=== PATIENT | female | born 1935 | race Caucasian/White ===

== ENCOUNTER 2016-04-13 13:16 | Emergency (ER) | payer OTHER, MEDICARE ==
[2016-04-13 13:31] VITALS: BP 145/83
--- NOTE | 2016-04-13 14:39 | RAD ---
INDICATION: Trauma to left cheek COMPARISON: None TECHNIQUE: Axial source images were acquired from the vertex of the mandible through the orbits. Coronal and sagittal reconstructed images were acquired. FINDINGS: Bones: There is no acute facial bone fracture. There is advanced degenerative changes cervical spine from C4 through the C6-C7 level with reversal of the normal cervical lordosis and retrolisthesis of C4 relative to C3. The findings are identical to the CT of the cervical spine from October 13, 2013. Orbits: The globes and intraconal structures appear intact. The optic nerves are symmetric. Extraocular muscles appear normal. There is no intraconal inflammatory change or retrobulbar mass.. Paranasal sinuses: The paranasal sinuses are clear. Brain: There are no acute abnormalities of the visualized brain parenchyma. Soft tissues: There is prominent soft tissue swelling over the left maxillary antrum with infiltration of the fat consistent with an infiltrative hematoma. There are no other soft tissue abnormality. Other: None The visualized soft tissue elements about the neck appear normal. IMPRESSION: SOFT TISSUE SWELLING/HEMATOMA LEFT MAXILLARY REGION. NO ACUTE FACIAL BONE FRACTURE.
--- NOTE | 2016-04-13 14:46 | RAD ---
Indication: Blunt head trauma. Large hematoma at upper RIGHT cheek. On Coumadin. Comparison: February 22, 2016 Technique: Noncontrast CT vertex of skull through foramen magnum. Report: Mild to moderate prominence of the cerebral sulci and cerebellar fissures. Proportional enlargement of the lateral and third ventricles. Patent basal cisterns. Negative for soto matter white matter obscuration, intra or extra-axial hemorrhage, or mass effect. Decreased density in the periventricular and subcortical white matter while non-specific is most likely due to chronic microangiopathy. Unremarkable visualized orbital contents. Negative for calvarial or skull base fracture. Negative for scalp hematoma. Clear visualized paranasal sinuses and mastoid air spaces. IMPRESSION: 1. No evidence for traumatic brain injury. 2. Involutional change and stigmata of chronic small vessel ischemic disease.
--- NOTE | 2016-04-13 15:04 | UC ---
Head Injury HPI - HPI Summary HPI Summary: 80 year old female with complaints of fall with facial injury approx 30 min ago. Pt states she was walking on the sidewalk to physical therapy and tripped. She struck her left face on the side walk. denies LOC. Denies headache , Denies nausea or vomiting. Denies weakness, neck pain or back pain. On coumadin for afib No focal deficit No distracting injury - History Of Current Complaint Chief Complaint: UCGeneralIllness Stated Complaint: FACIAL INJURY Time Seen by Provider: 04/13/16 13:26 Hx Obtained From: Patient, Family/Rigger Supervisor - ?: No Onset/Duration: Sudden Onset, Lasting Hours - 30 min, Still Present Severity Currently: Mild Severity Initially: Severe Character: Pressure - left cheek Alleviating Factor(s): Nothing Associated Signs And Symptoms: Negative: LOC (Time In Secs./Mins/Hrs), LOC Duration Unknown, Confusion, Memory Loss, Seizure, Epistaxis, Dental Malocclusion, Neck Pain, Nausea, Vomiting Anticoagulant Therapy: Coumadin - for A-fib - Risk Factors SDH Risk Factor: Recent Trauma - fall - Allergies/Home Medications Allergies/Adverse Reactions: Allergies Allergy/AdvReac Type Severity Reaction Status Date / Time Codeine Allergy Unknown Verified 04/13/16 13:22 Reaction Details Morphine Allergy Unknown Verified 04/13/16 13:22 Reaction Details PMH/Surg Hx/FS Hx/Imm Hx Previously Healthy: Yes Endocrine History Of: Denies: Diabetes Cardiovascular History Of: Reports: Cardiac Disorders - Afib, Hypertension Denies: Pacemaker/ICD Respiratory History Of: Reports: Pneumonia Denies: Asthma Psychological History Of: Reports: Anxiety, Depression Cancer History Of: Denies: Breast Cancer Other History Of: Anticoagulant Therapy - plavix, coumadin - Surgical History Surgical History: Yes Surgery Procedure, Year, and Place: AORTIC VALVE REPLACED, STENT 2009. Tonsilectomy - Family History Known Family History: Positive: Hypertension Negative: Diabetes Family History: No FHx breast cancer - Social History Occupation: Retired Lives: With Family - Alcohol Use: None Substance Use Type: None Smoking Status (MU): Former Smoker - Immunization History Most Recent Influenza Vaccination: fall 2014 Most Recent Tetanus Shot: unk Most Recent Pneumonia Vaccination: patient not sure Review of Systems Constitutional: Negative Skin: Bruising - at left upper cheek Eyes: Negative ENT: Negative Respiratory: Negative Cardiovascular: Negative Gastrointestinal: Negative Genitourinary: Negative Motor: Negative Neurovascular: Negative Musculoskeletal: Negative Neurological: Negative Psychological: Negative All Other Systems Reviewed And Are Negative: Yes Physical Exam Triage Information Reviewed: Yes Appearance: Well-Appearing, Well-Nourished, Pain Distress - at left upper cheek - holding ice on it Vital Signs: Initial Vital Signs Temp 98 F 04/13/16 13:23 Pulse 83 04/13/16 13:23 Resp 18 04/13/16 13:23 BP 145/83 04/13/16 13:23 Pulse Ox 95 04/13/16 13:23 Vital Signs Reviewed: Yes Eyes: Positive: Conjunctiva Clear, Other: - PERRLA, good ocular movement. Obvious swelling from upper left cheek to lateral left canthus.. Negative: Discharge ENT: Positive: Pharynx normal, TMs normal - no medel sign., Other: - tenderness over left lateral orbit. able to open and close jaw without pain or clicking.. Negative: Nasal congestion, Nasal drainage Dental: Positive: Other: - teeth intact Neck: Positive: Supple, Nontender - no midline cervical tenderness, No Lymphadenopathy Respiratory: Positive: Chest non-tender, Lungs clear, Normal breath sounds Cardiovascular: Positive: No Murmur - regular rate, irregular rhythum, hx of afib Abdomen Description: Positive: Nontender, No Organomegaly, Soft. Negative: CVA Tenderness (R), CVA Tenderness (L), Distended, Guarding Musculoskeletal: Positive: Strength Intact - able to walk bearing full weight, ROM Intact - moving all 4 extremities well, No Edema Neurological: Positive: Alert, Muscle Tone Normal Psychological: Positive: Age Appropriate Behavior - pleasant and cooperative Skin: Positive: Other - 2x3 abrasion with hematoma at left upper cheek. No bleeding noted. Negative: rashes Head Injury Course/Dx - Course Course Of Treatment: CT maxillofacial and brain = negative. Education about head injury and coumadin and when to seek Emergency Department follow up. Follow up with primary care - Differential Dx/Diagnosis Differential Diagnosis/HQI/PQRI: Contusion, Hematoma, Other - orbital fracture Provider Diagnoses: Contusion with hematoma of left upper face Discharge - Discharge Plan Condition: Stable Disposition: HOME Patient Education Materials: Contusion in Adults (ED), Warfarin (By mouth) Referrals: Aurora Feliciano MD [Primary Care Provider] - 5 Days
== END 2016-04-13 15:29 | disposition home or self-care (01) ==
LOC: UCEAST 13:16
DX: S00.83XA Contusion of other part of head, initial encounter (principal); W19.XXXA Unspecified fall, initial encounter; Y93.01 Activity, walking, marching and hiking; Y92.480 Sidewalk as the place of occurrence of the external cause; I48.91 Unspecified atrial fibrillation; I10 Essential (primary) hypertension; Z87.891 Personal history of nicotine dependence; Z95.2 Presence of prosthetic heart valve; Z79.01 Long term (current) use of anticoagulants; Z88.5 Allergy status to narcotic agent
CPT/HCPCS: 70450; 70486; 99211; G0463

== ENCOUNTER 2016-06-15 14:27 | Emergency (ER) | payer OTHER, MEDICARE ==
[2016-06-15] MEDS ORDERED: Diltiazem IV* 5 MG/ML 5 ML VIAL (for loading dose/IV Push) (25 MG) IV SLOW PU ONE (16:05)
[2016-06-15 16:11] LABS: Hematocrit 40 % (35-47); Hemoglobin 13.6 g/dl (12.0-16.0); Mean Corpuscular HGB Conc 34 g/dl (31-36); Mean Corpuscular Hemoglobin 31 pg (27-31); Mean Corpuscular Volume 92 fL (80-97); Mean Platelet Volume 9 um3 (7.4-10.4); Red Blood Count 4.35 10^6/ul (4.0-5.4); Red Cell Distribution Width 13 % (10.5-15); White Blood Count 8.1 10^3/ul (3.5-10.8)
[2016-06-15] MEDS ORDERED: NS 0.9% 1000 ML* 1,000 ML IV SCH (16:15)
[2016-06-15 16:23] LABS: Albumin 4.2 g/dL (3.2-5.2); BUN/Creatinine Ratio 31.3 (8-20); C Reactive Protein 1.49 mg/L (< 5.00); Calcium 9.8 mg/dL (8.6-10.3); EGFR African American 114.3 (>60); EGFR Non-African American 88.8 (>60); Globulin 3.1 g/dL (2-4); Magnesium 1.8 mg/dL (1.9-2.7); Potassium 4.4 mmol/L (3.5-5.0); Total Bilirubin 0.7 mg/dL (0.2-1.0); Total Protein 7.3 g/dL (6.4-8.9)
[2016-06-15 16:25] LABS: Troponin I 0.01 ng/mL (<0.04)
--- NOTE | 2016-06-15 16:36 | RAD ---
Indication: Shortness of breath, tachycardia. Single frontal view of the chest performed at 1605 hours was reviewed. Comparison is made with previous exam dated February 25, 2016. 20 1510 aorta is noted which is unchanged from prior exam. Heart is at the upper limits of normal in size. Lung jung appear hyperinflated with chronic interstitial disease. 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
[2016-06-15 16:50] LABS: TSH (Thyroid Stimulating Horm) 1.63 mcIU/mL (0.34-5.60)
[2016-06-15] MEDS ORDERED: Diltiazem TAB* 60 MG PO ONE (16:58)
[2016-06-15] MEDS ORDERED: Magnesium Oxide TAB* 400 MG PO ONE (18:14)
--- NOTE | 2016-06-15 18:19 | ED ---
Mack Nava Erika, scribed for Wili Vázquez MD on 06/15/16 at 1657 . Palpitations / Dysrhythmia - HPI Summary HPI Summary: Patient is an 80-year-old female presenting to the ED with her with a CC of palpitations. Patient reports that she became lightheaded with SOB and chest heaviness today. Patient denies chest pain and pedal edema. Symptoms started after breakfast today. She reports that she has been in A Fib 2x before, one of which required cardioversion. Patient takes warfarin and diltiazem for her A Fib. Pt denies Hx AK, but has cardiac stents. Hx aortic valve replacement in 2009 at [facility]. Patient is followed by Dr. Arreaga. - History of Current Complaint Chief Complaint: EDDysrhythmPalp Time Seen by Provider: 06/15/16 15:43 Hx Obtained From: Patient, Family/Salesperson Furniture - Onset/Duration: Gradual Onset, Lasting Hours, Still Present Timing: Constant Severity Currently: Moderate Alleviating: Nothing Associated Signs & Symptoms: Lightheadedness, Shortness of Breath - Allergy/Home Medications Allergies/Adverse Reactions: Allergies Allergy/AdvReac Type Severity Reaction Status Date / Time Codeine Allergy Unknown Verified 04/13/16 13:22 Reaction Details Morphine Allergy Unknown Verified 04/13/16 13:22 Reaction Details PMH/Surg Hx/FS Hx/Imm Hx Endocrine/Hematology History: Reports: Hx Anticoagulant Therapy - plavix, coumadin Denies: Hx Diabetes Cardiovascular History: Reports: Hx Atrial Fibrillation, Hx Coronary Artery Disease, Hx Hypercholesterolemia, Hx Hypertension, Hx Valvular Heart Disease, Other Cardiovascular Problems/Disorders - AORTIC VALVE REPAIR 2009 Denies: Hx Pacemaker/ICD Respiratory History: Reports: Hx Pneumonia Denies: Hx Asthma Musculoskeletal History: Denies: Hx Osteoporosis Sensory History: Reports: Hx Contacts or Glasses Opthamlomology History: Reports: Hx Contacts or Glasses Psychiatric History: Reports: Hx Anxiety, Hx Depression Denies: Hx Panic Disorder - Cancer History Hx Chemotherapy: No Hx Radiation Therapy: No - Surgical History Surgery Procedure, Year, and Place: AORTIC VALVE REPLACED, STENT 2009. Tonsilectomy - Immunization History Date of Tetanus Vaccine: Unk Date of Influenza Vaccine: Fall 2014 Infectious Disease History: No Infectious Disease History: Denies: Traveled Outside the [place] in Last 30 Days - Family History Known Family History: Positive: None - reviewed & noncontributory, Hypertension Negative: Diabetes Family History: No FHx breast cancer - Social History Alcohol Use: None Hx Substance Use: No Substance Use Type: Reports: None Hx Tobacco Use: Yes Smoking Status (MU): Former Smoker Review of Systems Cardiovascular: Other - chest heaviness Positive: Palpitations. Negative: Chest Pain Positive: Shortness Of Breath Negative: Edema Neurological: Other - lightheaded All Other Systems Reviewed And Are Negative: Yes Physical Exam Triage Information Reviewed: Yes Vital Signs On Initial Exam: Initial Vitals Temp Pulse Resp BP Pulse Ox 97.6 F 132 16 157/102 99 06/15/16 14:30 06/15/16 14:30 06/15/16 14:30 06/15/16 14:30 06/15/16 14:30 Vital Signs Reviewed: Yes Appearance: Positive: Well-Appearing, No Pain Distress Skin: Positive: Warm, Skin Color Reflects Adequate Perfusion, Dry Head/Face: Positive: Normal Head/Face Inspection Eyes: Positive: EOMI, JARED ENT: Positive: Normal ENT inspection Neck: Positive: Supple, Nontender Respiratory/Lung Sounds: Positive: Clear to Auscultation, Breath Sounds Present Cardiovascular: Positive: Tachycardia - irregularly irregular rhythm Abdomen Description: Positive: Nontender, Soft Bowel Sounds: Positive: Present Musculoskeletal: Positive: Normal, Strength/ROM Intact Neurological: Positive: Normal, Sensory/Motor Intact, Alert, Oriented to Person Place, Time Psychiatric: Positive: Affect/Mood Appropriate - Scott Coma Scale Coma Scale Total: 15 Diagnostics - Vital Signs Vital Signs Temp Pulse Resp BP Pulse Ox 06/15/16 14:30 97.6 F 132 16 157/102 99 - Laboratory Lab Results: Lab Results 06/15/16 06/15/16 06/15/16 Range/Units 15:50 15:50 15:50 WBC 8.1 (3.5-10.8) 10^3/ul RBC 4.35 (4.0-5.4) 10^6/ul Hgb 13.6 (12.0-16.0) g/dl Hct 40 (35-47) % MCV 92 (80-97) fL MCH 31 (27-31) pg MCHC 34 (31-36) g/dl RDW 13 (10.5-15) % Plt Count 231 (150-450) 10^3/ul MPV 9 (7.4-10.4) um3 Neut % (Auto) 64.7 (38-83) % Lymph % (Auto) 22.8 L (25-47) % [place] % (Auto) 9.7 H (1-9) % Eos % (Auto) 1.5 (0-6) % Baso % (Auto) 1.3 (0-2) % Absolute Neuts (auto) 5.2 (1.5-7.7) 10^3/ul Absolute Lymphs (auto) 1.8 (1.0-4.8) 10^3/ul Absolute Monos (auto) 0.8 (0-0.8) 10^3/ul Absolute Eos (auto) 0.1 (0-0.6) 10^3/ul Absolute Basos (auto) 0.1 (0-0.2) 10^3/ul Absolute Nucleated RBC 0.01 10^3/ul Nucleated RBC % 0.1 INR (Anticoag Therapy) (0.89-1.11) APTT (26.0-36.3) seconds D-Dimer, Quantitative (Less Than 230) ng/mL Sodium 123 L (133-145) mmol/L Potassium 4.4 (3.5-5.0) mmol/L Chloride 92 L (101-111) mmol/L Carbon Dioxide 24 (22-32) mmol/L Anion Gap 7 (2-11) mmol/L BUN 20 (6-24) mg/dL Creatinine 0.64 (0.51-0.95) mg/dL Est GFR ( Amer) 114.3 (>60) Est GFR (Non-Af Amer) 88.8 (>60) BUN/Creatinine Ratio 31.3 H (8-20) Glucose 119 H (70-100) mg/dL Lactic Acid 1.4 (0.5-2.0) mmol/L Calcium 9.8 (8.6-10.3) mg/dL Magnesium 1.8 L (1.9-2.7) mg/dL Total Bilirubin 0.70 (0.2-1.0) mg/dL AST 16 (13-39) U/L ALT 10 (7-52) U/L Alkaline Phosphatase 66 (34-104) U/L Total Creatine Kinase 34 (10-223) U/L CK-MB (CK-2) 1.5 (0.6-6.3) ng/mL Troponin I 0.01 (<0.04) ng/mL C-Reactive Protein 1.49 (< 5.00) mg/L B-Natriuretic Peptide ( - 100) pg/mL Total Protein 7.3 (6.4-8.9) g/dL Albumin 4.2 (3.2-5.2) g/dL Globulin 3.1 (2-4) g/dL Albumin/Globulin Ratio 1.4 (1-3) Lipase 21 (11.0-82.0) U/L TSH 1.63 (0.34-5.60) mcIU/mL 06/15/16 06/15/16 Range/Units 15:50 16:28 WBC (3.5-10.8) 10^3/ul RBC (4.0-5.4) 10^6/ul Hgb (12.0-16.0) g/dl Hct (35-47) % MCV (80-97) fL MCH (27-31) pg MCHC (31-36) g/dl RDW (10.5-15) % Plt Count (150-450) 10^3/ul MPV (7.4-10.4) um3 Neut % (Auto) (38-83) % Lymph % (Auto) (25-47) % [place] % (Auto) (1-9) % Eos % (Auto) (0-6) % Baso % (Auto) (0-2) % Absolute Neuts (auto) (1.5-7.7) 10^3/ul Absolute Lymphs (auto) (1.0-4.8) 10^3/ul Absolute Monos (auto) (0-0.8) 10^3/ul Absolute Eos (auto) (0-0.6) 10^3/ul Absolute Basos (auto) (0-0.2) 10^3/ul Absolute Nucleated RBC 10^3/ul Nucleated RBC % INR (Anticoag Therapy) 2.65 H (0.89-1.11) APTT 36.2 (26.0-36.3) seconds D-Dimer, Quantitative < 200 (Less Than 230) ng/mL Sodium (133-145) mmol/L Potassium (3.5-5.0) mmol/L Chloride (101-111) mmol/L Carbon Dioxide (22-32) mmol/L Anion Gap (2-11) mmol/L BUN (6-24) mg/dL Creatinine (0.51-0.95) mg/dL Est GFR ( Amer) (>60) Est GFR (Non-Af Amer) (>60) BUN/Creatinine Ratio (8-20) Glucose (70-100) mg/dL Lactic Acid (0.5-2.0) mmol/L Calcium (8.6-10.3) mg/dL Magnesium (1.9-2.7) mg/dL Total Bilirubin (0.2-1.0) mg/dL AST (13-39) U/L ALT (7-52) U/L Alkaline Phosphatase (34-104) U/L Total Creatine Kinase (10-223) U/L CK-MB (CK-2) (0.6-6.3) ng/mL Troponin I (<0.04) ng/mL C-Reactive Protein (< 5.00) mg/L B-Natriuretic Peptide 168 H ( - 100) pg/mL Total Protein (6.4-8.9) g/dL Albumin (3.2-5.2) g/dL Globulin (2-4) g/dL Albumin/Globulin Ratio (1-3) Lipase (11.0-82.0) U/L TSH (0.34-5.60) mcIU/mL Result Diagrams: 06/15/16 15:50 06/15/16 15:50 Lab Statement: Any lab studies that have been ordered have been reviewed, and results considered in the medical decision making process. 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 - EKG 14:41 Cardiac Rate: Tachycardia - at 117 bpm EKG Rhythm: Atrial Fibrillation Re-Evaluation - Re-Evaluation First Eval Re-Evaluation Time: 18:09 Change: Improved Comment: Discussed lab, EKG, and imaging results with patient. Patient requests discharge at this time Course/Dx - Course Course Of Treatment: No critical care time. Assessment/Plan: GIVEN CARDIZEM 10MG IV AND 60MG PO. IMPROVED IN ED. PATIENT WISHES TO GO HOME. WALKED IN ED. DISCHARGE HOME STABLE. - Diagnoses Provider Diagnoses: A-fib, Hyponatremia, Hypomagnesemia Discharge - Discharge Plan Condition: Stable Disposition: HOME Patient Education Materials: Atrial Fibrillation (ED), Hyponatremia (ED), Hypomagnesemia (ED) Referrals: Aurora Feliciano MD [Primary Care Provider] - Additional Instructions: FOLLOW UP WITH YOUR DOCTOR. CALL YOUR PSYCHOLOGICAL OPERATIONS OFFICER FOR FOLLOW UP. YOUR SODIUM IS LOW. DISCUSS THIS WITH YOUR DOCTOR. RETURN TO THE EMERGENCY DEPARTMENT FOR ANY WORSENING OF YOUR CONDITION; CHEST PAIN, SHORTNESS OF BREATH, FAST HEART RATE OR QUESTIONS OR CONCERNS. The documentation as recorded by the Mack morillo Erika accurately reflects the service I personally performed and the decisions made by me, Wili Vázquez MD.
[2016-06-15 18:27] VITALS: BP 134/99
== END 2016-06-15 18:46 | disposition home or self-care (01) ==
LOC: ED 14:27
DX: I48.91 Unspecified atrial fibrillation (principal); E87.1 Hypo-osmolality and hyponatremia; R42 Dizziness and giddiness; E83.42 Hypomagnesemia; R06.02 Shortness of breath; R00.2 Palpitations; Z87.891 Personal history of nicotine dependence
CPT/HCPCS: 36415; 71010; 80053; 82550; 82553; 83605; 83690; 83735; 83880; 84443; 84484; 85025; 85379; 85610; 85730; 86140; 93005; 99283; A9270-GY

== ENCOUNTER 2016-11-01 10:01 | Emergency (ER) | payer OTHER, MEDICARE ==
--- NOTE | 2016-11-01 11:18 | RAD ---
HISTORY: Fall, right-sided pain COMPARISONS: None VIEWS: 5, Frontal and oblique views of the right hemithorax. FINDINGS: There is a minimally displaced fracture of the right fourth rib. There is no appreciable pneumothorax. IMPRESSION: RIGHT FOURTH RIB FRACTURE. NO APPRECIABLE PNEUMOTHORAX.
--- NOTE | 2016-11-01 11:21 | RAD ---
Indication: Right shoulder blade. 2 views of the chest including dual energy PA views demonstrate no mediastinal shift. Heart is of normal size and configuration. Tortuous descending aorta is noted. Lung jung demonstrate no pleural fluid, pneumonia or pneumothorax. IMPRESSION: No active cardiopulmonary disease is noted. Patient is status post transsternal thoracotomy.
--- NOTE | 2016-11-01 11:34 | RAD ---
HISTORY: Fall, head contusion COMPARISONS: May 14, 2016 TECHNIQUE: Multiple contiguous axial CT scans were obtained of the head without intravenous contrast. FINDINGS: HEMORRHAGE/INFARCT: There is no hemorrhage or acute infarct. MASSES/SHIFT: There is no mass or shift. EXTRA-AXIAL SPACES: There are no extra-axial fluid collections. SULCI AND VENTRICLES: There is diffuse and proportional enlargement of the sulci and ventricles. CEREBRUM: There is hypoattenuation of the periventricular and subcortical white matter. BRAINSTEM: There are no focal parenchymal abnormalities. CEREBELLUM: There are no focal parenchymal abnormalities. 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 ORBITS: The orbits are unremarkable. BONES AND SOFT TISSUE: No bone or soft tissue abnormalities are noted. OTHER: None IMPRESSION: NO ACUTE INTRACRANIAL PATHOLOGY. DIFFUSE INVOLUTIONAL CHANGE WITH CHRONIC SMALL VESSEL ISCHEMIC CHANGES.
--- NOTE | 2016-11-01 11:38 | RAD ---
HISTORY: Fall, back pain COMPARISONS: October 21, 2013 TECHNIQUE: Multiple contiguous axial CT scans were obtained of the cervical spine without intravenous contrast, with coronal and sagittal multiplanar reformations. FINDINGS: BRAIN: The visualized brain is unremarkable CENTRAL CANAL: Evaluation of the central canal is limited on CT technique; however, there is no obvious canalicular mass or epidural hemorrhage. ALIGNMENT: There is straightening of the cervical lordosis. There is grade 1 anterolisthesis of C3 on C4. This is stable. VERTEBRAL BODIES: There is diffuse osteopenia. There is no displaced fracture. There is multilevel anterolateral marginal osteophyte formation. JOINTS: There is no dislocation. There is osteoarthritis of the uncovertebral and facet joints. There is osteoarthritis of the atlantoaxial articulation. There are sutures across the C2-C3 facet joint on the left. MUSCULATURE: Unremarkable INTERVERTEBRAL DISCS: There is diffuse loss of intervertebral disc height. AXIAL IMAGES: C2-C3: There is no osseous neural foraminal narrowing or central canal stenosis. C3-C4: There is bilateral vertebral and facet hypertrophy. There is moderate left neural foraminal narrowing. There is no osseous central canal stenosis. C4-C5: There is bilateral uncovertebral and facet hypertrophy. There is severe right and mild left neural foraminal narrowing. There is no osseous central canal stenosis. C5-C6: There is bilateral uncovertebral and facet hypertrophy. There is severe right neural foraminal narrowing. There is no osseous central canal stenosis. C6-C7: There is bilateral uncovertebral and facet hypertrophy. There is moderate bilateral neural foraminal narrowing. There is no osseous central canal stenosis. C7-T1: There is no osseous neural foraminal narrowing or central canal stenosis. SOFT TISSUES: The visualized soft tissues of the neck are unremarkable. The prevertebral fat stripe is preserved. OTHER: None. IMPRESSION: DEGENERATIVE DISC DISEASE AND OSTEOARTHRITIS DESCRIBED ABOVE. NO ACUTE OSSEOUS INJURY TO THE CERVICAL SPINE
--- NOTE | 2016-11-01 12:10 | RAD ---
HISTORY: Right wrist pain COMPARISONS: None VIEWS: 2, Frontal and lateral views of the right wrist FINDINGS: BONE DENSITY: There is diffuse osteopenia. BONES: There is no displaced fracture. JOINTS: There is advanced osteoarthritis of the first CMC and scaphoid-trapezium articulation. There is chondrocalcinosis. ALIGNMENT: There is no dislocation. SOFT TISSUES: Unremarkable. OTHER FINDINGS: None. IMPRESSION: 1. OSTEOPENIA. 2. OSTEOARTHRITIS. 3. NO ACUTE OSSEOUS INJURY. THE DEGREE OF OSTEOPENIA MAY MAKE A NONDISPLACED FRACTURE RADIOGRAPHICALLY OCCULT. IF SYMPTOMS PERSIST, RECOMMEND REPEAT IMAGING.
[2016-11-01 12:30] LABS: Hematocrit 44 % (35-47); Hemoglobin 14.4 g/dl (12.0-16.0); Mean Corpuscular HGB Conc 33 g/dl (31-36); Mean Corpuscular Hemoglobin 31 pg (27-31); Mean Corpuscular Volume 95 fL (80-97); Mean Platelet Volume 9 um3 (7.4-10.4); Red Blood Count 4.61 10^6/ul (4.0-5.4); Red Cell Distribution Width 14 % (10.5-15); White Blood Count 11.1 10^3/ul (3.5-10.8)
[2016-11-01 12:54] LABS: Albumin 4.2 g/dL (3.2-5.2); BUN/Creatinine Ratio 21.7 (8-20); Calcium 9.6 mg/dL (8.6-10.3); EGFR African American 123.1 (>60); EGFR Non-African American 95.7 (>60); Globulin 3.2 g/dL (2-4); Potassium 3.9 mmol/L (3.5-5.0); Total Bilirubin 0.7 mg/dL (0.2-1.0); Total Protein 7.4 g/dL (6.4-8.9)
[2016-11-01 13:59] VITALS: BP 154/96
--- NOTE | 2016-11-05 08:03 | ED ---
Mike Nava Alfonso, scribed for Lonnie Romero MD on 11/01/16 at 1059 . Adult Trauma - HPI Summary HPI Summary: This patient is an 80 year old F presenting to [facility] accompanied by female s/p fall at 1700 yesterday. The patient rates the pain 7/10 in severity. Pain aggravated by movement and alleviated by nothing. Patient reports right wrist pain, back pain, dizziness, and head trauma. Patient denies LOC, urinary symptoms, and bowel symptoms. She is taking Coumadin. PMHx of arthritis. - History of Current Complaint Chief Complaint: EDTraumaMultiple Stated Complaint: RT WRIST/BACK PAIN FROM FALL Time Seen by Provider: 11/01/16 10:21 Hx Obtained From: Patient Mechanism of Injury: Fall Loss of Consciousness: no loss of consciousness Onset/Duration: Started Days Ago - 1700 yesterday, Resolved Onset of Pain: Prior to Arrival Onset Severity: Moderate Current Severity: Moderate Pain Intensity: 7 Pain Scale Used: 0-10 Numeric Aggravating Factor(s): Movement Alleviating Factor(s): Nothing Associated Signs & Symptoms: Positive: Other: - Patient reports right wrist pain , back pain, dizziness, and head trauma. Patient denies LOC, urinary symptoms, and bowel symptoms. Related History: Anticoagulants - Allergy/Home Medications Allergies/Adverse Reactions: Allergies Allergy/AdvReac Type Severity Reaction Status Date / Time Codeine Allergy Unknown Verified 11/01/16 10:07 Reaction Details Morphine Allergy Unknown Verified 11/01/16 10:07 Reaction Details PMH/Surg Hx/FS Hx/Imm Hx Endocrine/Hematology History: Reports: Hx Anticoagulant Therapy - plavix, coumadin Denies: Hx Diabetes Cardiovascular History: Reports: Hx Atrial Fibrillation, Hx Coronary Artery Disease, Hx Hypercholesterolemia, Hx Hypertension, Hx Valvular Heart Disease, Other Cardiovascular Problems/Disorders - AORTIC VALVE REPAIR 2009 Denies: Hx Pacemaker/ICD Respiratory History: Reports: Hx Pneumonia Denies: Hx Asthma Musculoskeletal History: Reports: Hx Arthritis Denies: Hx Osteoporosis Sensory History: Reports: Hx Contacts or Glasses Opthamlomology History: Reports: Hx Contacts or Glasses Psychiatric History: Reports: Hx Anxiety, Hx Depression Denies: Hx Panic Disorder - Cancer History Hx Chemotherapy: No Hx Radiation Therapy: No - Surgical History Surgery Procedure, Year, and Place: AORTIC VALVE REPLACED, STENT 2009. Tonsilectomy - Immunization History Date of Tetanus Vaccine: Unk Date of Influenza Vaccine: Fall 2014 Infectious Disease History: No Infectious Disease History: Denies: Traveled Outside the [place] in Last 30 Days - Family History Known Family History: Positive: Hypertension Negative: Diabetes Family History: No FHx breast cancer - Social History Alcohol Use: None Hx Substance Use: No Substance Use Type: Reports: None Hx Tobacco Use: Yes Smoking Status (MU): Former Smoker Review of Systems Positive: Other - Negative bowel symptoms. Positive: no symptoms reported Positive: Other - Positive fall, head trauma, right wrist pain, back pain. Neurological: Other - Positive dizziness; negative LOC. All Other Systems Reviewed And Are Negative: Yes Physical Exam - Summary Physical Exam Summary: VITAL SIGNS: Reviewed. GENERAL: Patient is an elderly and nourished female who is lying comfortable in the stretcher. Patient is not in any acute respiratory distress. HEAD AND FACE: No signs of trauma. No ecchymosis, hematomas or skull depressions. No sinus tenderness. EYES: PERRLA, EOMI x 2, No injected conjunctiva, no nystagmus. EARS: Hearing grossly intact. Ear canals and tympanic membranes are within normal limits. MOUTH: Oropharynx within normal limits. NECK: Supple, trachea is midline, no adenopathy, no JVD, no carotid bruit, no c- spine tenderness, neck with full ROM. CHEST: Symmetric, no tenderness at palpation. No ecchymosis at chest. LUNGS: Clear to auscultation bilaterally. No wheezing or crackles. CVS: Regular rate and rhythm, S1 and S2 present, no murmurs or gallops appreciated. ABDOMEN: Soft, non-tender. No signs of distention. No rebound no guarding, and no masses palpated. Bowel sounds are normal. EXTREMITIES: FROM in all major joints, no edema, no cyanosis or clubbing. Ecchymosis at back and right wrist. NEURO: Alert and oriented x 3. No acute neurological deficits. Speech is normal and follows commands. SKIN: Dry and warm Triage Information Reviewed: Yes Vital Signs On Initial Exam: Initial Vitals Temp Pulse Resp BP Pulse Ox 98.4 F 96 16 121/80 95 11/01/16 10:11/01/16 10:07 11/01/16 10:07 11/01/16 10:11/01/16 10:07 Vital Signs Reviewed: Yes - [place] Coma Scale Coma Scale Total: 15 Diagnostics - Vital Signs Vital Signs Temp Pulse Resp BP Pulse Ox 11/01/16 10:18 98.4 F 96 16 121/80 95 11/01/16 10:07 98.4 F 96 16 121/80 95 - Laboratory Lab Results: Lab Results 11/01/16 11/01/16 11/01/16 Range/Units 12:17 12:17 12:17 WBC 11.1 H (3.5-10.8) 10^3/ul RBC 4.61 (4.0-5.4) 10^6/ul Hgb 14.4 (12.0-16.0) g/dl Hct 44 (35-47) % MCV 95 (80-97) fL MCH 31 (27-31) pg MCHC 33 (31-36) g/dl RDW 14 (10.5-15) % Plt Count 201 (150-450) 10^3/ul MPV 9 (7.4-10.4) um3 Neut % (Auto) 73.9 (38-83) % Lymph % (Auto) 16.4 L (25-47) % [place] % (Auto) 8.3 (1-9) % Eos % (Auto) 0.4 (0-6) % Baso % (Auto) 1.0 (0-2) % Absolute Neuts (auto) 8.2 H (1.5-7.7) 10^3/ul Absolute Lymphs (auto) 1.8 (1.0-4.8) 10^3/ul Absolute Monos (auto) 0.9 H (0-0.8) 10^3/ul Absolute Eos (auto) 0 (0-0.6) 10^3/ul Absolute Basos (auto) 0.1 (0-0.2) 10^3/ul Absolute Nucleated RBC 0 10^3/ul Nucleated RBC % 0 INR (Anticoag Therapy) 2.29 H (0.89-1.11) Sodium 127 L (133-145) mmol/L Potassium 3.9 (3.5-5.0) mmol/L Chloride 94 L (101-111) mmol/L Carbon Dioxide 25 (22-32) mmol/L Anion Gap 8 (2-11) mmol/L BUN 13 (6-24) mg/dL Creatinine 0.60 (0.51-0.95) mg/dL Est GFR ( Amer) 123.1 (>60) Est GFR (Non-Af Amer) 95.7 (>60) BUN/Creatinine Ratio 21.7 H (8-20) Glucose 130 H (70-100) mg/dL Calcium 9.6 (8.6-10.3) mg/dL Total Bilirubin 0.70 (0.2-1.0) mg/dL AST 16 (13-39) U/L ALT 13 (7-52) U/L Alkaline Phosphatase 62 (34-104) U/L Total Protein 7.4 (6.4-8.9) g/dL Albumin 4.2 (3.2-5.2) g/dL Globulin 3.2 (2-4) g/dL Albumin/Globulin Ratio 1.3 (1-3) Result Diagrams: 11/01/16 12:17 08 12:17 Lab Statement: Any lab studies that have been ordered have been reviewed, and results considered in the medical decision making process. - Radiology CXR Radiology Interpretation Completed By: Radiologist - No active cardiopulmonary disease is noted. Patient is status post transsternal thoracotomy. Ribs X-Ray Radiology Interpretation Completed By: Radiologist - RIGHT FOURTH RIB FRACTURE. NO APPRECIABLE PNEUMOTHORAX. Wrist X-Ray Radiology Interpretation Completed By: Radiologist - 1. OSTEOPENIA. 2. OSTEOARTHRITIS. 3. NO ACUTE OSSEOUS INJURY. THE DEGREE OF OSTEOPENIA MAY MAKE A NONDISPLACED FRACTURE RADIOGRAPHICALLY OCCULT. IF SYMPTOMS PERSIST, RECOMMEND REPEAT IMAGING. - CT Brain CT Interpretation Completed By: Radiologist - NO ACUTE INTRACRANIAL PATHOLOGY. DIFFUSE INVOLUTIONAL CHANGE WITH CHRONIC SMALL VESSEL ISCHEMIC CHANGES. Cervical Spine CT Interpretation Completed By: Radiologist - DEGENERATIVE DISC DISEASE AND OSTEOARTHRITIS DESCRIBED ABOVE. NO ACUTE OSSEOUS INJURY TO THE CERVICAL SPINE Adult Trauma Course/Dx - Course Course Of Treatment: This patient is an 80 year old F presenting to [facility] accompanied by female s/p fall at 1700 yesterday. The patient rates the pain 7/10 in severity. Pain aggravated by movement and alleviated by nothing. Patient reports right wrist pain, back pain, dizziness, and head trauma. Patient denies LOC, urinary symptoms, and bowel symptoms. She is taking Coumadin. PMHx of arthritis. Assessment/Plan: Test results without any significant abnormalities except for WBC of 11.1, INR of 2.29, Sodium of 127, and glucose of 130. CXR reveals No active cardiopulmonary disease is noted. Patient is status post transsternal thoracotomy. Ribs X-Ray reveals RIGHT FOURTH RIB FRACTURE. NO APPRECIABLE PNEUMOTHORAX. Wrist X-Ray reveals 1. OSTEOPENIA. 2. OSTEOARTHRITIS. 3. NO ACUTE OSSEOUS INJURY. THE DEGREE OF OSTEOPENIA MAY MAKE A NONDISPLACED FRACTURE RADIOGRAPHICALLY OCCULT. IF SYMPTOMS PERSIST, RECOMMEND REPEAT IMAGING. Brain CT reveals NO ACUTE INTRACRANIAL PATHOLOGY. DIFFUSE INVOLUTIONAL CHANGE WITH CHRONIC SMALL VESSEL ISCHEMIC CHANGES. Cervical Spine CT reveals DEGENERATIVE DISC DISEASE AND OSTEOARTHRITIS DESCRIBED ABOVE. NO ACUTE OSSEOUS INJURY TO THE CERVICAL SPINE. The only abnormal finding is the rib fracture. The patient declines any narcotics. She will take Tylenol for the pain. She will be given an incentive spirometer and she will be discharge home with PCP follow up. Patient is hemodynamically stable and alert and oriented to person, place, and time. At this point I discussed all the findings and test results with the patient. Patient was instructed to return to the emergency room immediately if any of the symptoms return or worsens. Patient understands and agrees. Neurological exam before discharge: Patient is alert and oriented x 3. No acute neurological deficits. Patient vital signs are stable. Patient is to follow up with primary care physician in the next 2 - 3 days. Patient understands and agrees. - Diagnoses Differential Diagnosis/HQI/PQRI: Positive: Contusion(s), Fracture, Dislocation, Hematoma(s), Laceration(s), Sprain, Strain Provider Diagnoses: Rib fracture, Head contusion, Wrist contusion Discharge - Discharge Plan Condition: Stable Disposition: HOME Patient Education Materials: Facial Contusion (ED), Rib Fracture (ED) Referrals: Aurora Feliciano MD [Primary Care Provider] - 3 Days The documentation as recorded by the Mike morillo Alfonso accurately reflects the service I personally performed and the decisions made by , Lonnie Romero MD.
== END 2016-11-01 14:00 | disposition home or self-care (01) ==
LOC: ED 10:01
DX: S22.39XA Fracture of one rib, unspecified side, initial encounter for closed fracture (principal); W19.XXXA Unspecified fall, initial encounter; Y93.9 Activity, unspecified; Y92.9 Unspecified place or not applicable; Z87.891 Personal history of nicotine dependence; S00.93XA Contusion of unspecified part of head, initial encounter; S60.219A Contusion of unspecified wrist, initial encounter
CPT/HCPCS: 36415; 70450; 71020; 72125; 80053; 85025; 85610; 99282

== ENCOUNTER 2017-01-09 11:59 | Emergency (ER) | payer OTHER, MEDICARE ==
[2017-01-09 13:11] LABS: Hematocrit 43 % (35-47); Hemoglobin 15.1 g/dl (12.0-16.0); Mean Corpuscular HGB Conc 35 g/dl (31-36); Mean Corpuscular Hemoglobin 33 pg (27-31); Mean Corpuscular Volume 94 fL (80-97); Mean Platelet Volume 9 um3 (7.4-10.4); Red Blood Count 4.63 10^6/ul (4.0-5.4); Red Cell Distribution Width 13 % (10.5-15); White Blood Count 8.1 10^3/ul (3.5-10.8)
--- NOTE | 2017-01-09 13:24 | RAD ---
Indication: Shortness of breath. Single frontal view of the chest performed at 1255 hours was reviewed. Comparison is made with previous exam dated November 01, 2016. No mediastinal shift is noted. Tortuous descending aorta is noted. Heart is at the upper limits of normal size. Lung jung demonstrate no pleural fluid, pneumonia or pneumothorax. Patient is status post transsternal thoracotomy. IMPRESSION: NO ACTIVE DISEASE IS NOTED. POSTOPERATIVE CHANGES ARE NOTED.
[2017-01-09 13:26] LABS: Albumin 4.2 g/dL (3.2-5.2); BUN/Creatinine Ratio 23.5 (8-20); Calcium 9.4 mg/dL (8.6-10.3); EGFR African American 106.3 (>60); EGFR Non-African American 82.6 (>60); Globulin 3.3 g/dL (2-4); Magnesium 1.8 mg/dL (1.9-2.7); Potassium 4.1 mmol/L (3.5-5.0); Total Bilirubin 0.7 mg/dL (0.2-1.0); Total Protein 7.5 g/dL (6.4-8.9)
[2017-01-09 15:40] VITALS: BP 135/90
--- NOTE | 2017-01-11 16:31 | ED ---
Vince Nava Benjamin, scribed for Florencio Amezcua MD on 01/09/17 at 1248 . Shortness of Breath - HPI Summary HPI Summary: 81yo female c/o sudden onset of intermittent SOB while exercising at lot, also when sitting down sometime since this morning. SOB is better now than initially onset, but pt is still slightly SOB. Pt has Hx of A-fib, CAD, CABG, and is on warfarin. A-fib occurs intermittently. Pt has hx of being cardioverted. 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 Onset/Duration: Sudden Onset, Lasting Hours - since this morning, Still Present Timing: Intermittent Episodes Lasting: Current Severity: Moderate Dyspnea At: Exertion Aggrevating Factors: Movement Alleviating Factors: Spontaneous Resolution Associated Signs & Symptoms: Negative - Allergy/Home Medications Allergies/Adverse Reactions: Allergies Allergy/AdvReac Type Severity Reaction Status Date / Time Codeine Allergy Unknown Verified 01/09/17 12:05 Reaction Details Morphine Allergy Unknown Verified 01/09/17 12:05 Reaction Details PMH/Surg Hx/FS Hx/Imm Hx Endocrine/Hematology History: Reports: Hx Anticoagulant Therapy - plavix, coumadin Denies: Hx Diabetes Cardiovascular History: Reports: Hx Atrial Fibrillation, Hx Coronary Artery Disease, Hx Hypercholesterolemia, Hx Hypertension, Hx Valvular Heart Disease, Other Cardiovascular Problems/Disorders - AORTIC VALVE REPAIR 2009 Denies: Hx Pacemaker/ICD Respiratory History: Reports: Hx Pneumonia Denies: Hx Asthma Musculoskeletal History: Reports: Hx Arthritis Denies: Hx Osteoporosis Sensory History: Reports: Hx Contacts or Glasses Opthamlomology History: Reports: Hx Contacts or Glasses Psychiatric History: Reports: Hx Anxiety, Hx Depression Denies: Hx Panic Disorder - Cancer History Hx Chemotherapy: No Hx Radiation Therapy: No - Surgical History Surgery Procedure, Year, and Place: AORTIC VALVE REPLACED, STENT 2009. Tonsilectomy - Immunization History Date of Tetanus Vaccine: Unk Date of Influenza Vaccine: Fall 2014 Infectious Disease History: No Infectious Disease History: Denies: Traveled Outside the [place] in Last 30 Days - Family History Known Family History: Positive: Hypertension Negative: Diabetes Family History: No FHx breast cancer - Social History Alcohol Use: None Hx Substance Use: No Substance Use Type: Reports: None Hx Tobacco Use: Yes Smoking Status (MU): Former Smoker Review of Systems Constitutional: Negative Eyes: Negative ENT: Negative Positive: Palpitations Positive: Shortness Of Breath Gastrointestinal: Negative Genitourinary: Negative Positive: no symptoms reported Musculoskeletal: Negative Skin: Negative Neurological: Negative Psychological: Normal All Other Systems Reviewed And Are Negative: Yes Physical Exam Triage Information Reviewed: Yes Vital Signs On Initial Exam: Initial Vitals Temp Pulse Resp BP Pulse Ox 97.0 F 114 16 145/85 98 01/09/17 12:03 01/09/17 12:03 01/09/17 12:03 01/09/17 12:03 01/09/17 12:03 Vital Signs Reviewed: Yes Appearance: Positive: Well-Appearing, No Pain Distress, Well-Nourished Skin: Positive: Warm, Skin Color Reflects Adequate Perfusion, Dry Head/Face: Positive: Normal Head/Face Inspection Eyes: Positive: Normal, Conjunctiva Clear ENT: Positive: Normal ENT inspection, Hearing grossly normal Neck: Positive: Supple, Nontender Respiratory/Lung Sounds: Positive: Clear to Auscultation, Breath Sounds Present Cardiovascular: Positive: IRR, Tachycardia - borderline tachycardia Abdomen Description: Positive: Nontender, Soft Bowel Sounds: Positive: Present Musculoskeletal: Positive: Strength/ROM Intact Neurological: Positive: Sensory/Motor Intact, Alert, Oriented to Person Place, Time Psychiatric: Positive: Affect/Mood Appropriate Diagnostics - Vital Signs Vital Signs Temp Pulse Resp BP Pulse Ox 01/09/17 12:03 97.0 F 114 16 145/85 98 - Laboratory Lab Results: Lab Results 01/09/17 01/09/17 01/09/17 Range/Units 12:23 12:23 12:23 WBC 8.1 (3.5-10.8) 10^3/ul RBC 4.63 (4.0-5.4) 10^6/ul Hgb 15.1 (12.0-16.0) g/dl Hct 43 (35-47) % MCV 94 (80-97) fL MCH 33 H (27-31) pg MCHC 35 (31-36) g/dl RDW 13 (10.5-15) % Plt Count 225 (150-450) 10^3/ul MPV 9 (7.4-10.4) um3 Neut % (Auto) 67.6 (38-83) % Lymph % (Auto) 21.0 L (25-47) % [place] % (Auto) 9.2 H (1-9) % Eos % (Auto) 1.5 (0-6) % Baso % (Auto) 0.7 (0-2) % Absolute Neuts (auto) 5.4 (1.5-7.7) 10^3/ul Absolute Lymphs (auto) 1.7 (1.0-4.8) 10^3/ul Absolute Monos (auto) 0.7 (0-0.8) 10^3/ul Absolute Eos (auto) 0.1 (0-0.6) 10^3/ul Absolute Basos (auto) 0.1 (0-0.2) 10^3/ul Absolute Nucleated RBC 0.01 10^3/ul Nucleated RBC % 0.1 INR (Anticoag Therapy) 2.62 H (0.89-1.11) Sodium 125 L (133-145) mmol/L Potassium 4.1 (3.5-5.0) mmol/L Chloride 94 L (101-111) mmol/L Carbon Dioxide 23 (22-32) mmol/L Anion Gap 8 (2-11) mmol/L BUN 16 (6-24) mg/dL Creatinine 0.68 (0.51-0.95) mg/dL Est GFR ( Amer) 106.3 (>60) Est GFR (Non-Af Amer) 82.6 (>60) BUN/Creatinine Ratio 23.5 H (8-20) Glucose 118 H (70-100) mg/dL Lactic Acid (0.5-2.0) mmol/L Calcium 9.4 (8.6-10.3) mg/dL Magnesium 1.8 L (1.9-2.7) mg/dL Total Bilirubin 0.70 (0.2-1.0) mg/dL AST 20 (13-39) U/L ALT 14 (7-52) U/L Alkaline Phosphatase 71 (34-104) U/L Troponin I 0.00 (<0.04) ng/mL B-Natriuretic Peptide ( - 100) pg/mL Total Protein 7.5 (6.4-8.9) g/dL Albumin 4.2 (3.2-5.2) g/dL Globulin 3.3 (2-4) g/dL Albumin/Globulin Ratio 1.3 (1-3) TSH (0.34-5.60) mcIU/mL 01/09/17 01/09/17 01/09/17 Range/Units 12:23 12:23 12:23 WBC (3.5-10.8) 10^3/ul RBC (4.0-5.4) 10^6/ul Hgb (12.0-16.0) g/dl Hct (35-47) % MCV (80-97) fL MCH (27-31) pg MCHC (31-36) g/dl RDW (10.5-15) % Plt Count (150-450) 10^3/ul MPV (7.4-10.4) um3 Neut % (Auto) (38-83) % Lymph % (Auto) (25-47) % [place] % (Auto) (1-9) % Eos % (Auto) (0-6) % Baso % (Auto) (0-2) % Absolute Neuts (auto) (1.5-7.7) 10^3/ul Absolute Lymphs (auto) (1.0-4.8) 10^3/ul Absolute Monos (auto) (0-0.8) 10^3/ul Absolute Eos (auto) (0-0.6) 10^3/ul Absolute Basos (auto) (0-0.2) 10^3/ul Absolute Nucleated RBC 10^3/ul Nucleated RBC % INR (Anticoag Therapy) (0.89-1.11) Sodium (133-145) mmol/L Potassium (3.5-5.0) mmol/L Chloride (101-111) mmol/L Carbon Dioxide (22-32) mmol/L Anion Gap (2-11) mmol/L BUN (6-24) mg/dL Creatinine (0.51-0.95) mg/dL Est GFR ( Amer) (>60) Est GFR (Non-Af Amer) (>60) BUN/Creatinine Ratio (8-20) Glucose (70-100) mg/dL Lactic Acid 1.4 (0.5-2.0) mmol/L Calcium (8.6-10.3) mg/dL Magnesium (1.9-2.7) mg/dL Total Bilirubin (0.2-1.0) mg/dL AST (13-39) U/L ALT (7-52) U/L Alkaline Phosphatase (34-104) U/L Troponin I (<0.04) ng/mL B-Natriuretic Peptide 148 H ( - 100) pg/mL Total Protein (6.4-8.9) g/dL Albumin (3.2-5.2) g/dL Globulin (2-4) g/dL Albumin/Globulin Ratio (1-3) TSH 1.98 (0.34-5.60) mcIU/mL Result Diagrams: 01/09/17 12:23 01/09/17 12:23 Lab Statement: Any lab studies that have been ordered have been reviewed, and results considered in the medical decision making process. - EKG 1248.. Cardiac Rate: NL - 87bpm EKG Rhythm: Atrial Fibrillation EKG Interpretation: left axis deviation Re-Evaluation - Re-Evaluation First Eval Re-Evaluation Time: 15:05 Comment: Reviewed pt's labs and imaging reports with the pt. Course/Dx - Course Course Of Treatment: Consulted Dr. Venegas (Cardiology) at 1501 hour regarding pt' s case. Ms. Santiago felt SOB at home which was improved somewhat on arrival. She was found to be in. A-fib with a controlled rate and may have been going faster at home. She has been cardioverted once and was under the impression that she is not usually in it. Dr. Venegas reported that she had a holter that showed her in it the whole time. He recommended F/U with Dr. Arreaga. She felt fine at D/C. - Diagnoses Provider Diagnoses: A-fib Discharge - Discharge Plan Condition: Good Disposition: HOME Patient Education Materials: Dyspnea (ED) Referrals: Shirley Arreaga MD [Medical Doctor] - 1 Day (Follow up with Dr. Arreaga in 1-2 days. ) Aurora Feliciano MD [Primary Care Provider] - The documentation as recorded by the Vince morillo Benjamin accurately reflects the service I personally performed and the decisions made by me, Florencio Amezcua MD.
== END 2017-01-09 15:41 | disposition home or self-care (01) ==
LOC: ED 11:59
DX: I48.91 Unspecified atrial fibrillation (principal); Z79.01 Long term (current) use of anticoagulants; R06.02 Shortness of breath; I25.10 Atherosclerotic heart disease of native coronary artery without angina pectoris; I10 Essential (primary) hypertension; E78.00 Pure hypercholesterolemia, unspecified; F41.9 Anxiety disorder, unspecified; F32.9 Major depressive disorder, single episode, unspecified; Z88.5 Allergy status to narcotic agent; Z87.891 Personal history of nicotine dependence
CPT/HCPCS: 36415; 71010; 80053; 83605; 83735; 83880; 84443; 84484; 85025; 85610; 93005; 99283

== ENCOUNTER 2017-05-03 08:42 | Inpatient (IN) | payer OTHER, MEDICARE ==
[2017-05-03 09:26] LABS: ABS Basophils 0.1 10^3/ul (0-0.2); ABS Eosinophils 0 10^3/ul (0-0.6); ABS Lymphocytes 1.2 10^3/ul (1.0-4.8); ABS Monocytes 0.7 10^3/ul (0-0.8); ABS Neutrophils 9.4 10^3/ul (1.5-7.7); ABS Nucleated RBC 0 10^3/ul; Eosinophil % 0.1 % (0-6); Hematocrit 44 % (35-47); Hemoglobin 15.1 g/dl (12.0-16.0); Lymphocyte % 10.1 % (25-47); Mean Corpuscular HGB Conc 34 g/dl (31-36); Mean Corpuscular Hemoglobin 32 pg (27-31); Mean Corpuscular Volume 94 fL (80-97); Mean Platelet Volume 9 um3 (7.4-10.4); Nucleated Red Blood Cells % 0; Platelet Count 181 10^3/ul (150-450); Red Cell Distribution Width 13 % (10.5-15); White Blood Count 11.4 10^3/ul (3.5-10.8)
[2017-05-03 09:41] LABS: EGFR Non-African American 105.6 (>60)
[2017-05-03 09:53] LABS: INR 2.29 (0.77-1.02)
--- NOTE | 2017-05-03 09:55 | RAD ---
INDICATION: Right hip injury. COMPARISON: Comparison is made with a prior study from May 10, 2012. TECHNIQUE: An AP view of the pelvis and frontal and lateral views of the right hip were obtained. FINDINGS: The bones are in normal alignment. No fracture is seen. Joint spaces appear maintained. IMPRESSION: NO EVIDENCE FOR FRACTURE, IF THE PATIENT'S SYMPTOMS PERSIST RECOMMEND FOLLOW-UP IMAGING.
--- NOTE | 2017-05-03 10:35 | RAD ---
INDICATION: Status post fall, right hip pain. COMPARISON: Comparison is made with a prior x-ray study of the right hip from May 03, 2017. TECHNIQUE: Contiguous axial sections were obtained through the pelvis without intravenous or oral contrast. Images were reconstructed in the coronal and sagittal planes. FINDINGS: The bones appear osteopenic. There are nondisplaced fractures of the proximal and distal right superior pubic ramus and also inferior pubic ramus. No additional fractures are seen. There is focal soft tissue swelling in the right obturator internus muscle most consistent with a small hematoma. On the sagittal images note is made of grade 2 anterior spondylolisthesis at the L5-S1 level. No fracture is seen. There is increased density in the dependent portion of the gallbladder which is partially visualized on this study consistent with gallstones. The visualized portion of the small bowel colon appear nondistended. There is moderate to severe sigmoid diverticulosis without evidence for diverticulitis. No free intraperitoneal air or fluid is seen. IMPRESSION: 1. NONDISPLACED FRACTURES OF THE RIGHT SUPERIOR AND INFERIOR PUBIC RAMI. 2. SMALL HEMATOMA IN THE RIGHT OBTURATOR INTERNUS MUSCLE. 3. GRADE 2 ANTERIOR SPONDYLOLISTHESIS AT THE L5-S1 LEVEL. 4. CHOLELITHIASIS.
[2017-05-03 13:14] LABS: Urine Appearance Clear; Urine Blood Negative (Negative); Urine Color Yellow; Urine Ketones Negative (Negative); Urine Protein 2+(100 mg/dL) (Negative); Urine Specific Gravity 1.024 (1.010-1.030); Urine Urobilinogen Negative (Negative)
[2017-05-03] MEDS ORDERED: Acetaminophen TAB* 325 MG PO PRN (13:21)
[2017-05-03] MEDS ORDERED: Dextrose 50% Syringe 50 ML* 25 GM/50 ML SYRINGE IV PUSH PRN (13:54)
[2017-05-03] MEDS ORDERED: traMADol TAB* 50 MG PO PRN (16:52)
--- NOTE | 2017-05-03 17:38 | ED ---
Catherine Nava Nilda, scribed for Lonnie Romero MD on 05/03/17 at 0910 . Lower Extremity - HPI Summary HPI Summary: This patient is an 81 year old F BIBA with a chief complaint of constant pain in right hip s/p mechanical fall last night. She states she slipped or tripped while walking at home and fell forward. The patient rates the pain 9/10 in severity. Symptoms aggravated by movement and alleviated by rest. Patient reports decreased ambulation secondary to pain. - History of Current Complaint Chief Complaint: EDExtremityLower Stated Complaint: GROIN/BUTT PAIN Time Seen by Provider: 05/03/17 08:53 Hx Obtained From: Patient Mechanism Of Injury: Fall From A Standing Position Onset of Pain: Immediate Onset/Duration: Still Present Severity Currently: Severe Pain Intensity: 9 Pain Scale Used: 0-10 Numeric Timing: Constant Location: Is Discrete @ - right hip Associated Signs And Symptoms: Positive: Other - decreased ambulation Aggravating Factor(s): Movement Alleviating Factor(s): Rest - Allergies/Home Medications Allergies/Adverse Reactions: Allergies Allergy/AdvReac Type Severity Reaction Status Date / Time MS Codeine [Codeine] Allergy Unknown Verified 01/09/17 12:05 Reaction Details MS Morphine [Morphine] Allergy Unknown Verified 01/09/17 12:05 Reaction Details Home Medications: Home Medications Acetaminophen [Acetaminophen Extra Strength] 500 - 1,000 mg PO BID PRN 05/03/17 [History Confirmed 05/03/17] PMH/Surg Hx/FS Hx/Imm Hx Endocrine/Hematology History: Reports: Hx Anticoagulant Therapy - plavix, coumadin Denies: Hx Diabetes Cardiovascular History: Reports: Hx Atrial Fibrillation, Hx Coronary Artery Disease, Hx Hypercholesterolemia, Hx Hypertension, Hx Valvular Heart Disease, Other Cardiovascular Problems/Disorders - AORTIC VALVE REPAIR 2009 Denies: Hx Pacemaker/ICD Respiratory History: Reports: Hx Pneumonia Denies: Hx Asthma Musculoskeletal History: Reports: Hx Arthritis Denies: Hx Osteoporosis Sensory History: Reports: Hx Contacts or Glasses Opthamlomology History: Reports: Hx Contacts or Glasses Psychiatric History: Reports: Hx Anxiety, Hx Depression Denies: Hx Panic Disorder - Cancer History Hx Chemotherapy: No Hx Radiation Therapy: No - Surgical History Surgery Procedure, Year, and Place: AORTIC VALVE REPLACED, STENT 2009. Tonsilectomy - Immunization History Date of Tetanus Vaccine: Unk Date of Influenza Vaccine: Fall 2014 Infectious Disease History: No Infectious Disease History: Denies: Traveled Outside the [place] in Last 30 Days - Family History Known Family History: Positive: None - reviewed & noncontributory, Hypertension Negative: Diabetes Family History: No FHx breast cancer - Social History Alcohol Use: None Hx Substance Use: No Substance Use Type: Reports: None Hx Tobacco Use: Yes Smoking Status (MU): Former Smoker Review of Systems Positive: Other - mechanical fall Negative: Shortness Of Breath Positive: Other - right hip pain; decreased ambulation All Other Systems Reviewed And Are Negative: Yes Physical Exam - Summary Physical Exam Summary: VITAL SIGNS: Reviewed. GENERAL: Patient is a well-developed and nourished female who is lying comfortable in the stretcher. Patient is not in any acute respiratory distress. HEAD AND FACE: No signs of trauma. No ecchymosis, hematomas or skull depressions. No sinus tenderness. EYES: PERRLA, EOMI x 2, No injected conjunctiva, no nystagmus. EARS: Hearing grossly intact. Ear canals and tympanic membranes are within normal limits. MOUTH: Oropharynx within normal limits. NECK: Supple, trachea is midline, no adenopathy, no JVD, no carotid bruit, no c- spine tenderness, neck with full ROM. CHEST: Symmetric, no tenderness at palpation LUNGS: Clear to auscultation bilaterally. No wheezing or crackles. CVS: Regular rate and rhythm, S1 and S2 present, no murmurs or gallops appreciated. ABDOMEN: Soft, non-tender. No signs of distention. No rebound no guarding, and no masses palpated. Bowel sounds are normal. EXTREMITIES: Decreased ROM in right hip secondary to pain, no ecchymosis, no hematomas, and no deformities NEURO: Alert and oriented x 3. No acute neurological deficits. Speech is normal and follows commands. SKIN: Dry and warm Triage Information Reviewed: Yes Vital Signs On Initial Exam: Initial Vitals Temp Pulse Resp BP Pulse Ox 98.8 F 70 18 146/94 96 05/03/17 08:53 05/03/17 08:53 05/03/17 08:53 05/03/17 08:53 05/03/17 08:53 Vital Signs Reviewed: Yes Diagnostics - Vital Signs Vital Signs Temp Pulse Resp BP Pulse Ox 05/03/17 09:00 61 95 05/03/17 08:55 93 94 05/03/17 08:53 98.8 F 70 18 146/94 96 - Laboratory Result Diagrams: 05/03/17 09:17 05/03/17 09:17 Lab Statement: Any lab studies that have been ordered have been reviewed, and results considered in the medical decision making process. - Radiology Hip XR Radiology Interpretation Completed By: Radiologist - Hip XR, per radiologist, reveals NO EVIDENCE FOR FRACTURE, IF THE PATIENT'S SYMPTOMS PERSIST RECOMMEND FOLLOW-UP IMAGING. Dr. Romero has reviewed this radiology report. - CT Pelvis CT Interpretation Completed By: Radiologist - Pelvis CT, per radiologist, reveals 1. NONDISPLACED FRACTURES OF THE RIGHT SUPERIOR AND INFERIOR PUBIC RAMI. 2. SMALL HEMATOMA IN THE RIGHT OBTURATOR INTERNUS MUSCLE. 3. GRADE 2 ANTERIOR SPONDYLOLISTHESIS AT THE L5-S1 LEVEL. 4. CHOLEL[address]ASIS. Dr. Romero has reviewed this report. - EKG 945 Cardiac Rate: Other Rate EKG Rhythm: Atrial Fibrillation - 108 bpm EKG Interpretation: no ST elevation Lower Extremity Course/Dx - Course Assessment/Plan: This patient is an 81 year old F BIBA with a chief complaint of constant pain in right hip s/p mechanical fall last night. She states she slipped or tripped while walking at home and fell forward. The patient rates the pain 9/10 in severity. Symptoms aggravated by movement and alleviated by rest. Patient reports decreased ambulation secondary to pain. Test results are without significant abnormalities except for INR 2.29 WBC 11.4, Sodium 124, significant for acute hyponatremia, Gluc 218, and CRP 11.6. An EKG reveals Afib 108 bpm, no st elevation. I reviewed EKG with Dr. Cristina (cardiology) who agrees that this is not ST elevation and acute [place]. Hip XR, per radiologist, reveals NO EVIDENCE FOR FRACTURE, IF THE PATIENT'S SYMPTOMS PERSIST RECOMMEND FOLLOW-UP IMAGING. Dr. Romero has reviewed this radiology report. Since the XR did not show and fracture or dislocations I decided to do CT of the pelvis which showed a superior and inferior Ramus fracture, likely the cause of the pain. The pt has a lot of difficulty ambulating since she lives alone. Since the pt is hyponatremic I discussed the findings and tests results with Dr. Berumen (hospitalist) who accepts the pt. - Diagnoses Provider Diagnoses: Fracture of inferior pubic ramus, Fracture of superior ramus of pubis, Hyponatremia - Physician Notifications Discussed Care Of Patient With: Amita Cristina - Cardiology Time Discussed With Above Provider: 10:02 Instructed by Provider To: Other - Reviewed EKG with Dr. Cristina and agrees that this is not ST elevation and acute [place]. Discharge - Discharge Plan Condition: Stable Disposition: ADMITTED TO [facility] Referrals: Aurora Feliciano MD [Primary Care Provider] - The documentation as recorded by the Catherine morillo Nilda accurately reflects the service I personally performed and the decisions made by Nick mace Walter, MD.
[2017-05-03] MEDS ORDERED: Diltiazem CD CAP* 120 MG PO SCH (18:00)
[2017-05-03] MEDS: Warfarin TAB(*) 5 MG PO SCH (18:08)
[2017-05-03] MEDS: Atorvastatin* 20 MG TAB PO SCH (18:08)
[2017-05-03] MEDS: Insulin LISPRO* 1 UNITS UNIT SUBCUT SCH ×2 (18:08→21:52)
[2017-05-03] MEDS: Citalopram TAB* 20 MG PO SCH (18:08)
--- NOTE | 2017-05-03 18:39 | HP ---
CC: Dr. Feliciano * HISTORY AND PHYSICAL: DATE OF ADMISSION: 05/03/17 TIME OF ADMISSION: 1:30 p.m. CHIEF COMPLAINT: Fall. HISTORY OF PRESENT ILLNESS: This is an 81-year-old female with history of paroxysmal AFib and hypertension, who presents from home after a fall last night. She was walking into the living room from her kitchen with a cup of ice tea when she fell and landed on her right shoulder and hit. She did not lose consciousness and recalls the events clearly but is not sure if she tripped on the rug or why she fell. She did not hit her head. She had no chest pain, palpitations, light headedness, or shortness of breath prior to the fall. After the fall, she complained of pain in her right groin and back, though she slept on a recliner last night and this morning continued to have pain, so she came to the emergency department. In the ED, she is found to have a nondisplaced fracture of the superior and inferior pubic rami, so she is being admitted to the hospitalist service. PAST MEDICAL HISTORY: 1. Paroxysmal AFib, on anticoagulation. 2. Hypertension. 3. Aortic valve replacement with the bovine valve secondary to aortic stenosis. 4. CAD. 5. Anxiety. 6. KAVON, on CPAP. 7. Lumbar spinal stenosis. 8. Vitamin D deficiency. 9. Hyponatremia chronically. ALLERGIES: No known drug allergies. SOCIAL HISTORY: She does not smoke, drink, or use drugs. 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 REVIEW OF SYSTEMS: Denies loss of consciousness, lightheadedness, dizziness, shortness of breath, dyspnea on exertion, orthopnea. PHYSICAL EXAMINATION GENERAL: Alert, well-appearing female, in no distress. She does appear to have some short-term memory loss, however, is oriented x3. VITAL SIGNS: Blood pressure of 144/113, heart rate 111, respirations 20, pulse ox 96% on room air, temperature 98.8. HEENT: Pupils are 3 mm bilaterally and reactive to light. Moist mucosa. She does have facial symmetry. NECK: No JVP. No cervical adenopathy. LUNGS: Clear bilaterally. CHEST: Regular rate and rhythm with a systolic murmur at the right upper sternal border. Her sternotomy incision is well healed. ABDOMEN: Soft, nontender, nondistended. Liver is nonpalpable. She has some tenderness to palpation over the right greater trochanter, but she is able to flex her hip and internally and externally rotate it with pain. EXTREMITIES: No edema. Distal pulses are 2+ bilaterally. Strength is 5+ in the left lower extremity, 4+ in the right lower extremity. DIAGNOSTIC STUDIES/LAB DATA: White blood cells 11.4, hemoglobin 15.1, platelets 181. Sodium 124, potassium 3.5, chloride 91, bicarb 24, BUN 12, creatinine 0.55, glucose 218. INR 2.3. Lactic acid 2.3. EKG: AFib, 108, with left axis deviation. Imaging: Pelvis CT shows a nondisplaced fracture of the right superior and inferior pubic rami with a small hematoma in the right obturator internus muscle and a grade 2 anterior spondylolisthesis, L5 to S1. ASSESSMENT AND PLAN: This is an 81-year-old female with history of paroxysmal atrial fibrillation, hypertension, and obstructive sleep apnea, who presents after a fall last night. 1. Mechanical fall. It does not sound like there is a cardiac component to this fall, still I will monitor on telemetry overnight and check one more troponin. I suspect this was mechanical fall, so I am consulting PT and OT. I will also check orthostatic. She has no neurologic findings; however, I have the low threshold to CT her head given her therapeutic anticoagulation. 2. Nondisplaced superior and inferior pubic rami fractures and small hematoma in the obturator internus muscle. I have discussed this case with Orthopedic Surgery. I will put in a separate consult, she will likely needed nonoperative conservative management. 3. Hypertension. Her diastolic blood pressure is poorly controlled at this time. I suspect this is secondary to pain. I am continuing her home medication of diltiazem. 4. Atrial fibrillation. Rate control with diltiazem and anticoagulate with warfarin. Her hemoglobin is 15.1, so at this point, I am not concerned about bleeding; however, this should be kept in mind given her fall. Continue warfarin 5 mg daily as she is therapeutic, her INR goal is 2 to 3. 5. Coronary artery disease. I do not have the cath report for her; however, this is part of her history as recorded in the record. She is on aspirin and statin but not a beta vesta. 6. Anxiety. Continue Lexapro. 7. Obstructive sleep apnea. Continue CPAP. 8. Disposition. Admit to observation with the PT consult and Ortho consult. 9. Diet. Unrestricted. 10. Activity. Pending Ortho and PT evaluation. [id number]/[facility] #: [id number] MICHAEL
[2017-05-03] MEDS ORDERED: LORazepam INJ* 2 MG/ML 1 ML VIAL IV ONE (20:58)
[2017-05-03] MEDS ORDERED: Diltiazem IV* 5 MG/ML 5 ML VIAL (for loading dose/IV Push) (25 MG) IV SLOW PU ONE (20:59)
[2017-05-03] MEDS ORDERED: Ondansetron INJ* 2 MG/ML VIAL IV PRN (21:00)
[2017-05-03] MEDS ORDERED: LORazepam INJ* 2 MG/ML 1 ML VIAL ONE (21:22)
[2017-05-04 05:11] LABS: ABS Basophils 0.1 10^3/ul (0-0.2); ABS Eosinophils 0 10^3/ul (0-0.6); ABS Lymphocytes 0.9 10^3/ul (1.0-4.8); ABS Monocytes 0.5 10^3/ul (0-0.8); ABS Neutrophils 8.6 10^3/ul (1.5-7.7); ABS Nucleated RBC 0 10^3/ul; Eosinophil % 0.1 % (0-6); Hematocrit 45 % (35-47); Hemoglobin 15.5 g/dl (12.0-16.0); Lymphocyte % 8.7 % (25-47); Mean Corpuscular HGB Conc 35 g/dl (31-36); Mean Corpuscular Hemoglobin 33 pg (27-31); Mean Corpuscular Volume 95 fL (80-97); Mean Platelet Volume 9 um3 (7.4-10.4); Nucleated Red Blood Cells % 0; Platelet Count 165 10^3/ul (150-450); Red Blood Count 4.73 10^6/ul (4.0-5.4); Red Cell Distribution Width 13 % (10.5-15); White Blood Count 10.1 10^3/ul (3.5-10.8)
[2017-05-04 05:43] LABS: EGFR Non-African American 101.3 (>60)
[2017-05-04] MEDS: Cyanocobalamin TAB* 500 MCG PO SCH (08:44)
[2017-05-04] MEDS: Aspirin EC Low Dose* 81 MG TAB.EC PO SCH (08:44)
[2017-05-04] MEDS: Insulin LISPRO* 1 UNITS UNIT SUBCUT SCH ×4 (08:44→22:00)
[2017-05-04] MEDS: Cholecalciferol TAB* 1000 UNITS PO SCH (08:44)
[2017-05-04] MEDS ORDERED: Diltiazem CD CAP* 180 MG PO SCH (10:23)
--- NOTE | 2017-05-04 10:39 | PN ---
Subjective Date of Service: 05/04/17 Interval History: Little pain at rest, much pain with movement. She has not been out of bed since admission. Objective Active Medications: Acetaminophen (Tylenol Tab*) 650 mg PO Q4H PRN PRN Reason: FEVER/PAIN Aspirin (Aspirin Ec Low Dose*) 81 mg PO QAM [facility] Last Admin: 05/04/17 08:44 Dose: 81 mg Atorvastatin Calcium (Lipitor*) 20 mg PO QPM [facility] Last Admin: 05/03/17 18:08 Dose: 20 mg Cholecalciferol (Vitamin D Tab*) 1,000 units PO QAM [facility] Last Admin: 05/04/17 08:44 Dose: 1,000 units Citalopram Hydrobromide (Celexa Tab*) 20 mg PO QPM [facility] Last Admin: 05/03/17 18:08 Dose: 20 mg Cyanocobalamin (Vitamin B12 Tab*) 500 mcg PO DAILY [facility] Last Admin: 05/04/17 08:44 Dose: 500 mcg Dextrose (D50w Syringe 50 Ml*) 12.5 gm IV PUSH .FOR FS < 60 - SS PRN PRN Reason: FS < 60 Diltiazem HCl (Cardizem Cd Cap*) 180 mg PO QPM [facility] Insulin Human Lispro (Humalog*) 0 units SUBCUT ACHS [facility] PRN Reason: Protocol Last Admin: 05/04/17 08:44 Dose: 2 units Ondansetron HCl (Zofran Inj*) 4 mg IV Q6H PRN PRN Reason: NAUSEA Tramadol HCl (Ultram*) 50 mg PO Q6H PRN PRN Reason: PAIN Last Admin: 05/03/17 18:18 Dose: 50 mg Warfarin Sodium (Coumadin Tab(*)) 5 mg PO DAILY@1700 [facility] PRN Reason: Protocol Last Admin: 05/03/17 18:08 Dose: 5 mg Vital Signs - 8 hr 05/04/17 05/04/17 05/04/17 03:28 07:24 07:45 Temperature 97.6 F 98.5 F Pulse Rate 106 126 Respiratory 18 20 20 Rate Blood Pressure 151/114 145/91 (mmHg) O2 Sat by Pulse 93 93 Oximetry Oxygen Devices in Use Now: None Appearance: Alert, partly up in bed. In fair spirits. Looks comfortable. Eyes: No Scleral Icterus Neck: NL Appearance and Movements; NL JVP, No Thyroid Enlargement, Masses Respiratory: Symmetrical Chest Expansion and Respiratory Effort, Clear to Auscultation, Clear to Percussion Cardiovascular: NL Sounds; No Murmurs; No JVD, RRR, No Edema, - Extremities: No Edema, No Clubbing, Cyanosis, - Skin: No Rash or Ulcers, No Nodules or Sclerosis, - Neurological: Alert and Oriented x 3, NL Sensation Result Diagrams: 05/04/17 04:56 05/04/17 04:56 Assess/Plan/Problems-Billing Assessment: - Patient Problems (1) Pelvic fracture Current Visit: Yes Status: Acute Code(s): S32.9XXA - FRACTURE OF UNSP PARTS OF LUMBOSACRAL SPINE AND PELVIS, INIT SNOMED Code(s): 07728096 Comment: APAP scheduled ordered. PT. Will need MEME. (2) Atrial fibrillation Current Visit: No Status: Acute Code(s): I48.91 - UNSPECIFIED ATRIAL FIBRILLATION SNOMED Code(s): 72505030 Comment: Continue warfarin, increase diltiazem dose, start 05/04 11 AM. (3) Sleep apnea Current Visit: Yes Status: Acute Code(s): G47.30 - SLEEP APNEA, UNSPECIFIED SNOMED Code(s): 57593718 Comment: Patient has her CPAP here. (4) HTN (hypertension) Current Visit: Yes Status: Acute Code(s): I10 - ESSENTIAL (PRIMARY) HYPERTENSION SNOMED Code(s): 26124300 Comment: Diltiazem as above. (5) CAD (coronary artery disease) Current Visit: Yes Status: Acute Code(s): I25.10 - ATHSCL HEART DISEASE OF [place] CORONARY ARTERY W/O ANG PCTRS SNOMED Code(s): 38604601 Comment: Continue ASA, statin.
[2017-05-04] MEDS: Diltiazem CD CAP* 180 MG PO SCH (10:53)
[2017-05-04] MEDS: Acetaminophen TAB* 325 MG PO SCH ×3 (12:11→20:02)
[2017-05-04] MEDS: Atorvastatin* 20 MG TAB PO SCH (17:23)
[2017-05-04] MEDS: Warfarin TAB(*) 5 MG PO SCH (17:23)
[2017-05-04] MEDS: Citalopram TAB* 20 MG PO SCH (17:23)
--- NOTE | 2017-05-04 21:00 | CONS ---
CONSULTATION REPORT: DATE OF CONSULT: 05/04/17 PROVIDER: Beau Corcoran MD CHIEF COMPLAINT: Fall with right hip pain. HISTORY OF PRESENT ILLNESS: Aurora Santiago is an 81-year-old female who [place] [facility] with a chief complaint of right hip pain after a fall on 05/03/17. Her past medical history includes AFib, hypertension, aortic valve replacement, coronary artery disease, anxiety, KAVON, lumbar spinal stenosis, hyponatremia chronically and vitamin D deficiency. Fall occurred when she was walking around her house to get a drink, she fell. She is not sure if it was a mechanical fall, if she tripped over something, but she landed on the ground. She did not lose consciousness. She does not believe that she hit her head. She denied any chest pain, palpitations, lightheadedness, dizziness prior to the fall. After the fall, she did not come immediately to the emergency room. She was able to sleep in a chair for a period of time and decided upon waking that she would come to the emergency room. In the emergency room, she was found to have nondisplaced fractures of the right superior and inferior pubic rami and she was therefore, admitted under the hospitalist service. The patient states that initially she had 10/10 pain, especially with walking, which is now decreased to 4 to 5/10 pain. Pain is localized to the right groin , hip, and right lower back. She does not have any numbness or tingling into the right lower extremity. She is hesitant to move at her right hip due to pain. She is accompanied today by her , Arleth. The patient is stated to be quite forgetful and Arleth desires to be called should any new information or decisions for further care be made. PAST MEDICAL HISTORY: Includes; 1. Atrial fibrillation, on anticoagulation. Her oil operator is located in [place], the patient is unsure of name. 2. Hypertension. 3. 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 4. Coronary artery disease. 5. Anxiety. 6. Obstructive sleep apnea, on CPAP. 7. Lumbar spinal stenosis. 8. Vitamin D deficiency. 9. Hyponatremia which is chronic in nature. SOCIAL HISTORY: The patient does not drink, smoke or use drugs. She lives at home with her , Arleth. REVIEW OF SYSTEMS: General: The patient denies any fever, chills, lightheadedness or dizziness. Head: Denies any current headache. Unsure if she hit her head when she fell. Eyes: No changes in vision. Ears: Hard of hearing at baseline. Cardio: No chest pain, no shortness of breath. No irregular beats. Respiratory: No shortness of breath, no cough. Abdomen: No diarrhea or constipation. No abdominal pain. Musculoskeletal: Right hip and groin pain. Neuro: No numbness or tingling into the right lower extremity. PHYSICAL EXAM: General: Well appearing, in no acute distress. The patient carries on an appropriate conversation, though she reportedly does have some difficulty with memory. Vital Signs: Temperature 98.7, pulse 121, respiratory rate 20, oxygen saturation 95, blood pressure 156/108. HEENT: EOMI. Lungs: Clear to auscultation auscultation bilaterally. Heart: S1, S2. Abdomen: Bowel sounds normoactive, soft, nontender. Musculoskeletal: Right lower extremity: The patient is sitting in a chair. She has tenderness to palpation over the right groin, right hip and right lower back. She is very hesitant to flex or extend at the hip due to pain. She is less so, but still somewhat hesitant to flex or extend at the knee, but she does have full range of motion at the knee as well as at the ankle on the right side. Neuro: Dorsiflexion, plantar flexion intact. Sensation intact throughout the right lower extremity. 5/5 strength, bilateral dorsiflexion and plantar flexion of lower extremity. Vascular: Calves are soft, supple and nontender without palpable cords. Dorsalis pedis and posterior tibial pulses are 2+ bilaterally. DIAGNOSTIC STUDIES/LAB DATA: Hemoglobin 15.5, hematocrit 45, sodium 125, potassium 3.4, chloride 92, glucose 205. CT of pelvis, nondisplaced fracture of the right superior and inferior pubic rami. PLAN: The patient will remain weightbearing as tolerated. She will follow up in our outpatient clinic with Dr. Corcoran in roughly 10 days. Please call our office for any further concerns. GEE MARTIN [id number]/[facility] #: [id number] [facility] MEDICAL CENTERBernardo
[2017-05-05] MEDS: Diltiazem CD CAP* 180 MG PO SCH (08:05)
[2017-05-05] MEDS: Cyanocobalamin TAB* 500 MCG PO SCH (08:05)
[2017-05-05] MEDS: Cholecalciferol TAB* 1000 UNITS PO SCH (08:05)
[2017-05-05] MEDS: Aspirin EC Low Dose* 81 MG TAB.EC PO SCH (08:05)
[2017-05-05] MEDS: Acetaminophen TAB* 325 MG PO SCH ×4 (08:05→20:29)
[2017-05-05] MEDS: Insulin LISPRO* 1 UNITS UNIT SUBCUT SCH ×4 (08:06→20:52)
--- NOTE | 2017-05-05 15:39 | PN ---
Subjective Date of Service: 05/05/17 Interval History: No pain at rest. No new c/o. Objective Active Medications: Acetaminophen (Tylenol Tab*) 650 mg PO Q4H PRN PRN Reason: FEVER/PAIN Acetaminophen (Tylenol Tab*) 650 mg PO QID [facility] Last Admin: 05/05/17 13:21 Dose: 650 mg Aspirin (Aspirin Ec Low Dose*) 81 mg PO QAM [facility] Last Admin: 05/05/17 08:05 Dose: 81 mg Atorvastatin Calcium (Lipitor*) 20 mg PO QPM [facility] Last Admin: 05/04/17 17:23 Dose: 20 mg Cholecalciferol (Vitamin D Tab*) 1,000 units PO QAM [facility] Last Admin: 05/05/17 08:05 Dose: 1,000 units Citalopram Hydrobromide (Celexa Tab*) 20 mg PO QPM [facility] Last Admin: 05/04/17 17:23 Dose: 20 mg Cyanocobalamin (Vitamin B12 Tab*) 500 mcg PO DAILY [facility] Last Admin: 05/05/17 08:05 Dose: 500 mcg Dextrose (D50w Syringe 50 Ml*) 12.5 gm IV PUSH .FOR FS < 60 - SS PRN PRN Reason: FS < 60 Diltiazem HCl (Cardizem Cd Cap*) 180 mg PO DAILY [facility] Last Admin: 05/05/17 08:05 Dose: 180 mg Insulin Human Lispro (Humalog*) 0 units SUBCUT ACHS [facility] PRN Reason: Protocol Last Admin: 05/05/17 13:05 Dose: Not Given Lisinopril (Prinivil Tab*) 2.5 mg PO DAILY [facility] Ondansetron HCl (Zofran Inj*) 4 mg IV Q6H PRN PRN Reason: NAUSEA Tramadol HCl (Ultram*) 50 mg PO Q6H PRN PRN Reason: PAIN Last Admin: 05/03/17 18:18 Dose: 50 mg Warfarin Sodium (Coumadin Tab(*)) 5 mg PO DAILY@1700 [facility] PRN Reason: Protocol Last Admin: 05/04/17 17:23 Dose: 5 mg Vital Signs - 8 hr 05/05/17 12:14 Temperature 97.0 F Pulse Rate 129 Respiratory 20 Rate Blood Pressure 138/99 (mmHg) O2 Sat by Pulse 96 Oximetry Oxygen Devices in Use Now: None Appearance: Alert, in recliner chair with both legs elevated. In fair spirits, looks comfortable. Eyes: No Scleral Icterus Respiratory: Symmetrical Chest Expansion and Respiratory Effort, Clear to Auscultation, Clear to Percussion Cardiovascular: NL Sounds; No Murmurs; No JVD, RRR, No Edema, - Extremities: No Clubbing, Cyanosis, - - Tr edema BL Skin: No Rash or Ulcers, No Nodules or Sclerosis, - Neurological: Alert and Oriented x 3, NL Sensation, - - diminished hearing. Result Diagrams: 05/04/17 04:56 05/04/17 04:56 Assess/Plan/Problems-Billing Assessment: - Patient Problems (1) Pelvic fracture Current Visit: Yes Status: Acute Code(s): S32.9XXA - FRACTURE OF UNSP PARTS OF LUMBOSACRAL SPINE AND PELVIS, INIT SNOMED Code(s): 36389385 Comment: APAP scheduled ordered. PT. Will need MEME. (2) Atrial fibrillation Current Visit: No Status: Acute Code(s): I48.91 - UNSPECIFIED ATRIAL FIBRILLATION SNOMED Code(s): 90241389 Comment: Continue warfarin, diltiazem. INR 2/10. (3) Sleep apnea Current Visit: Yes Status: Acute Code(s): G47.30 - SLEEP APNEA, UNSPECIFIED SNOMED Code(s): 77040987 Comment: Patient has her CPAP here. (4) HTN (hypertension) Current Visit: Yes Status: Acute Code(s): I10 - ESSENTIAL (PRIMARY) HYPERTENSION SNOMED Code(s): 50144236 Comment: Add lisinopril 2.5 mg daily, start PM 2/9. (5) CAD (coronary artery disease) Current Visit: Yes Status: Acute Code(s): I25.10 - ATHSCL HEART DISEASE OF [place] CORONARY ARTERY W/O ANG PCTRS SNOMED Code(s): 70786002 Comment: Continue ASA, statin.
--- NOTE | 2017-05-05 15:42 | PN ---
Subjective Date of Service: 05/05/17 Interval History: ADDENDUM TO EARLIER NOTE TODAY Objective Active Medications: Acetaminophen (Tylenol Tab*) 650 mg PO Q4H PRN PRN Reason: FEVER/PAIN Acetaminophen (Tylenol Tab*) 650 mg PO QID [facility] Last Admin: 05/05/17 13:21 Dose: 650 mg Aspirin (Aspirin Ec Low Dose*) 81 mg PO QAM [facility] Last Admin: 05/05/17 08:05 Dose: 81 mg Atorvastatin Calcium (Lipitor*) 20 mg PO QPM [facility] Last Admin: 05/04/17 17:23 Dose: 20 mg Cholecalciferol (Vitamin D Tab*) 1,000 units PO QAM [facility] Last Admin: 05/05/17 08:05 Dose: 1,000 units Citalopram Hydrobromide (Celexa Tab*) 20 mg PO QPM [facility] Last Admin: 05/04/17 17:23 Dose: 20 mg Cyanocobalamin (Vitamin B12 Tab*) 500 mcg PO DAILY [facility] Last Admin: 05/05/17 08:05 Dose: 500 mcg Dextrose (D50w Syringe 50 Ml*) 12.5 gm IV PUSH .FOR FS < 60 - SS PRN PRN Reason: FS < 60 Diltiazem HCl (Cardizem Cd Cap*) 180 mg PO DAILY [facility] Last Admin: 05/05/17 08:05 Dose: 180 mg Insulin Human Lispro (Humalog*) 0 units SUBCUT ACHS [facility] PRN Reason: Protocol Last Admin: 05/05/17 13:05 Dose: Not Given Lisinopril (Prinivil Tab*) 2.5 mg PO DAILY [facility] Ondansetron HCl (Zofran Inj*) 4 mg IV Q6H PRN PRN Reason: NAUSEA Tramadol HCl (Ultram*) 50 mg PO Q6H PRN PRN Reason: PAIN Last Admin: 05/03/17 18:18 Dose: 50 mg Warfarin Sodium (Coumadin Tab(*)) 5 mg PO DAILY@1700 [facility] PRN Reason: Protocol Last Admin: 05/04/17 17:23 Dose: 5 mg Vital Signs - 8 hr 05/05/17 12:14 Temperature 97.0 F Pulse Rate 129 Respiratory 20 Rate Blood Pressure 138/99 (mmHg) O2 Sat by Pulse 96 Oximetry Oxygen Devices in Use Now: None Result Diagrams: 05/04/17 04:56 05/04/17 04:56 Assess/Plan/Problems-Billing Assessment: - Patient Problems (1) Pelvic fracture Current Visit: Yes Status: Acute Code(s): S32.9XXA - FRACTURE OF UNSP PARTS OF LUMBOSACRAL SPINE AND PELVIS, INIT SNOMED Code(s): 15696455 Comment: APAP scheduled ordered. PT. Will need MEME. (2) Atrial fibrillation Current Visit: No Status: Acute Code(s): I48.91 - UNSPECIFIED ATRIAL FIBRILLATION SNOMED Code(s): 20271315 Comment: Continue warfarin, diltiazem. INR 10. (3) Sleep apnea Current Visit: Yes Status: Acute Code(s): G47.30 - SLEEP APNEA, UNSPECIFIED SNOMED Code(s): 60869591 Comment: Patient has her CPAP here. (4) HTN (hypertension) Current Visit: Yes Status: Acute Code(s): I10 - ESSENTIAL (PRIMARY) HYPERTENSION SNOMED Code(s): 18900431 Comment: Add lisinopril 2.5 mg daily, start PM 05/05. (5) CAD (coronary artery disease) Current Visit: Yes Status: Acute Code(s): I25.10 - ATHSCL HEART DISEASE OF [place] CORONARY ARTERY W/O ANG PCTRS SNOMED Code(s): 56131883 Comment: Continue ASA, statin. (6) Diabetes Current Visit: Yes Status: Acute Code(s): E11.9 - TYPE 2 DIABETES MELLITUS WITHOUT COMPLICATIONS SNOMED Code(s): 83417060 Comment: Note A1C 7.3% on 02/25/17. Start glipizide 2.5 mg daily 05/05 PM. Continue Lispro by SS.
[2017-05-05] MEDS: Citalopram TAB* 20 MG PO SCH (18:13)
[2017-05-05] MEDS: Warfarin TAB(*) 5 MG PO SCH (18:14)
[2017-05-05] MEDS: Lisinopril TAB* 5 MG PO SCH (18:14)
[2017-05-05] MEDS: Atorvastatin* 20 MG TAB PO SCH (18:14)
[2017-05-05] MEDS: glipiZIDE TAB* 5 MG PO SCH (18:14)
[2017-05-06 05:27] LABS: INR 4.8 (0.77-1.02)
[2017-05-06 05:35] LABS: EGFR Non-African American 97.3 (>60)
[2017-05-06] MEDS: Acetaminophen TAB* 325 MG PO SCH ×4 (08:35→19:52)
[2017-05-06] MEDS: glipiZIDE TAB* 5 MG PO SCH ×2 (08:35→19:52)
[2017-05-06] MEDS: Cyanocobalamin TAB* 500 MCG PO SCH (08:35)
[2017-05-06] MEDS: Cholecalciferol TAB* 1000 UNITS PO SCH (08:35)
[2017-05-06] MEDS: Aspirin EC Low Dose* 81 MG TAB.EC PO SCH (08:35)
[2017-05-06] MEDS: Lisinopril TAB* 5 MG PO SCH (08:35)
[2017-05-06] MEDS: Diltiazem CD CAP* 180 MG PO SCH (08:35)
[2017-05-06] MEDS: Insulin LISPRO* 1 UNITS UNIT SUBCUT SCH ×2 (08:36→12:14)
[2017-05-06] MEDS ORDERED: Lisinopril TAB* 5 MG PO ONE (13:30)
--- NOTE | 2017-05-06 13:38 | PN ---
Subjective Date of Service: 05/06/17 Interval History: No c/o. Denies pain. She states her appetite is "better." Objective Active Medications: Acetaminophen (Tylenol Tab*) 650 mg PO Q4H PRN PRN Reason: FEVER/PAIN Acetaminophen (Tylenol Tab*) 650 mg PO QID [facility] Last Admin: 05/06/17 12:50 Dose: 650 mg Aspirin (Aspirin Ec Low Dose*) 81 mg PO QAM [facility] Last Admin: 05/06/17 08:35 Dose: 81 mg Atorvastatin Calcium (Lipitor*) 20 mg PO QPM [facility] Last Admin: 05/05/17 18:14 Dose: 20 mg Cholecalciferol (Vitamin D Tab*) 1,000 units PO QAM [facility] Last Admin: 05/06/17 08:35 Dose: 1,000 units Citalopram Hydrobromide (Celexa Tab*) 20 mg PO QPM [facility] Last Admin: 05/05/17 18:13 Dose: 20 mg Cyanocobalamin (Vitamin B12 Tab*) 500 mcg PO DAILY [facility] Last Admin: 05/06/17 08:35 Dose: 500 mcg Dextrose (D50w Syringe 50 Ml*) 12.5 gm IV PUSH .FOR FS < 60 - SS PRN PRN Reason: FS < 60 Diltiazem HCl (Cardizem Cd Cap*) 180 mg PO DAILY [facility] Last Admin: 05/06/17 08:35 Dose: 180 mg Glipizide (Glucotrol Tab*) 2.5 mg PO BID [facility] Lisinopril (Prinivil Tab*) 2.5 mg PO ONCE ONE Stop: 05/06/17 13:31 Lisinopril (Prinivil Tab*) 5 mg PO DAILY [facility] Ondansetron HCl (Zofran Inj*) 4 mg IV Q6H PRN PRN Reason: NAUSEA Tramadol HCl (Ultram*) 50 mg PO Q6H PRN PRN Reason: PAIN Last Admin: 05/03/17 18:18 Dose: 50 mg Vital Signs - 8 hr 05/06/17 05/06/17 07:05 07:33 Temperature 97.5 F Pulse Rate 106 Respiratory 20 20 Rate Blood Pressure 135/98 (mmHg) O2 Sat by Pulse 93 Oximetry Oxygen Devices in Use Now: None Appearance: Alert, in recliner chair with legs elevated. In good spirits. Looks comfortable. Eyes: No Scleral Icterus Extremities: No Edema, No Clubbing, Cyanosis, - Skin: No Rash or Ulcers, No Nodules or Sclerosis, - Neurological: Alert and Oriented x 3, NL Sensation Result Diagrams: 05/04/17 04:56 05/06/17 05:05 Assess/Plan/Problems-Billing Assessment: - Patient Problems (1) Pelvic fracture Current Visit: Yes Status: Acute Code(s): S32.9XXA - FRACTURE OF UNSP PARTS OF LUMBOSACRAL SPINE AND PELVIS, INIT SNOMED Code(s): 39271078 Comment: APAP scheduled ordered. PT. Will need MEME. (2) Atrial fibrillation Current Visit: No Status: Acute Code(s): I48.91 - UNSPECIFIED ATRIAL FIBRILLATION SNOMED Code(s): 46066342 Comment: INR 4.80 on 05/06. Warfarin d/c'd until INR < 3. INR ordered for . Continue diltiazem. (3) Sleep apnea Current Visit: Yes Status: Acute Code(s): G47.30 - SLEEP APNEA, UNSPECIFIED SNOMED Code(s): 87988006 Comment: Patient has her CPAP here. (4) HTN (hypertension) Current Visit: Yes Status: Acute Code(s): I10 - ESSENTIAL (PRIMARY) HYPERTENSION SNOMED Code(s): 44695061 Comment: Increase lisinopril to 5 mg daily, start 05/06 with catch-up dose of 2.5 mg. (5) CAD (coronary artery disease) Current Visit: Yes Status: Acute Code(s): I25.10 - ATHSCL HEART DISEASE OF [place] CORONARY ARTERY W/O ANG PCTRS SNOMED Code(s): 73190472 Comment: Continue ASA, statin. (6) Diabetes Current Visit: Yes Status: Acute Code(s): E11.9 - TYPE 2 DIABETES MELLITUS WITHOUT COMPLICATIONS SNOMED Code(s): 14213536 Comment: Note A1C 7.3% on 02/25/17. Increase glipizide to 2.5 mg bid 05/06. Stop Lispro.
[2017-05-06] MEDS: Citalopram TAB* 20 MG PO SCH (17:59)
[2017-05-06] MEDS: Atorvastatin* 20 MG TAB PO SCH (17:59)
[2017-05-07 06:12] LABS: INR 3.77 (0.77-1.02)
[2017-05-07] MEDS: Cyanocobalamin TAB* 500 MCG PO SCH (08:37)
[2017-05-07] MEDS: Cholecalciferol TAB* 1000 UNITS PO SCH (08:37)
[2017-05-07] MEDS: Aspirin EC Low Dose* 81 MG TAB.EC PO SCH (08:37)
[2017-05-07] MEDS: Acetaminophen TAB* 325 MG PO SCH ×4 (08:37→19:55)
[2017-05-07] MEDS: Lisinopril TAB* 5 MG PO SCH (08:37)
[2017-05-07] MEDS: glipiZIDE TAB* 5 MG PO SCH ×2 (08:38→19:55)
[2017-05-07] MEDS: Diltiazem CD CAP* 180 MG PO SCH (08:38)
--- NOTE | 2017-05-07 08:41 | PN ---
Subjective Date of Service: 05/07/17 Interval History: Pain well controlled Has no complaints Objective Active Medications: Acetaminophen (Tylenol Tab*) 650 mg PO Q4H PRN PRN Reason: FEVER/PAIN Acetaminophen (Tylenol Tab*) 650 mg PO QID [facility] Last Admin: 05/06/17 19:52 Dose: 650 mg Aspirin (Aspirin Ec Low Dose*) 81 mg PO QAM [facility] Last Admin: 05/06/17 08:35 Dose: 81 mg Atorvastatin Calcium (Lipitor*) 20 mg PO QPM [facility] Last Admin: 05/06/17 17:59 Dose: 20 mg Cholecalciferol (Vitamin D Tab*) 1,000 units PO QAM [facility] Last Admin: 05/06/17 08:35 Dose: 1,000 units Citalopram Hydrobromide (Celexa Tab*) 20 mg PO QPM [facility] Last Admin: 05/06/17 17:59 Dose: 20 mg Cyanocobalamin (Vitamin B12 Tab*) 500 mcg PO DAILY [facility] Last Admin: 05/06/17 08:35 Dose: 500 mcg Dextrose (D50w Syringe 50 Ml*) 12.5 gm IV PUSH .FOR FS < 60 - SS PRN PRN Reason: FS < 60 Diltiazem HCl (Cardizem Cd Cap*) 180 mg PO DAILY [facility] Last Admin: 05/06/17 08:35 Dose: 180 mg Glipizide (Glucotrol Tab*) 2.5 mg PO BID [facility] Last Admin: 05/06/17 19:52 Dose: 2.5 mg Lisinopril (Prinivil Tab*) 5 mg PO DAILY [facility] Ondansetron HCl (Zofran Inj*) 4 mg IV Q6H PRN PRN Reason: NAUSEA Tramadol HCl (Ultram*) 50 mg PO Q6H PRN PRN Reason: PAIN Last Admin: 05/03/17 18:18 Dose: 50 mg Vital Signs - 8 hr 05/07/17 05/07/17 03:13 07:31 Temperature 97.3 F 97.8 F Pulse Rate 106 54 Respiratory 18 20 Rate Blood Pressure 152/73 123/96 (mmHg) O2 Sat by Pulse 96 96 Oximetry Oxygen Devices in Use Now: None Appearance: sitting in chair, eating breakfast, NAD Eyes: No Scleral Icterus, PERRLA Ears/Nose/Mouth/Throat: Clear Oropharnyx, Mucous Membranes Moist Neck: NL Appearance and Movements; NL JVP, Trachea Midline Respiratory: Symmetrical Chest Expansion and Respiratory Effort, Clear to Auscultation Cardiovascular: - - IRIR, 2/6 JASMEET Abdominal: NL Sounds; No Tenderness; No Distention, No Hepatosplenomegaly Lymphatic: No Cervical Adenopathy Extremities: - - trace LE edema b/l Neurological: Alert and Oriented x 3, - - decreased hearing Result Diagrams: 05/04/17 04:56 05/06/17 05:05 Assess/Plan/Problems-Billing Assessment: 81 F pubic rami fractures after fall pending placement at [facility] - Patient Problems (1) Pelvic fracture Comment: Pubic rami APAP scheduled ordered. [employer] accepted pending insurance approval (2) Hyponatremia Comment: chronically low stable (3) Elevated INR Comment: Holding coumadin recheck tomorrow (4) Diabetes Comment: Noted A1C 7.3% on 02/25/17. glipizide Increased to 2.5 mg bid 05/06. Stopped Lispro. (5) HTN (hypertension) Comment: lisinopril Increased to 5 mg daily, started 05/06 (6) Sleep apnea Comment: Patient has her CPAP here. (7) DVT prophylaxis Comment: coumadin
[2017-05-07] MEDS: Citalopram TAB* 20 MG PO SCH (17:25)
[2017-05-07] MEDS: Atorvastatin* 20 MG TAB PO SCH (17:25)
[2017-05-08 05:15] LABS: INR 2.88 (0.77-1.02)
[2017-05-08] MEDS: Acetaminophen TAB* 325 MG PO SCH ×2 (10:23→13:23)
[2017-05-08] MEDS: Cholecalciferol TAB* 1000 UNITS PO SCH (10:24)
[2017-05-08] MEDS: Diltiazem CD CAP* 180 MG PO SCH (10:24)
[2017-05-08] MEDS: Lisinopril TAB* 5 MG PO SCH (10:24)
[2017-05-08] MEDS: Aspirin EC Low Dose* 81 MG TAB.EC PO SCH (10:25)
[2017-05-08] MEDS: Cyanocobalamin TAB* 500 MCG PO SCH (10:25)
[2017-05-08] MEDS: glipiZIDE TAB* 5 MG PO SCH (10:25)
--- NOTE | 2017-05-08 12:05 | PN ---
Subjective Date of Service: 05/08/17 Interval History: C/o right leg pain with movement, Denies chest pain or shortness of breath, Denies abd pain, N/V/D Family History: Unchanged from Admission Social History: Unchanged from Admission Past Medical History: Unchanged from Admission Objective Active Medications: Acetaminophen (Tylenol Tab*) 650 mg PO Q4H PRN PRN Reason: FEVER/PAIN Acetaminophen (Tylenol Tab*) 650 mg PO QID [facility] Last Admin: 05/08/17 10:23 Dose: 650 mg Aspirin (Aspirin Ec Low Dose*) 81 mg PO QAM [facility] Last Admin: 05/08/17 10:25 Dose: 81 mg Atorvastatin Calcium (Lipitor*) 20 mg PO QPM [facility] Last Admin: 05/07/17 17:25 Dose: 20 mg Cholecalciferol (Vitamin D Tab*) 1,000 units PO QAM [facility] Last Admin: 05/08/17 10:24 Dose: 1,000 units Citalopram Hydrobromide (Celexa Tab*) 20 mg PO QPM [facility] Last Admin: 05/07/17 17:25 Dose: 20 mg Cyanocobalamin (Vitamin B12 Tab*) 500 mcg PO DAILY [facility] Last Admin: 05/08/17 10:25 Dose: 500 mcg Dextrose (D50w Syringe 50 Ml*) 12.5 gm IV PUSH .FOR FS < 60 - SS PRN PRN Reason: FS < 60 Diltiazem HCl (Cardizem Cd Cap*) 180 mg PO DAILY [facility] Last Admin: 05/08/17 10:24 Dose: 180 mg Glipizide (Glucotrol Tab*) 2.5 mg PO BID [facility] Last Admin: 05/08/17 10:25 Dose: 2.5 mg Lisinopril (Prinivil Tab*) 5 mg PO DAILY [facility] Last Admin: 05/08/17 10:24 Dose: 5 mg Ondansetron HCl (Zofran Inj*) 4 mg IV Q6H PRN PRN Reason: NAUSEA Tramadol HCl (Ultram*) 50 mg PO Q6H PRN PRN Reason: PAIN Last Admin: 05/03/17 18:18 Dose: 50 mg Vital Signs - 8 hr 05/08/17 05/08/17 05/08/17 04:14 07:29 08:00 Temperature 97.9 F Pulse Rate 112 93 Respiratory 20 20 Rate Blood Pressure 119/77 (mmHg) O2 Sat by Pulse 97 Oximetry 05/08/17 09:10 Temperature Pulse Rate 76 Respiratory Rate Blood Pressure 119/77 (mmHg) O2 Sat by Pulse Oximetry Oxygen Devices in Use Now: None Appearance: appears comfotable resting in bed Eyes: No Scleral Icterus Ears/Nose/Mouth/Throat: Clear Oropharnyx, Mucous Membranes Moist Neck: NL Appearance and Movements; NL JVP, Trachea Midline Respiratory: Symmetrical Chest Expansion and Respiratory Effort, Clear to Auscultation Cardiovascular: NL Sounds; No Murmurs; No JVD, No Edema, - Abdominal: NL Sounds; No Tenderness; No Distention Extremities: No Edema, No Clubbing, Cyanosis Neurological: Alert and Oriented x 3, NL Muscle Strength and Tone Nutrition: Taking PO's Result Diagrams: 05/04/17 04:56 05/06/17 05:05 Assess/Plan/Problems-Billing Assessment: 81 F pubic rami fractures after fall pending placement at [facility] - Patient Problems (1) Diabetes Current Visit: Yes Status: Acute Code(s): E11.9 - TYPE 2 DIABETES MELLITUS WITHOUT COMPLICATIONS SNOMED Code(s): 56548184 Comment: glipizide Increased to 2.5 mg bid 05/06. Stopped Lispro. Blood sugars 141 to 170 (2) Elevated INR Current Visit: Yes Status: Acute Code(s): R79.1 - ABNORMAL COAGULATION PROFILE SNOMED Code(s): 812630709 Comment: Holding coumadin recheck tomorrow 2.88 today (3) HTN (hypertension) Current Visit: Yes Status: Acute Code(s): I10 - ESSENTIAL (PRIMARY) HYPERTENSION SNOMED Code(s): 50849540 Comment: lisinopril Increased to 5 mg daily, started 05/06 (4) Hyponatremia Current Visit: Yes Status: Acute Code(s): E87.1 - HYPO-OSMOLALITY AND HYPONATREMIA SNOMED Code(s): 12063870 Comment: chronically low stable (5) Pelvic fracture Current Visit: Yes Status: Acute Code(s): S32.9XXA - FRACTURE OF UNSP PARTS OF LUMBOSACRAL SPINE AND PELVIS, INIT SNOMED Code(s): 78247184 Comment: Pubic rami APAP scheduled ordered. [facility] accepted~ will transfer today (6) Atrial fibrillation Current Visit: No Status: Acute Code(s): I48.91 - UNSPECIFIED ATRIAL FIBRILLATION SNOMED Code(s): 89420839 Comment: INR 4.80 on 05/06. Warfarin d/c'd until INR < 3. INR ordered for . Continue diltiazem. (7) DVT prophylaxis Current Visit: Yes Status: Acute Code(s): HHP2915 - SNOMED Code(s): 650987547 Comment: coumadin Status and Disposition: will transfer to [place] emergency department today
[2017-05-08 13:35] VITALS: BP 125/80
--- NOTE | 2017-05-08 16:22 | DS ---
DATE OF ADMISSION: 05/03/2017. DATE OF DISCHARGE: 05/08/2017. ATTENDING PHYSICIAN: Dr. Donnell Calvert* (dictated by Nohemy Sexton NP). PRIMARY CARE PROVIDER: Dr. Aurora Feliciano. PRIMARY DIAGNOSES: 1. Mechanical fall. 2. Nondisplaced superior and inferior pubic rami fracture. SECONDARY DIAGNOSES: 1. Hypertension. 2. A-fib. 3. Coronary artery disease. 4. Anxiety. 5. Obstructive sleep apnea. 6. Lumbar stenosis. 7. Chronic hyponatremia. 8. 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 STUDIES WHILE IN THE HOSPITAL: 1. She had a hip and pelvis x-ray on 05/03/2017 which initially showed no evidence for fracture and recommended follow-up imaging. 2. She had a CT of the pelvis on 05/03/2017: Radiologist's impression: (1) Nondisplaced fractures of the right superior and inferior pubic rami. (2) Small hematoma in the right obturator internus muscle. (3) Grade 2 anterior spondylolisthesis at the L5-S1 level. (4) Cholelithiasis. DISCHARGE MEDICATIONS: New medication: Tramadol 50 mg p.o. q.6 hours as needed for pain. Continued home medications: 1. Warfarin 2.5 mg p.o. Monday, Monday, Monday, and Monday; and 5 mg p.o. Monday, , and Monday. 2. Lisinopril 5 mg p.o. daily. 3. Glipizide 2.5 mg p.o. b.i.d. 4. Acetaminophen 650 mg q.4 hours as needed for pain. 5. Lexapro 10 mg p.o. q.p.m. 6. Diltiazem 120 mg p.o. q.p.m. 7. Vitamin B12 500 mcg p.o. daily. 8. Vitamin D 1,000 units p.o. q.a.m. 9. Atorvastatin 20 mg p.o. q.p.m. 10. Aspirin 81 mg p.o. q.a.m. HISTORY OF PRESENT ILLNESS AND HOSPITAL COURSE: Ms. Santiago is an 81-year-old female with a history of proximal A-fib and hypertension who presented from home after a fall last night. She was walking into the living room from her kitchen with a cup of iced tea when she fell and landed on her right shoulder and hip. She did not lose consciousness. She recalls the events clearly, but is not sure if she tripped on the rug or why she fell. She did not hit her head. She denied any chest pain, palpitations, lightheadedness, or shortness of breath prior to the fall. After the fall, she complained of pain in her right groin and back, though she slept in a recliner last night and this morning she continued to have pain, so she came to the emergency room. While in the emergency room, she was found to have a nondisplaced fracture of the superior and inferior pubic rami and was admitted to the hospital for pain control. She was placed on telemetry while in the hospital. There were no arrhythmias. We did consult Orthopedic Surgery who recommended continued weightbearing as tolerated and to follow-up as an outpatient in ten days. Ms. Santiago states that she is feeling better today and that her pain is controlled with the current pain medications, on Tramadol. At this time, she will be discharged to [facility]. Ms. Santiago is stable for discharge to [facility] today. Vital signs are as follows: Temperature 97.9, heart rate 52, respirations 20, O2 saturation 96 percent, blood pressure 125/80. DISCHARGE PLAN: 1. Ms. Santiago will be discharged to [facility]. 2. Activity as tolerated. 3. She should continue a consistent carb diet. 4. Pubic rami fracture. She should continue PT and OT for strength training, weightbearing as tolerated and follow-up with Dr. Corcoran in ten days. 5. Diabetes: Her Glipizide was increased while in the hospital to 2.5 mg b.i.d. She should continue on this dose. 6. Hypertension: She should continue on her previous medications for hypertension, Diltiazem 120 mg p.o. daily. While in the hospital, she was started on Lisinopril 5 mg. We should continue this as her blood pressure was elevated during her hospitalization. Suspect this could be due to her pain. Continue to monitor her blood pressure and may need to decrease or DC the Lisinopril. 7. Diabetes: She should continue on Glipizide. Her blood sugars throughout her hospitalization were 141 to 170. Her Glipizide was increased to 2.5 mg p.o. daily. This should be continued. FOLLOW-UP: She should follow-up with her primary care doctor in four to [address] Corcoran in ten days. She needs to call Dr. Corcoran's office to make an appointment. The patient has been instructed to return to the emergency room for any increased pain, inability to ambulate, chest pain or shortness of breath. This is a summary of her hospitalization. For further details, please see the entire medical record. TIME SPENT: Time spent on this discharge was approximately 60 minutes, greater than half that time was spent with the patient discussing discharge plans and instructions. CONDITION ON DISCHARGE: Stable. NOHEMY SEXTON NP [id number]/[facility] #: [id number] MICHAEL
== END 2017-05-08 16:11 | DRG 536 ==
LOC: ED 08:42 → MEDTELE 13:21 → OBSVTOIN 05-04 09:30
PROVIDERS: ADMIT Internal Medicine; ATTEND Internal Medicine
PROC: 5A09357 Assistance with Respiratory Ventilation, Less than 24 Consecutive Hours, Continuous Positive Airway Pressure (ICD-10-PCS; principal; 2017-05-03)
DX: S32.591A Other specified fracture of right pubis, initial encounter for closed fracture (principal); I48.0 Paroxysmal atrial fibrillation; I11.9 Hypertensive heart disease without heart failure; E87.1 Hypo-osmolality and hyponatremia; W18.30XA Fall on same level, unspecified, initial encounter; Y92.008 Other place in unspecified non-institutional (private) residence as the place of occurrence of the external cause; I25.10 Atherosclerotic heart disease of native coronary artery without angina pectoris; F41.9 Anxiety disorder, unspecified; G47.33 Obstructive sleep apnea (adult) (pediatric); M48.061 Spinal stenosis, lumbar region without neurogenic claudication; E55.9 Vitamin D deficiency, unspecified; Z95.3 Presence of xenogenic heart valve; Z79.01 Long term (current) use of anticoagulants; Z79.1 Long term (current) use of non-steroidal anti-inflammatories (NSAID); Z79.899 Other long term (current) drug therapy
CPT/HCPCS: 36415; 72192; 80048; 80053; 81003; 81015; 83605; 84484; 85025; 85610; 86140; 93005; 94660; 99284; A9270-GY; G0378; J2060; J2405

== ENCOUNTER 2017-09-20 10:50 | Emergency (ER) | payer MEDICARE, OTHER ==
--- OUTSIDE RECORDS SUMMARY | 2017-09-20 11:50 | XMS REPORT ---
:1935 External Reference #:[id number] Author Organization [facility] Address [address] [address] Phone [phone] Care Team Providers Name Role Phone Aurora Feliciano MD Primary Care Physician Unavailable Payers Type Date Identification Numbers Payment Provider Subscriber Commercial Policy Number: [id number] [employer] Chelsealynn Perez PayID: [id number] [address] [place] [address] Medigap Part B Effective: 2001 Policy Number: [id number] Medicare Aurora Santiago PayID: [id number] [address] [place] [address] Problems Date Description Provider Status Onset: 04/17/2015 Aortic valve disorder Shirley Arreaga M.D. Active Onset: 04/17/2015 Heart valve replacement Shirley Arreaga M.D. Active Onset: 04/17/2015 Essential hypertension Shirley Arreaga M.D. Active Onset: 04/17/2015 Athscl heart disease of [place] cor art w Shirley Arreaga M.D. 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 Active artery w/o ang pctrs Onset: 05/01/2015 Paroxysmal atrial fibrillation Shirley Arreaga M.D. Active Onset: 05/01/2015 Hypo-osmolality and or hyponatremia Shirley Arreaga M.D. Active Onset: 09/14/2015 Paroxysmal atrial fibrillation Shirley Arreaga M.D. Active Onset: 09/14/2015 Obstructive sleep apnea syndrome Shirley Arreaga M.D. Active Onset: 07/29/2016 Persistent atrial fibrillation Shirley Arreaga M.D. Active Onset: 10/28/2016 Atrial flutter Shirley Arreaga M.D. Active Onset: 08/24/2017 Chronic atrial fibrillation Shirley Arreaga M.D. Active Onset: 05/16/2017 Closed fracture pubis Beau Corcoran MD Active Family History Date Family Member(s) Problem(s) Comments General Heart Disease General Colon Cancer General Alcoholism General Coronary Artery Disease (CAD) General Depression General Diabetes General Stomach Cancer : (age 59 Father due to [place] Years) Father Heart Disease Mother Colon Cancer Mother due to Colon () Cancer Mother Hypertension : (age 75 First Brother due to [place] history of CABG-age 70 Years) : (age 56 Second Brother due to Alcohol Years) Related Second Brother due to Liver () Disease Social History Type Date Description Comments Marital Status 2 Times from first relationship, partner Chelsea in 2012. Has three children, son Zachariah is orthopedic nurse, daughter Judi also a nurse who has diabetes, and has a son with [place]. All children live out of state. Lives With Occupation Retired Cigarette Use pt smoked for 18 years smoked 2.5 PPD quit more than 40 years ago ETOH Use Denies alcohol use Smoking Patient is a former smoker Recreational Drug Use Denies Drug Use Daily Caffeine Consumes on average 1 cup of regular coffee per day Exercise Type/Frequency Exercises regularly Exercise program at [facility] in [facility] Allergies, Adverse Reactions, Alerts Date Description Reaction Status Severity Comments 08/14/2008 Morphine active feels clouded mentally 04/17/2015 Codeine Mental alteration active Moderate Medications Medication Date Status Form Strength Qnty SIG Indications Ordering Provider Warfarin Sodium 05/31/ Active Tablets 1mg 45tab take 1 Shirley 2017 s tablets by Whitley, every M.D. m-w- and as directed Warfarin Sodium 04/21/ Active Tablets 5mg 90tab /2 tab 5 I48.3 Shirley 2015 s days per Whitley, week and 1 M.D. tab 2 days per week as directed Lipitor 08/14/ Active Tablets 20mg 100ta one tab po Bozenatakwame 2008 bs [facility] Ramon Cristina M.D. Aspirin / Active Tablets 81mg 1 by mouth Unknown 0000 every day Am Vitamin D / Active Tablets 1000Unit 1 tab each Unknown (Cholecalciferol day by ) mouth Am Cyanocobalamin / Active Tablets 500mcg one tab po Unknown 0000 once daily PM Cpap / Active Device using Cpap Unknown 0000 Tylenol Extra / Active Tablets 500mg 2 tablet Unknown Strength 0000 po twice daily Am/PM Warfarin Sodium / Active Tablets 2.5mg take as Unknown 0000 directed Diltiazem CD / Active Caps ER 240mg 90cap 1 by mouth Unknown 0000 24HR s every day ( has been taking since 10/2016) Sertraline HCL / Active Tablets 100mg 1 by mouth How, 0000 every day Aurora Degroot MD Vitamin B-12 / Active Tablets 500mcg 1 by mouth Unknown 0000 every day Magnesium 06/23/ Hx Tablets 400mg 60tab 1 by mouth Bozenatakwame 2017 - s once a day S. 05/15/ Jonnie 2017 Cece Diltiazem HCL ER 06/21/ Hx Caps ER 240mg 90cap 1 by mouth I48.3 Shirley 2016 - 24HR s every day Whitley, 05/15/ M.DOdilia 2017 Sotalol HCL (AF) 09/13/ Hx Tablets 80mg 180ta 1 tab by I48.0 Shirley 2015 Lynnette bs mouth Whitley, 09/13/ twice a M.D. 2015 day Propafenone HCL 09/13/ Hx Tablets 225mg 180ta 1 by mouth I48.0 Shirley 2015 Lynnette bs twice a [place], 10/01/ day M.DOdilia 2015 Coumadin 07/22/ Hx Tablets 2.5mg 90tab tab 1 tab Shirley 2015 - s 5 days a [place], 05/15/ week as M.D. 2018 directed Diltiazem CD 04/21/ Hx Caps ER 120mg 90cap 1 by mouth I48.3 Shirley 2016 - 24HR s every day [place], 06/21/ in the at M.D. 2017 night Lovenox 01/26/ Hx Solution 80mg/0.8ML 10uni Inject SC I48.3 Shirley 2016 - ts q 12 hours Whitley 04/30/ juanito Robert directed Alendronate 09/18/ Hx Tablets 70mg 12tab 1 po Qutaybeh Sodium 2008 - weekly S. 03/27/ [facility] Cece Lexapro 08/14/ Hx Tablets 10mg 30tab 1 po qd Qutaybeh 2008 - S. 03/30/ [facility] 2013 Cece Enalapril 08/14/ Hx Tablets 5mg 30tab 1 po bid Qutaybeh Maleate 2008 - S. 04/07/ [facility] 2013 Cece Darvocet-N 100 06/06/ Hx Tablets 100 40tab 1 PO Q4H Frantz 2006 - prn F. 09/18/ Maurizio 2008 Cece Medrol Dosepak 06/06/ Hx Tablets 4mg Frantz 2006 - . 08/14/ Maurizio 2008 Cece Metoprolol / Hx Tablets 100mg 1 by mouth I48.0 Unknown Tartrate 0000 - qAM 2015 Escitalopram / Hx Tablets 10mg 1 by mouth Unknown Oxalate 0000 - every day 2017 Ascriptin MS / Hx Tablets 500-33-33- one tab Unknown 0000 - 237mg prn 2015 Vitamin B12 / Hx Tablets 500mcg 1 by mouth Unknown 0000 - every day 2015 Vitamin B 12 / Hx 500mcg 1 by mouth Unknown 0000 - every day 2016 Lisinopril / Hx Tablets 5mg 1 by mouth Unknown 0000 - every day 2017 Glucotrol XL / Hx Tablets ER 5mg marisol-not Unknown 0000 - 24HR currently 2018 Cardizem CD / Hx Caps ER 120mg 1 by mouth Unknown 0000 - 24HR every day 2017 Tramadol HCL / Hx Tablets 50mg 1-2 Unknown 0000 - tablets 08/23/ every 6 2018 hours as needed Medications Administered in Office Medication Date Status Form Strength Qnty SIG Indications Ordering Provider Technetium TC Administered Injection Shirley [id number] Alan Arreaga M.D. Per Unit Dose Up To 40 Millicuries Immunizations CPT Code Status Date Vaccine Lot # [id number] Given 01/04/2016 Influenza Virus 3Yrs & Over Vital Signs Date Vital Result Comment 08/24/2017 Height 66 inches 5'6" Weight 152.00 lb with shoes Heart Rate 70 /min BP Systolic Sitting 102 mmHg lue reg cuff BP Diastolic Sitting 70 mmHg lue reg cuff BP Systolic Standing 100 mmHg lue reg cuff BP Diastolic Standing 80 mmHg lue reg cuff Respiratory Rate 16 /min BMI (Body Mass Index) 24.5 kg/m2 Ejection Fraction 50-55% date 07/06/16 ECHO 05/16/2017 Height 66 inches 5'6" Weight 180.00 lb BP Systolic 124 mmHg BP Diastolic 70 mmHg Respiratory Rate 20 /min Body Temperature 97.7 F Pain Level 2 BMI (Body Mass Index) 29.0 kg/m2 10/28/2016 Height 66 inches 5'6" Weight 180.00 lb with shoes Heart Rate 82 /min BP Systolic Sitting 138 mmHg LA reg cuff BP Diastolic Sitting 86 mmHg LA reg cuff BP Systolic Standing 126 mmHg LA reg cuff BP Diastolic Standing 82 mmHg LA reg cuff BMI (Body Mass Index) 29.0 kg/m2 Ejection Fraction 50% -55% echo 07/06/16 09/05/2016 Height 66 inches 5'6" Weight 181.00 lb Heart Rate 78 /min BP Systolic Sitting 114 mmHg left arm, reg cuff BP Diastolic Sitting 68 mmHg left arm, reg cuff Respiratory Rate 16 /min O2 % BldC Oximetry 98 % room air BMI (Body Mass Index) 29.2 kg/m2 07/29/2016 Height 66 inches 5'6" Weight 179.00 lb w/ shoes Heart Rate 64 /min BP Systolic Sitting 134 mmHg Lue, reg cuff BP Diastolic Sitting 84 mmHg Lue, reg cuff Respiratory Rate 16 /min BMI (Body Mass Index) 28.9 kg/m2 Ejection Fraction 50-55% as of 07/06/16 echo 06/21/2016 Height 66 inches 5'6" Weight 180.00 lb with shoes Heart Rate 86 /min BP Systolic Sitting 156 mmHg Lue reg cuff BP Diastolic Sitting 102 mmHg Lue reg cuff BP Systolic Standing 158 mmHg Lue reg cuff BP Diastolic Standing 106 mmHg Lue reg cuff Respiratory Rate 18 /min BMI (Body Mass Index) 29.0 kg/m2 Ejection Fraction 60-65% date 04/20/2015 ECHO 10/06/2015 Height 66 inches 5'6" Weight 177.50 lb Heart Rate 80 /min BP Systolic Sitting 110 mmHg Ra reg cuff BP Diastolic Sitting 82 mmHg Ra reg cuff BP Systolic Standing 124 mmHg Ra BP Diastolic Standing 88 mmHg Ra Respiratory Rate 18 /min BMI (Body Mass Index) 28.6 kg/m2 Ejection Fraction 60-65% 04/20/15 10/02/2015 Height 66 inches 5'6" Weight 177.00 lb per pt Heart Rate 92 /min BP Systolic 116 mmHg Lue, reg cuff BP Diastolic 76 mmHg Lue, reg cuff BP Systolic Sitting 106 mmHg Lue BP Diastolic Sitting 80 mmHg Lue Respiratory Rate 16 /min BMI (Body Mass Index) 28.6 kg/m2 Ejection Fraction 60-65% as of 04/20/15 echo 09/14/2015 Height 66 inches 5'6" Weight 182.00 lb with shoes Heart Rate 68 /min BP Systolic Sitting 136 mmHg LA lrg cuff BP Diastolic Sitting 76 mmHg LA lrg cuff BP Systolic Standing 130 mmHg lrg cuff BP Diastolic Standing 74 mmHg lrg cuff Respiratory Rate 16 /min BMI (Body Mass Index) 29.4 kg/m2 Ejection Fraction 60-65% 04/20/15 05/01/2015 Height 66 inches 5'6" Weight 179.00 lb Heart Rate 66 /min BP Systolic Sitting 136 mmHg left arm, reg cuff BP Diastolic Sitting 86 mmHg left arm, reg cuff BP Systolic Standing 138 mmHg left arm, reg cuff BP Diastolic Standing 88 mmHg left arm, reg cuff Respiratory Rate 16 /min BMI (Body Mass Index) 28.9 kg/m2 Ejection Fraction 60-65% 04/20/15 04/21/2015 Height 66 inches 5'6" Weight 182.00 lb Heart Rate 157 /min BP Systolic Sitting 124 mmHg LA reg cuff BP Diastolic Sitting 78 mmHg LA reg cuff BP Systolic Standing 124 mmHg LA BP Diastolic Standing 82 mmHg LA Respiratory Rate 14 /min BMI (Body Mass Index) 29.4 kg/m2 Ejection Fraction 60-65% 01/09/14 04/17/2015 Height 66 inches 5'6" Weight 180.00 lb Heart Rate 76 /min BP Systolic 136 mmHg left arm, reg cuff BP Diastolic 86 mmHg left arm, reg cuff BP Systolic Sitting 124 mmHg right arm, reg cuff BP Diastolic Sitting 82 mmHg right arm, reg cuff BP Systolic Standing 120 mmHg right arm, reg cuff BP Diastolic Standing 84 mmHg right arm, reg cuff Respiratory Rate 16 /min BMI (Body Mass Index) 29.0 kg/m2 Ejection Fraction 60-65% 01/09/14 09/18/2008 Heart Rate 80 /min BP Systolic Sitting 140 mmHg BP Diastolic Sitting 100 mmHg Respiratory Rate 18 /min 08/14/2008 Height 66 inches 5'6" Weight 179.00 lb Heart Rate 85 /min BP Systolic Sitting 170 mmHg L BP Diastolic Sitting 92 mmHg L BMI (Body Mass Index) 28.9 kg/m2 Results Test Date Test Result H/L Range Note Inr/Protime 08/23/2017 Inr 1.58 High 0.77-1.02 Inr/Protime 08/14/2017 Inr 1.74 High 0.77-1.02 CBC Auto Diff 08/08/2017 White Blood Count 11.0 10^3/uL High 3.5-10.8 Red Blood Count 4.74 10^6/uL 4.0-5.4 Hemoglobin 15.5 g/dL 12.0-16.0 Hematocrit 45 % 35-47 Mean Corpuscular Volume 95 fL 80-97 Mean Corpuscular Hemoglobin 33 pg High 27-31 Mean Corpuscular HGB Conc 35 g/dL 31-36 Red Cell Distribution Width 14 % 10.5-15 Platelet Count 227 10^3/uL 150-450 Mean Platelet Volume 9.0 um3 7.4-10.4 Abs Neutrophils 8.8 10^3/uL High 1.5-7.7 Abs Lymphocytes 1.3 10^3/uL 1.0-4.8 Abs Monocytes 0.8 10^3/uL 0-0.8 Abs Eosinophils 0 10^3/uL 0-0.6 Abs Basophils 0.1 10^3/uL 0-0.2 Abs Nucleated RBC 0 10^3/uL Granulocyte % 80.4 % 38-83 Lymphocyte % 11.6 % Low 25-47 Monocyte % 7.0 % 0-7 Eosinophil % 0.4 % 0-6 Basophil % 0.6 % 0-2 Nucleated Red Blood Cells % 0 Comp Metabolic Panel 08/08/2017 Sodium 126 mmol/L Low 139-145 Potassium 4.1 mmol/L 3.5-5.0 Chloride 92 mmol/L Low 101-111 Co2 Carbon Dioxide 23 mmol/L 22-32 Anion Gap 11 mmol/L 2-11 Glucose 132 mg/dL High 70-100 Blood Urea Nitrogen 12 mg/dL 6-24 Creatinine 0.69 mg/dL 0.51-0.95 BUN/Creatinine Ratio 17.4 8-20 Calcium 9.6 mg/dL 8.6-10.3 Total Protein 7.2 g/dL 6.4-8.9 Albumin 4.3 g/dL 3.2-5.2 Globulin 2.9 g/dL 2-4 Albumin/Globulin Ratio 1.5 1-3 Total Bilirubin 0.90 mg/dL 0.2-1.0 Alkaline Phosphatase 78 U/L 34-104 Alt 23 U/L 7-52 Ast 27 U/L 13-39 Egfr Non- 81.3 >60 Egfr 104.5 >60 1 Inr/Protime 08/08/2017 Inr 1.68 High 0.77-1.02 Inr/Protime 08/04/2017 Inr 1.43 High 0.77-1.02 Inr/Protime 07/27/2017 Inr 1.33 High 0.77-1.02 Inr/Protime 07/12/2017 Inr 2.76 High 0.77-1.02 Inr/Protime 07/03/2017 Inr 1.47 High 0.77-1.02 Inr/Protime 06/19/2017 Inr 2.31 High 0.77-1.02 Inr/Protime 06/12/2017 Inr 2.39 High 0.77-1.02 Inr/Protime 06/05/2017 Inr 2.08 High 0.77-1.02 Inr/Protime 06/02/2017 Inr 2.51 High 0.77-1.02 Inr/Protime 05/31/2017 Inr 2.69 High 0.77-1.02 2 Inr/Protime 04/26/2017 Inr 2.57 High 0.77-1.02 3 Inr/Protime 04/12/2017 Inr 2.85 High 0.77-1.02 3 Inr/Protime 03/23/2017 Inr 1.97 High 0.77-1.02 4 Inr/Protime 03/15/2017 Inr 3.43 High 0.77-1.02 5 Inr/Protime 03/01/2017 Inr 2.81 High 0.77-1.02 6, 7 Inr/Protime 02/15/2017 Inr 2.72 High 0.89-1.11 Inr/Protime 01/16/2017 Inr 2.70 High 0.89-1.11 Inr/Protime 01/05/2017 Inr 1.54 High 0.89-1.11 Inr/Protime 12/21/2016 Inr 2.64 High 0.89-1.11 Inr/Protime 12/05/2016 Inr 1.85 High 0.89-1.11 Inr/Protime 10/28/2016 Inr 1.78 High 0.89-1.11 Inr/Protime 09/30/2016 Inr 2.96 High 0.89-1.11 Inr/Protime 08/30/2016 Inr 2.41 High 0.89-1.11 Inr/Protime 07/29/2016 Inr 2.20 High 0.89-1.11 Inr/Protime 07/21/2016 Inr 1.67 High 0.89-1.11 Inr/Protime 05/18/2016 Inr 2.00 High 0.89-1.11 Inr/Protime 03/31/2016 Inr 2.77 High 0.89-1.11 Inr/Protime 03/01/2016 Inr 2.08 High 0.89-1.11 Inr/Protime 01/27/2016 Inr 2.89 High 0.89-1.11 Inr/Protime 12/28/2015 Inr 2.82 High 0.89-1.11 Inr/Protime 12/01/2015 Inr 2.23 High 0.89-1.11 Inr/Protime 11/02/2015 Inr 2.08 High 0.89-1.11 Inr/Protime 10/12/2015 Inr 2.40 High 0.89-1.11 Inr/Protime 09/25/2015 Inr 1.99 High 0.89-1.11 Inr/Protime 09/14/2015 Inr 2.86 High 0.89-1.11 Inr/Protime 09/07/2015 Inr 3.35 High 0.89-1.11 Inr/Protime 07/23/2015 Inr 2.06 High 0.89-1.11 Inr/Protime 06/25/2015 Inr 2.24 High 0.89-1.11 Inr/Protime 06/11/2015 Inr 2.37 High 0.89-1.11 Laboratory test finding 05/28/2015 Inr/Protime 2.30 High 0.89-1.11 8 Laboratory test finding 05/18/2015 Inr/Protime 1.84 High 0.89-1.11 Laboratory test finding 05/11/2015 Inr/Protime 2.96 High 0.89-1.11 9 Laboratory test finding 05/04/2015 Inr/Protime 2.97 High 0.89-1.11 10 Laboratory test finding 05/01/2015 Inr/Protime 3.01 High 0.89-1.11 Laboratory test finding 04/29/2015 Troponin-I (TnI) 0.00 ng/mL <0.03 11 Comp Metabolic Panel 04/29/2015 Sodium 126 mmol/L Low 133-145 Potassium 4.5 mmol/L 3.5-5.0 Chloride 93 mmol/L Low 101-111 Co2 Carbon Dioxide 27 mmol/L 22-32 Anion Gap 6 mmol/L 2-11 Glucose 80 mg/dL 70-100 Blood Urea Nitrogen 16 mg/dL 6-24 Creatinine 0.59 mg/dL 0.51-0.95 BUN/Creatinine Ratio 27.1 High 8-20 Calcium 9.6 mg/dL 8.6-10.3 Total Protein 7.4 g/dL 6.4-8.9 Albumin 4.2 g/dL 3.2-5.2 Globulin 3.2 g/dL 2-4 Albumin/Globulin Ratio 1.3 1-3 Total Bilirubin 0.60 mg/dL 0.2-1.0 Alkaline Phosphatase 63 U/L 34-104 Alt 15 U/L 7-52 Ast 17 U/L 13-39 Egfr Non- 97.8 >60 Egfr 125.8 >60 12 Inr/Protime 04/29/2015 Inr 2.37 High 0.89-1.11 CBC Auto Diff 04/29/2015 White Blood Count 8.3 10^3/uL 3.5-10.8 Red Blood Count 4.42 10^6/uL 4.0-5.4 Hemoglobin 13.8 g/dL 12.0-16.0 Hematocrit 41 % 35-47 Mean Corpuscular Volume 93 fL 80-97 Mean Corpuscular Hemoglobin 31 pg 27-31 Mean Corpuscular HGB Conc 34 g/dL 31-36 Red Cell Distribution Width 13 % 10.5-15 Platelet Count 254 10^3/uL 150-450 Mean Platelet Volume 9 um3 7.4-10.4 Abs Neutrophils 5.1 10^3/uL 1.5-7.7 Abs Lymphocytes 2.1 10^3/uL 1.0-4.8 Abs Monocytes 0.9 10^3/uL High 0-0.8 Abs Eosinophils 0.1 10^3/uL 0-0.6 Abs Basophils 0.1 10^3/uL 0-0.2 Abs Nucleated RBC 0.01 10^3/uL Granulocyte % 61.5 % 38-83 Lymphocyte % 25.5 % 25-47 Monocyte % 10.4 % High 1-9 Eosinophil % 1.8 % 0-6 Basophil % 0.8 % 0-2 Nucleated Red Blood Cells % 0.1 Laboratory test finding 04/29/2015 Troponin-I (TnI) 0.00 ng/mL <0.03 13 Laboratory test finding 04/27/2015 Inr/Protime 3.58 High 0.89-1.11 14 Laboratory test finding 04/24/2015 Inr/Protime 1.87 High 0.89-1.11 Laboratory test finding 04/23/2015 Inr/Protime 2.32 High 0.89-1.11 Inr/Protime 04/22/2015 Inr 1.99 High 0.89-1.11 Order 04/21/2015 EKG <pending> 1 Because ethnic data is not always readily available, this report includes an eGFR for both -Americans and non- Americans. The National Kidney Disease Education Program (NKDEP) does not endorse the use of the MDRD equation for patients that are not between the ages of 18 and 70, are , have extremes of body size, muscle mass, or nutritional status, or are non- or non-. According to the National Kidney Foundation, irrespective of diagnosis, the stage of the disease is based on the level of kidney function: Stage Description GFR(mL/min/1.73 m(2)) 1 Kidney damage with normal or decreased GFR 90 2 Kidney damage with mild decrease in GFR 60-89 3 Moderate decrease in GFR 30-59 4 Severe decrease in GFR 15-29 5 Kidney failure <15 (or dialysis) 2 PLEASE FAX RESULTS TO [phone] 3 PLEASE FAX RESULTS TO [phone] 4 Please note the change in INR reference range effective 17. 5 Please note the change in INR reference range effective 17. 6 Please fax results [phone] Please note the change in INR reference range effective 17. 8 PRN VALID 04/22/15-10/21/15 9 PRN VALID 04/22/15-10/21/15 10 PRN VALID 04/22/15-10/21/15 11 Reference Range and Interpretation: TnI (ng/mL) Interpretation Less Than 0.03 ng/mL Not supportive of diagnosis of [place] 0.03 - 0.50 ng/mL Indeterminate: suggest serial studies if clinically indicated. Greater than 0.5 ng/mL Consistent with diagnosis of [place] 12 Because ethnic data is not always readily available, this report includes an eGFR for both -Americans and non- Americans. The National Kidney Disease Education Program (NKDEP) does not endorse the use of the MDRD equation for patients that are not between the ages of 18 and 70, are , have extremes of body size, muscle mass, or nutritional status, or are non- or non-. According to the National Kidney Foundation, irrespective of diagnosis, the stage of the disease is based on the level of kidney function: Stage Description GFR(mL/min/1.73 m(2)) 1 Kidney damage with normal or decreased GFR 90 2 Kidney damage with mild decrease in GFR 60-89 3 Moderate decrease in GFR 30-59 4 Severe decrease in GFR 15-29 5 Kidney failure <15 (or dialysis) 13 Reference Range and Interpretation: TnI (ng/mL) Interpretation Less Than 0.03 ng/mL Not supportive of diagnosis of [place] 0.03 - 0.50 ng/mL Indeterminate: suggest serial studies if clinically indicated. Greater than 0.5 ng/mL Consistent with diagnosis of [place] 14 PRN VALID 04/22/15-10/21/15 Procedures Date CPT Code Description Status 08/24/2017 94806 EKG Tracing & Interpretation Completed 11/02/2016 70693 Holter Monitor Review (24 hr)dr review & interp only Completed 10/31/2016 17134 ECG Monitor/Recording W/Visual Superimposition Scanning Completed 10/28/2016 93697 EKG Tracing & Interpretation Completed 07/29/2016 37141 EKG Tracing & Interpretation Completed 07/06/2016 04536 ECHO Transthoracic, Real-Time 2D With Doppler And Color Completed Flow 06/21/2016 99293 EKG Tracing & Interpretation Completed 10/06/2015 22136 EKG Tracing & Interpretation Completed 10/06/2015 21484 EKG Tracing & Interpretation Completed 10/02/2015 76191 EKG Tracing & Interpretation Completed 09/14/2015 68026 EKG Tracing & Interpretation Completed 09/04/2015 35818 Color Flow Doppler/Interp & Reprt Completed 09/04/2015 58948 Pulse Wave/Continuous-Interp.RPT Completed 09/04/2015 15826 Echocardiography, Transesophageal, Real Time W/Image 2D Completed W/W/O M-M 09/04/2015 22927 Cardioversion Completed 05/01/2015 86418 EKG Tracing & Interpretation Completed 04/28/2015 70385 Holter Monitor Review (24 hr)dr review & interp only Completed 04/21/2015 69944 EKG Tracing & Interpretation Completed 04/21/2015 11283 EKG Tracing & Interpretation Completed 04/20/2015 94293 ECHO Transthoracic, Real-Time 2D With Doppler And Color Completed Flow 04/17/2015 54891 EKG Tracing & Interpretation Completed 09/30/2014 13303 Holter Monitor Review (24 hr)dr review & interp only Completed 01/09/2014 11740 ECHO Transthorasic Realtime 2D W Doppler & Color Flow Completed Hosp 02/06/2012 91477 Stress Test Completed 02/06/2012 71454 Myocardial Perfusion Imaging Tomographic (Spect) Completed Multiple Studies 08/29/2008 90609 Holter Monitor Interpretation Completed 08/22/2008 36484 Treadmill Interp/Report Only Completed 08/22/2008 95114 Stress Test Supervsn W/Out I/R Completed 08/14/2008 69019 ECHO Transthoracic, Real-Time 2D With Doppler And Color Completed Flow 08/14/2008 79113 EKG Tracing & Interpretation Completed 04/11/2006 10889 Color Doppler Completed 04/11/2006 14871 Pulse Doppler & Continuous Wave Completed 04/11/2006 76210 Pulse Doppler & Continuous Wave Completed 04/11/2006 55372 Echocardiogram Completed Encounters Type Date Location Provider CPT E/M Dx Office Visit 05/16/2017 [facility] [place] [address] S32.591A 10:00a Jam S32.591D Office Visit 05/08/2017 10:25a [facility] Nohemy Sexton, 60156 S32.591A [facility]oc[facility] 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 I48.0 E11.9 W19.xxxA Office Visit 05/07/2017 10:23a [facility] Donnell Enrike, 26413 S32.591A Assoc, Hospitalists M.Niki I48.0 E11.9 W19.xxxA Office Visit 05/06/2017 10:22a [facility] Gary Bah, 60886 S32.591A Assoc, Hospitalists M.Niki I48.0 W19.xxxA Office Visit 05/05/2017 10:19a [facility] Gary Bah, 12237 S32.591A Assoc, Hospitalists M.Niki I48.0 W19.xxxA Office Visit 05/04/2017 10:17a [facility] Garymelany Bah, 41857 S32.591A Assoc, Hospitalists M.DOdilia I48.0 W19.xxxA Office Visit 05/04/2017 2:12p [facility] GEE Burden 81591 S32.591A Of Jam W19.xxxA Office Visit 05/03/2017 10:16a [facility] Rosa Maria Berumen, 51457 S32.591A Assoc, Hospitalists DO I48.0 W19.xxxA Office Visit 10/28/2016 11:20a [facility] Of Shirley Arreaga M.D. 05328 G47.33 [facility] [address] AT [facility] I25.10 Z95.2 I48.92 I48.1 Z91.81 R42 Office Visit 09/05/2016 9:30a [facility] [place] [address] G47.33 Services Of [facility] [address] R53.83 I48.1 Office Visit 07/29/2016 10:40a [facility] Of Shirley Arreaga M.D. 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 30266 I48.0 [facility] [address] I10 R53.83 Z95.2 I25.10 Z91.81 Office Visit 10/02/2015 2:00p [facility] Of Shirley Arreaga M.D. 84035 I48.0 [facility] [address] R42 Office Visit 09/14/2015 1:45p [facility] Shirley Arreaga M.D. 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 82535 Z95.2 [facility] [address] AT [facility] I25.10 R42 I10 I48.0 E87.1 Office Visit 04/21/2015 2:00p [facility] GEE Sanchez 48844 Z95.2 I48.3 I10 Office Visit 04/17/2015 9:00a [facility] Shirley Arreaga M.D. 40621 I35.0 [facility] [address] AT [facility] Z95.2 I25.119 I10 R07.9 Office Visit 09/18/2008 11:40a [facility] Amita Cristina, 12837 424.1 M.DOdilia 785.2 401.1 Office Visit 08/14/2008 10:20a [facility] Amita Cristina, 17052 424.1 M.D. 785.2 786.05 780.4 Office Visit 06/20/2006 1:15p [facility] Wei Gomez, 55681 724.02 Of Rena Zhao 756.17 Office Visit 06/06/2006 3:15p [facility] Of Wei [place], [id number] [phone] Rena Zhao Plan of Care 08/24/2017 - Shirley Arreaga M.D.Z95.2 Presence of prosthetic heart [id number] Nonrheumatic aortic (valve) stenosisComments:Stable function based on my exam.I48.2 Chronic atrial fibrillationComments:The most agressive option to get you off diltiazem and BP up would be a pacemaker and an ablation:Ablation prevents the upper afib from making heart rate too fastBUTYou then are dependant on a pacemaker (but you are off diltiazem).Follow up:3-6 months with ECG with [id number] Dizziness and giddinessComments:Your BP is lower range of normal , likely due to diltiazem.Recommendations:Option of compression stockings. Stand up slowly. Dr Feliciano can discuss this option.I25.10 Athscl heart disease of [place] coronary artery w/o ang pctrsComments:Continue with lipator and aspirinFollow up:Release any 2018 lipids if available.
--- NOTE | 2017-09-20 11:54 | RAD ---
Indication: LEFT side chest pain. Low blood pressure and low heart rate. Comparison: January 09, 2017 Technique: Upright AP 1135 hours Report: Mild prominence of the mid to basilar interstitial markings without change. Additionally there is patchy rarefaction of the mid to upper lung zone interstitial markings. No focal pulmonary lesion, compelling alveolar consolidation, pleural effusion, pneumothorax. Median sternotomy wires and prosthetic aortic valve noted. Mediastinal vascular clips. Unchanged cardiomegaly. Prominent central pulmonary vasculature with peripheral attenuation. Unremarkable mediastinal contours. IMPRESSION: Stigmata of probable chronic obstructive pulmonary disease and potential pulmonary arterial hypertension. No acute cardiopulmonary process evident.
[2017-09-20 12:07] LABS: ABS Basophils 0.1 10^3/ul (0-0.2); ABS Eosinophils 0.1 10^3/ul (0-0.6); ABS Lymphocytes 1.2 10^3/ul (1.0-4.8); ABS Monocytes 0.6 10^3/ul (0-0.8); ABS Neutrophils 5.6 10^3/ul (1.5-7.7); ABS Nucleated RBC 0 10^3/ul; Eosinophil % 0.9 % (0-6); Hematocrit 43 % (35-47); Hemoglobin 14.9 g/dl (12.0-16.0); Lymphocyte % 16.2 % (25-47); Mean Corpuscular HGB Conc 35 g/dl (31-36); Mean Corpuscular Hemoglobin 33 pg (27-31); Mean Corpuscular Volume 94 fL (80-97); Mean Platelet Volume 8.7 um3 (7.4-10.4); Nucleated Red Blood Cells % 0; Platelet Count 220 10^3/ul (150-450); Red Blood Count 4.57 10^6/ul (4.00-5.40); Red Cell Distribution Width 13 % (10.5-15); White Blood Count 7.6 10^3/ul (3.5-10.8)
[2017-09-20 12:08] LABS: INR 3.82 (0.77-1.02)
[2017-09-20 12:19] LABS: EGFR Non-African American 85.5 (>60)
[2017-09-20 14:23] VITALS: BP 146/92
--- NOTE | 2017-09-20 15:39 | ED ---
Mingo Nava Tiffany, scribed for Marquez Du on 09/20/17 at 1144 . HPI Chest Pain - HPI Summary HPI Summary: 81 year old F referred to [facility] by PMD complains of chest pain s/p doing a seated physical therapy exercise two hours ago and has since resolved. Symptoms aggravated by nothing. Symptoms alleviated by nothing. Hx wild dementia. Patient 's delivers HPI. She reports low heart rate, low blood pressure, fatigue. - History of Current Complaint Chief Complaint: EDChestPainROMI Time Seen by Provider: 09/20/17 11:14 Hx Obtained From: Family/Lining Maker - Onset/Duration: Started Hours Ago - 2, Resolved Associated Signs and Symptoms: Positive: Other: - low blood pressure, low heart rate, fatigue - Additional Pertinent History Primary Care Physician: FRANCES - Allergy/Home Medications Allergies/Adverse Reactions: Allergies Allergy/AdvReac Type Severity Reaction Status Date / Time codeine Allergy Unknown Verified 05/03/17 13:36 Reaction Details morphine Allergy Unknown Verified 05/03/17 13:36 Reaction Details Home Medications: Home Medications Acetaminophen [Tylenol Extra Strength] 500 - 1,000 mg PO BID PRN 09/20/17 [ History Confirmed 09/20/17] Aspirin EC TAB* [Ecotrin EC Low Dose 81 MG*] 81 mg PO QAM 09/20/17 [History Confirmed 09/20/17] Atorvastatin* [Lipitor*] 20 mg PO QPM 09/20/17 [History Confirmed 09/20/17] Cholecalciferol TAB* [Vitamin D TAB*] 1,000 unit PO QAM 09/20/17 [History Confirmed 09/20/17] Cyanocobalamin TAB* [Vitamin B12 TAB*] 500 mcg PO QPM 09/20/17 [History Confirmed 09/20/17] Diltiazem CD CAP* [Cardizem CD CAP*] 240 mg PO QPM 09/20/17 [History Confirmed 09/20/17] Warfarin TAB(*) [Coumadin TAB(*)] 1 - 2.5 mg PO QPM 09/20/17 [History Confirmed 09/20/17] PMH/Surg Hx/FS Hx/Imm Hx Previously Healthy: No Endocrine/Hematology History: Reports: Hx Anticoagulant Therapy - plavix, coumadin Denies: Hx Diabetes Cardiovascular History: Reports: Hx Atrial Fibrillation, Hx Coronary Artery Disease, Hx Hypercholesterolemia, Hx Hypertension, Hx Valvular Heart Disease, Other Cardiovascular Problems/Disorders - AORTIC VALVE REPAIR 2009 Denies: Hx Pacemaker/ICD Respiratory History: Reports: Hx Pneumonia Denies: Hx Asthma, Hx Chronic Obstructive Pulmonary Disease (COPD) - KAVON Musculoskeletal History: Reports: Hx Arthritis, Hx Back Problems Denies: Hx Osteoporosis Sensory History: Reports: Hx Contacts or Glasses, Hx Hearing Aid Opthamlomology History: Reports: Hx Contacts or Glasses EENT History: Reports: Hx Hearing Aid Neurological History: Reports: Hx Dementia Psychiatric History: Reports: Hx Anxiety, Hx Depression Denies: Hx Panic Disorder - Cancer History Hx Chemotherapy: No Hx Radiation Therapy: No - Surgical History Surgery Procedure, Year, and Place: AORTIC VALVE REPLACED, STENT 2009. Tonsilectomy - Immunization History Date of Tetanus Vaccine: Unk Date of Influenza Vaccine: Fall 2014 Infectious Disease History: No Infectious Disease History: Denies: Traveled Outside the [place] in Last 30 Days - Family History Known Family History: Positive: None - reviewed & noncontributory, Hypertension Negative: Diabetes Family History: No FHx breast cancer - Social History Alcohol Use: None Hx Substance Use: No Substance Use Type: Reports: None Hx Tobacco Use: Yes Smoking Status (MU): Former Smoker Review of Systems Positive: Fatigue Positive: Chest Pain - resolved, Other - low BP, low heart rate All Other Systems Reviewed And Are Negative: Yes Physical Exam - Summary Physical Exam Summary: Appearance: Well appearing, no pain distress Skin: warm, dry, reflects adequate perfusion Head/face: normal Eyes: EOMI, JARED ENT: normal Neck: supple, non-tender Respiratory: CTA, breath sounds present Cardiovascular: irregular heart beat Abdomen: non-tender, soft Bowel: present Musculoskeletal: normal, strength/ROM intact Neuro: normal, sensory motor intact, A&Ox3 Triage Information Reviewed: Yes Vital Signs On Initial Exam: Initial Vitals Temp Pulse Resp BP Pulse Ox 97.3 F 73 16 137/108 95 09/20/17 10:58 09/20/17 10:58 09/20/17 10:58 09/20/17 10:58 09/20/17 10:58 Vital Signs Reviewed: Yes Diagnostics - Vital Signs Vital Signs Temp Pulse Resp BP Pulse Ox 09/20/17 10:58 97.3 F 73 16 137/108 95 - Laboratory Lab Results: Lab Results 09/20/17 09/20/17 09/20/17 Range/Units 11:41 11:41 11:41 WBC 7.6 (3.5-10.8) 10^3/ul RBC 4.57 (4.00-5.40) 10^6/ul Hgb 14.9 (12.0-16.0) g/dl Hct 43 (35-47) % MCV 94 (80-97) fL MCH 33 H (27-31) pg MCHC 35 (31-36) g/dl RDW 13 (10.5-15) % Plt Count 220 (150-450) 10^3/ul MPV 8.7 (7.4-10.4) um3 Neut % (Auto) 74.2 (38-83) % Lymph % (Auto) 16.2 L (25-47) % Moffat % (Auto) 7.7 H (0-7) % Eos % (Auto) 0.9 (0-6) % Baso % (Auto) 1.0 (0-2) % Absolute Neuts (auto) 5.6 (1.5-7.7) 10^3/ul Absolute Lymphs (auto) 1.2 (1.0-4.8) 10^3/ul Absolute Monos (auto) 0.6 (0-0.8) 10^3/ul Absolute Eos (auto) 0.1 (0-0.6) 10^3/ul Absolute Basos (auto) 0.1 (0-0.2) 10^3/ul Absolute Nucleated RBC 0 10^3/ul Nucleated RBC % 0 INR (Anticoag Therapy) 3.82 H (0.77-1.02) APTT 46.5 H (26.0-36.3) seconds Sodium 128 L (135-145) mmol/L Potassium 4.0 (3.5-5.0) mmol/L Chloride 94 L (101-111) mmol/L Carbon Dioxide 24 (22-32) mmol/L Anion Gap 10 (2-11) mmol/L BUN 15 (6-24) mg/dL Creatinine 0.66 (0.51-0.95) mg/dL Est GFR ( Amer) 103.5 (>60) Est GFR (Non-Af Amer) 85.5 (>60) BUN/Creatinine Ratio 22.7 H (8-20) Glucose 122 H (70-100) mg/dL Lactic Acid (0.5-2.0) mmol/L Calcium 9.8 (8.6-10.3) mg/dL Magnesium 1.8 L (1.9-2.7) mg/dL Total Bilirubin 0.80 (0.2-1.0) mg/dL AST 19 (13-39) U/L ALT 15 (7-52) U/L Alkaline Phosphatase 80 (34-104) U/L Troponin I 0.00 (<0.04) ng/mL B-Natriuretic Peptide ( - 100) pg/mL Total Protein 7.3 (6.4-8.9) g/dL Albumin 4.2 (3.2-5.2) g/dL Globulin 3.1 (2-4) g/dL Albumin/Globulin Ratio 1.4 (1-3) 09/20/17 09/20/17 09/20/17 Range/Units 11:41 11:41 14:44 WBC (3.5-10.8) 10^3/ul RBC (4.00-5.40) 10^6/ul Hgb (12.0-16.0) g/dl Hct (35-47) % MCV (80-97) fL MCH (27-31) pg MCHC (31-36) g/dl RDW (10.5-15) % Plt Count (150-450) 10^3/ul MPV (7.4-10.4) um3 Neut % (Auto) (38-83) % Lymph % (Auto) (25-47) % Moffat % (Auto) (0-7) % Eos % (Auto) (0-6) % Baso % (Auto) (0-2) % Absolute Neuts (auto) (1.5-7.7) 10^3/ul Absolute Lymphs (auto) (1.0-4.8) 10^3/ul Absolute Monos (auto) (0-0.8) 10^3/ul Absolute Eos (auto) (0-0.6) 10^3/ul Absolute Basos (auto) (0-0.2) 10^3/ul Absolute Nucleated RBC 10^3/ul Nucleated RBC % INR (Anticoag Therapy) (0.77-1.02) APTT (26.0-36.3) seconds Sodium (135-145) mmol/L Potassium (3.5-5.0) mmol/L Chloride (101-111) mmol/L Carbon Dioxide (22-32) mmol/L Anion Gap (2-11) mmol/L BUN (6-24) mg/dL Creatinine (0.51-0.95) mg/dL Est GFR ( Amer) (>60) Est GFR (Non-Af Amer) (>60) BUN/Creatinine Ratio (8-20) Glucose (70-100) mg/dL Lactic Acid 1.4 (0.5-2.0) mmol/L Calcium (8.6-10.3) mg/dL Magnesium (1.9-2.7) mg/dL Total Bilirubin (0.2-1.0) mg/dL AST (13-39) U/L ALT (7-52) U/L Alkaline Phosphatase (34-104) U/L Troponin I 0.00 (<0.04) ng/mL B-Natriuretic Peptide 208 H ( - 100) pg/mL Total Protein (6.4-8.9) g/dL Albumin (3.2-5.2) g/dL Globulin (2-4) g/dL Albumin/Globulin Ratio (1-3) Result Diagrams: 09/20/17 11:41 09/20/17 11:41 Lab Statement: Any lab studies that have been ordered have been reviewed, and results considered in the medical decision making process. - Radiology CXR Radiology Interpretation Completed By: Radiologist - Stigmata of probable chronic obstructive pulmonary disease and potential pulmonary arterial hypertension. No acute cardiopulmonary process evident. ED physician has reviewed this report. - EKG 12:05 Cardiac Rate: Tachycardia EKG Rhythm: Atrial Fibrillation Re-Evaluation - Re-Evaluation First Eval Re-Evaluation Time: 15:29 Change: Improved Comment: Patient feels better. She and her are agreeable to discharge. Chest Pain Course/Dx - Course Course Of Treatment: 81 year old F referred to [facility] by PMD complains of chest pain s/p doing a seated physical therapy exercise two hours ago and has since resolved. Bloodwork obtained. CXR/EKG obtained. Negative troponin tests. Patient will be discharged home with follow up from PCP and out-patient stress test with cardiology. - Chest Pain Differential Diagnosis/HQI/PQRI: Acute PA, ACS, Chest Wall, Lower Respiratory Infection - Diagnoses Provider Diagnoses: Chest pain, A-fib Discharge - Sign-Out/Discharge Documenting (check all that apply): Discharge/Admit/Transfer - Discharge - Discharge Plan Condition: Stable Disposition: HOME Patient Education Materials: Chest Pain (ED) Referrals: Aurora Feliciano MD [Primary Care Provider] - 3 Days Shirley Arreaga MD [Medical Doctor] - Additional Instructions: Follow up with your primary care provider, Dr. Feliciano, in 3 days. Schedule an out-patient stress test. You can do this with your primary care provider or with Dr. Arreaga, cardiology. Return to the Emergency Department for new or worsening symptoms. - Billing Disposition and Condition Condition: STABLE Disposition: Home The documentation as recorded by the Mingo morillo Tiffany accurately reflects the service I personally performed and the decisions made by , Marquez Du.
== END 2017-09-20 15:35 | disposition home or self-care (01) ==
LOC: ED 10:50
DX: R07.9 Chest pain, unspecified (principal); I48.91 Unspecified atrial fibrillation; Z79.01 Long term (current) use of anticoagulants; I25.10 Atherosclerotic heart disease of native coronary artery without angina pectoris; E78.00 Pure hypercholesterolemia, unspecified; I10 Essential (primary) hypertension; Z95.2 Presence of prosthetic heart valve; F03.90 Unspecified dementia, unspecified severity, without behavioral disturbance, psychotic disturbance, mood disturbance, and anxiety; Z87.891 Personal history of nicotine dependence
CPT/HCPCS: 36415; 71045; 80053; 83605; 83735; 83880; 84484; 85025; 85610; 85730; 93005; 99283

== ENCOUNTER 2017-10-04 10:22 | Inpatient (IN) | payer MEDICARE, OTHER ==
--- NOTE | 2017-10-04 11:04 | ED ---
Complex/Multi-Sys Presentation - HPI Summary HPI Summary: This pt is an 81 y/o female, accompanied by her , presenting to [facility] via EMS c/o weakness, nausea, vomiting today. reports the pt began to have nausea and vomiting since 02:00 today, and had a headache that lasted until 09: 00 today. Additionally states pt has been very weak having difficulty ambulating, and dizziness. Denies diarrhea, abd pain, SOB, bloody stools, fever. Pt denies any nausea now. reports pt does have dementia. Per , pt's dementia worsened after fall in March for which she had rehab for 3 weeks. notes they had lunch out yesterday and pt may have food poisoning from this. Pt has hx of afib. 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 Arreaga but is switching to a new newsstand vendor located in [place]. Per pt is not a smoker. - History Of Current Complaint Time Seen by Provider: 10/04/17 10:59 Hx Obtained From: Patient, Family/Cloth Bleaching Range Back Tender - Onset/Duration: Lasting Hours, Still Present Timing: Hours Severity Currently: Moderate Aggravating Factor(s): nothing Alleviating Factor(s): nothing Associated Signs And Symptoms: Positive: Confusion, Dizziness, Weakness, Headache, Nausea, Vomiting. Negative: SOB, Diarrhea, Abdominal Pain, Fever, Other - bloody stools - Allergies/Home Medications Allergies/Adverse Reactions: Allergies Allergy/AdvReac Type Severity Reaction Status Date / Time codeine Allergy Unknown Verified 10/04/17 11:04 Reaction Details morphine Allergy Unknown Verified 10/04/17 11:04 Reaction Details PMH/Surg Hx/FS Hx/Imm Hx Endocrine/Hematology History: Reports: Hx Anticoagulant Therapy - plavix, coumadin Denies: Hx Diabetes Cardiovascular History: Reports: Hx Atrial Fibrillation, Hx Coronary Artery Disease, Hx Hypercholesterolemia, Hx Hypertension, Hx Valvular Heart Disease, Other Cardiovascular Problems/Disorders - AORTIC VALVE REPAIR 2009 Denies: Hx Pacemaker/ICD Respiratory History: Reports: Hx Pneumonia Denies: Hx Asthma, Hx Chronic Obstructive Pulmonary Disease (COPD) - [place] Musculoskeletal History: Reports: Hx Arthritis, Hx Back Problems Denies: Hx Osteoporosis Sensory History: Reports: Hx Contacts or Glasses, Hx Hearing Aid Opthamlomology History: Reports: Hx Contacts or Glasses Neurological History: Reports: Hx Dementia Psychiatric History: Reports: Hx Anxiety, Hx Depression Denies: Hx Panic Disorder - Cancer History Hx Chemotherapy: No Hx Radiation Therapy: No - Surgical History Surgery Procedure, Year, and Place: AORTIC VALVE REPLACED, STENT 2009. Tonsilectomy - Immunization History Date of Tetanus Vaccine: Unk Date of Influenza Vaccine: Fall 2014 Infectious Disease History: Denies: Traveled Outside the [place] in Last 30 Days - Family History Known Family History: Positive: Hypertension Negative: Diabetes Family History: No FHx breast cancer - Social History Alcohol Use: None Hx Substance Use: No Substance Use Type: Reports: None Hx Tobacco Use: Yes Smoking Status (MU): Former Smoker Review of Systems Negative: Fever, Chills Negative: Shortness Of Breath Positive: Vomiting, Nausea - denies nausea now. Negative: Abdominal Pain, Diarrhea, Other - bloody stools Neurological: Other - POS: dizziness Positive: Headache, Weakness All Other Systems Reviewed And Are Negative: Yes Physical Exam - Summary Physical Exam Summary: Appearance: Well appearing, no pain distress Skin: warm, dry, reflects adequate perfusion Head/face: normal. Eyes: EOMI, JARED ENT: Mucous membranes are dry. No thyromegaly. Neck: supple, non-tender Respiratory: CTA, breath sounds present Cardiovascular: Heart is tachycardic and irregularly irregular, no murmur, pulses symmetrical Abdomen: non-tender, soft. Decreased bowel sounds. No significant distension. Bowel: present Musculoskeletal: normal, strength/ROM intact Neuro: normal, sensory motor intact, A&Ox3 Triage Information Reviewed: Yes Vital Signs On Initial Exam: Initial Vitals Temp Pulse Resp BP Pulse Ox 97.3 F 125 18 144/99 93 10/04/17 10:52 10/04/17 10:52 10/04/17 10:52 10/04/17 10:52 10/04/17 10:52 Vital Signs Reviewed: Yes Diagnostics - Laboratory Result Diagrams: 10/04/17 11:34 10/04/17 11:34 Lab Statement: Any lab studies that have been ordered have been reviewed, and results considered in the medical decision making process. - Radiology Chest XR Xray Interpretation: Positive (See Comments) - IMPRESSION: Hyperinflation with stable enlargement of the central pulmonary vessels. Dr. Rosado has reviewed this radiology report. Radiology Interpretation Completed By: Radiologist - EKG 11:17 Cardiac Rate: Tachycardia - at 120 bpm EKG Rhythm: Atrial Fibrillation - rapid ST Segment: Non-Specific EKG Interpretation: LVH criteria. Anterior Q waves. 12:05 Cardiac Rate: NL - at 98 bpm EKG Rhythm: Atrial Fibrillation ST Segment: Non-Specific EKG Interpretation: LAD. Q waves anteriorly. Complex Multi-Symp Course/Dx Course Of Treatment: Patient presents with weakness and rapid ventricular response atrial fibrillation. She is currently therapeutically anticoagulated on warfarin. She has not had any chest pain or shortness of breath. There is no fever or septic source that is obvious on exam. Her heart rate was controlled with diltiazem, diltiazem drip. She was hydrated. There is some glucose in the urine. Hospitalist was contacted and will admit. - Diagnoses Differential Diagnoses/HQI/PQRI: Cardiac Ischemia, Metabolic Abnormality, Sepsis , Urinary Tract Infection Provider Diagnoses: Rapid atrial fibrillation - Physician Notifications Discussed Care Of Patient With: Gary Bah Time Discussed With Above Provider: 12:11 Instructed by Provider To: Admit As Inpatient - Critical Care Time Critical Care Time: 30-74 min - 30 minutes - CCT is EXCLUSIVE of separately billable procedures Discharge - Sign-Out/Discharge Documenting (check all that apply): Patient Departure - Admit - Discharge Plan Condition: Guarded Disposition: ADMITTED TO [facility] - Billing Disposition and Condition Condition: GUARDED Disposition: Admitted to [facility]
[2017-10-04] MEDS ORDERED: NS 0.9% 1000 ML* 1,000 ML IV ONE (11:08)
[2017-10-04] MEDS ORDERED: Diltiazem DRIP* 100 MG/100 ML ADDV.BAG IVPB ONE (11:10)
[2017-10-04] MEDS ORDERED: Diltiazem IV* 5 MG/ML 5 ML VIAL (for loading dose/IV Push) (25 MG) IV SLOW PU ONE (11:10)
[2017-10-04 11:55] LABS: ABS Basophils 0 10^3/ul (0-0.2); ABS Eosinophils 0 10^3/ul (0-0.6); ABS Lymphocytes 0.5 10^3/ul (1.0-4.8); ABS Monocytes 0.3 10^3/ul (0-0.8); ABS Neutrophils 10.6 10^3/ul (1.5-7.7); ABS Nucleated RBC 0 10^3/ul; Eosinophil % 0 % (0-6); Hematocrit 47 % (35-47); Hemoglobin 16.3 g/dl (12.0-16.0); Lymphocyte % 4.5 % (25-47); Mean Corpuscular HGB Conc 34 g/dl (31-36); Mean Corpuscular Hemoglobin 33 pg (27-31); Mean Corpuscular Volume 95 fL (80-97); Mean Platelet Volume 8.9 um3 (7.4-10.4); Nucleated Red Blood Cells % 0; Platelet Count 237 10^3/ul (150-450); Red Blood Count 5.01 10^6/ul (4.00-5.40); Red Cell Distribution Width 13 % (10.5-15); White Blood Count 11.4 10^3/ul (3.5-10.8)
--- NOTE | 2017-10-04 11:57 | RAD ---
HISTORY: rapid afib COMPARISONS: September 20, 2017 VIEWS: 1: frontal portable view of the chest at 11:30 AM FINDINGS: LINES AND TUBES: None. CARDIOMEDIASTINAL SILHOUETTE: The cardiomediastinal silhouette is stable. PLEURA: The costophrenic angles are sharp. No pleural abnormalities are noted. LUNG PARENCHYMA: There is hyperinflation. There is enlargement of the central pulmonary vasculature. ABDOMEN: The upper abdomen is clear. There is no subphrenic gas. BONES AND SOFT TISSUES: The patient is status post median sternotomy. IMPRESSION: HYPERINFLATION WITH STABLE ENLARGEMENT OF THE CENTRAL PULMONARY VESSELS.
[2017-10-04 11:59] LABS: INR 3.05 (0.77-1.02)
[2017-10-04 12:12] LABS: EGFR Non-African American 115.2 (>60)
[2017-10-04] MEDS ORDERED: Diltiazem IV VIAL* 125 MG in NS 0.9% 100 ML* 100 ML IV ONE (12:30)
[2017-10-04 12:37] LABS: Urine Appearance Clear; Urine Blood Negative (Negative); Urine Color Straw; Urine Ketones Trace (Negative); Urine Protein 2+(100 mg/dL) (Negative); Urine Red Blood Cell 1+(3-5/hpf) (Absent); Urine Specific Gravity 1.007 (1.010-1.030); Urine Urobilinogen Negative (Negative); Urine White Blood Cell Trace(0-5/hpf) (Absent)
[2017-10-04] MEDS ORDERED: Albuterol 2.5 MG/3 ML NEB.SOL* (0.083%) INH PRN (12:47)
[2017-10-04] MEDS ORDERED: Ondansetron INJ* 2 MG/ML VIAL IV PRN (12:47)
[2017-10-04] MEDS ORDERED: Al Hydrox/Mg Hydrox/Simet LIQ* 30 ML UDC PO PRN (12:47)
[2017-10-04] MEDS ORDERED: Acetaminophen TAB* 325 MG PO PRN (12:47)
[2017-10-04] MEDS ORDERED: Magnesium Hydroxide LIQ* 30 ML UDC PO PRN (12:47)
[2017-10-04] MEDS ORDERED: NS 0.9% 1000 ML* 1,000 ML IV SCH (13:00)
[2017-10-04] MEDS ORDERED: Metoprolol Tartrate IV* 1 MG/ML 5 ML VIAL IV PRN (13:10)
--- NOTE | 2017-10-04 14:38 | HP ---
CC: Dr. Feliciano.* ADMISSION HISTORY AND PHYSICAL: DATE OF ADMISSION: 10/04/17 PATIENT OF: Dr. Carlo Bah.* (DICTATED BY GEE NOGUERA) PRIMARY CARE PHYSICIAN: Dr. Feliciano. PRIMARY QUARTZ MINER: Dr. Arreaga at [facility] and Dr. Edge at [facility]. CHIEF COMPLAINT: Nausea and vomiting. HISTORY OF PRESENT ILLNESS: Mrs. Santiago is an 81-year-old female who carries a past medical history significant for paroxysmal atrial fibrillation for which she has been chronically on Coumadin as well as hypertension who presented to the emergency room earlier today with complaints of intermittent nausea and vomiting since 2 o'clock this morning. Most of the history is obtained from the patient's significant other, Arleth who was present at the bedside and the patient is very hard of hearing and does not provide any significant history given her dementia. She apparently had food intake outdoors yesterday and got up early this morning with complaints of nausea and vomiting. She denied any associated abdominal pain, diarrhea, fever, or chills. Her significant other thought that the patient might have been dehydrated since she has been acting sluggish and not feeling well overall later on today. She presented to the emergency room and had laboratory workup that showed mild dehydration. She also has a history of chronic atrial fibrillation and was found to have a rate of 150 or 160 that was significantly improved after a dose of diltiazem. The patient denied any associated symptoms of palpitation, chest pain, dizziness, or shortness of breath. She had been followed by Dr. Arreaga as an outpatient and recently seen by Dr. Edge last Monday in [place] for plans to have a pacemaker as well as cardiac ablation in early October of this year. Given her ongoing symptoms and her known history of atrial fibrillation, we were asked to see the patient to consider admission for observation and symptomatic management of her nausea. PAST MEDICAL HISTORY: Significant for: 1. Paroxysmal AFib, for which she has been on Coumadin for anticoagulation. 2. Hypertension. 3. Aortic valve replacement secondary to aortic stenosis. 4. Coronary artery disease. 5. Anxiety. 6. Osteoarthritis. 7. Obstructive sleep apnea, she is on CPAP. 8. Lumbar spinal stenosis. 9. Chronic hyponatremia. CURRENT MEDICATIONS: Her medications at home include: 1. Tylenol 1000 mg p.o. b.i.d. 2. Aspirin 81 mg p.o. daily. 3. Atorvastatin 20 mg p.o. daily. 4. Vitamin D 1000 units p.o. daily. 5. Vitamin B12 of 500 mcg p.o. daily. 6. Cardizem 240 mg p.o. q.p.m. 7. Coumadin 2.5 alternating with 1 mg q.p.m. ALLERGIES: She is allergic to CODEINE and MORPHINE. FAMILY HISTORY: Reviewed and noncontributory. SOCIAL HISTORY: The patient is a nonsmoker who denies alcohol use or illicit drug. 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 REVIEW OF SYSTEMS: See HPI, otherwise 14-point review of systems were essentially negative. PHYSICAL EXAMINATION GENERAL: She is a pleasant elderly female in no acute distress or discomfort at the time of admission. VITAL SIGNS: Reveal a temperature of 97.3, pulse of 95, respirations of 18, blood pressure of 151/100, and O2 sat of 93% on room air. HEENT: Head is normocephalic and atraumatic. Sclerae anicteric. PERRLA. EOMs intact. Oropharynx pink and moist. NECK: Supple. Trachea midline. No cervical adenopathy, thyromegaly, or JVD. LUNGS: Clear to auscultation bilaterally. HEART: Irregular, rate, and rhythm. Normal S1 and S2 without rubs, murmurs, or gallops. BACK: Normal curvature, no CVA tenderness. ABDOMEN: Soft, nontender, and nondistended. No hernias, masses, or hepatosplenomegaly. EXTREMITIES: Without cyanosis, clubbing, or edema. BREAST: Deferred at this time. RECTAL: Deferred at this time. NEUROLOGIC: She is awake, appears drowsy, but alert upon command and oriented to time and place. LABORATORY WORKUP: CBC with a white count of 11,400, hemoglobin 16.3, hematocrit of 47, and platelets of 237. Her INR is 3.05. Chemistry panel with a sodium of 131, potassium 3.6, chloride 95, CO2 of 24, BUN of 10, and creatinine of 0.51, her glucose of 192, lactic acid 1.9. LFTs within normal limits. BNP elevated at 406. Her TSH is 1.07. ACCESSORY DIAGNOSTIC DATA: EKG with atrial fibrillation with rapid ventricular response initially at 110 per minute now more rate controlled at mid to high 90s. Chest x-ray with hyperinflation and stable enlargement of the pulmonary vessel. No acute changes. ASSESSMENT: An 81-year-old female with past medical history significant for paroxysmal atrial fibrillation for which she has been chronically on Coumadin and have future plans for pacemaker placement and ablation next month in [place], who presented with nausea and vomiting since this morning likely attributed to gastroenteritis with secondary dehydration as well as atrial fibrillation that seemed to be rate controlled after diltiazem administration. PLAN: 1. Atrial fibrillation. The patient will be admitted to telemetry unit for close observation. Her rate seemed to be better controlled at this point, for which we will hold her diltiazem drip. I have spoken with Dr. Arreaga since she is familiar with the patient from seeing her in the clinic. We will continue her night dose of diltiazem p.o. as well as provide the metoprolol as needed for rate control if it consistently goes above 110. She appears to be hemodynamically stable at this time. We reviewed her record and her last echocardiogram was done in August of 2015, for which we will beat her echo during this admission. We will also continue her Coumadin; however, will be on hold for tonight since her INR is slightly supratherapeutic at 3.05. 2. Hypertension. Appears to be stable at this time, slightly elevated diastolic blood pressure. I will continue her home medication, on diltiazem for the time being. 3. History of fall with nondisplaced pubic rami fracture last April. Seems to be healed and the patient is ambulatory. We will provide supportive care and pain management. 4. Coronary artery disease. She is on a baby aspirin and statin and we will continue her home medication. 5. Obstructive sleep apnea. We will continue her CPAP. 6. DVT prophylaxis. She is currently on Coumadin and INR is supratherapeutic. We will use SCDs for the time being. 7. Code status. She is a full code and her , Arleth is the health care proxy carrier. TIME SPENT: Approximately 60 minutes were spent admitting this patient with greater than 50% on taking history and performing physical exam. I have discussed the case with Dr. Bah, my attending who agreed to the plan of care. GEE NOGUERA [id number]/[facility] #: [id number] MICHAEL
[2017-10-04] MEDS ORDERED: LORazepam TAB(*) 0.5 MG PO ONE (17:36)
[2017-10-04] MEDS ORDERED: Diltiazem CD CAP* 240 MG PO SCH (18:00)
[2017-10-04] MEDS ORDERED: Cyanocobalamin TAB* 500 MCG PO SCH (18:00)
[2017-10-04] MEDS ORDERED: Atorvastatin* 20 MG TAB PO SCH (18:00)
[2017-10-04] MEDS ORDERED: Diltiazem IV VIAL* 125 MG in NS 0.9% 100 ML* 100 ML IV SCH ×2 (19:00→21:00)
--- NOTE | 2017-10-04 20:36 | PN ---
Cardiology Progress Note Date of Service: 10/04/17 Asked to see pt with chronic afib to assist with rate control in setting of n/v. Pt lying flat, face very hyperemic. Delirious, unable to answer questions. per sitter, the patient is currently the calmest she has been since she has been with her. Initial Vitals Pulse Resp BP Pulse Ox 113 35 144/99 94 10/04/17 10:34 10/04/17 10:34 10/04/17 10:34 10/04/17 10:34 tachypnic, appears in acute medical distress. BS clear laterally and anteriorly.\ abdomen non distended, I don't hear bowel sounds, not tender to mild palpation. Extremities: mild edema, stigmata of chronic venous stasis. Monitor: afib, RVR 160's Laboratory Tests 10/04/17 10/04/17 10/04/17 11:34 11:34 11:34 WBC 11.4 H RBC 5.01 Hgb 16.3 H Hct 47 MCV 95 MCH 33 H MCHC 34 RDW 13 Plt Count 237 MPV 8.9 Neut % (Auto) 92.6 H Lymph % (Auto) 4.5 L Benton % (Auto) 2.6 Eos % (Auto) 0 Baso % (Auto) 0.3 Absolute Neuts (auto) 10.6 H Absolute Lymphs (auto) 0.5 L Absolute Monos (auto) 0.3 Absolute Eos (auto) 0 Absolute Basos (auto) 0 Absolute Nucleated RBC 0 Nucleated RBC % 0 INR (Anticoag Therapy) 3.05 H Sodium 131 L Potassium 3.6 Chloride 95 L Carbon Dioxide 24 Anion Gap 12 H BUN 10 Creatinine 0.51 Est GFR ( Amer) 139.4 Est GFR (Non-Af Amer) 115.2 BUN/Creatinine Ratio 19.6 Glucose 192 H Lactic Acid Calcium 9.7 Total Bilirubin 0.90 AST 20 ALT 12 Alkaline Phosphatase 106 H Troponin I 0.00 B-Natriuretic Peptide Total Protein 8.5 Albumin 4.7 Globulin 3.8 Albumin/Globulin Ratio 1.2 TSH 1.07 Urine Color Urine Appearance Urine pH Ur Specific Lawrence Urine Protein Urine Ketones Urine Blood Urine Nitrate Urine Bilirubin Urine Urobilinogen Ur Leukocyte Esterase Urine WBC (Auto) Urine RBC (Auto) Urine Bacteria Urine Glucose 07/11/18 07/11/18 07/11/18 11:34 11:34 12:17 WBC RBC Hgb Hct MCV MCH MCHC RDW Plt Count MPV Neut % (Auto) Lymph % (Auto) Benton % (Auto) Eos % (Auto) Baso % (Auto) Absolute Neuts (auto) Absolute Lymphs (auto) Absolute Monos (auto) Absolute Eos (auto) Absolute Basos (auto) Absolute Nucleated RBC Nucleated RBC % INR (Anticoag Therapy) Sodium Potassium Chloride Carbon Dioxide Anion Gap BUN Creatinine Est GFR ( Amer) Est GFR (Non-Af Amer) BUN/Creatinine Ratio Glucose Lactic Acid 1.9 Calcium Total Bilirubin AST ALT Alkaline Phosphatase Troponin I B-Natriuretic Peptide 406 H Total Protein Albumin Globulin Albumin/Globulin Ratio TSH Urine Color Straw Urine Appearance Clear Urine pH 7.0 Ur Specific Lawrence 1.007 L Urine Protein 2+(100 mg/dl) A Urine Ketones Trace A Urine Blood Negative Urine Nitrate Negative Urine Bilirubin Negative Urine Urobilinogen Negative Ur Leukocyte Esterase Negative Urine WBC (Auto) Trace(0-5/hpf) Urine RBC (Auto) 1+(3-5/hpf) A Urine Bacteria Absent Urine Glucose 3+(>=500 mg/dl) A 10/04/17 10/04/17 15:29 18:02 WBC RBC Hgb Hct MCV MCH MCHC RDW Plt Count MPV Neut % (Auto) Lymph % (Auto) Benton % (Auto) Eos % (Auto) Baso % (Auto) Absolute Neuts (auto) Absolute Lymphs (auto) Absolute Monos (auto) Absolute Eos (auto) Absolute Basos (auto) Absolute Nucleated RBC Nucleated RBC % INR (Anticoag Therapy) Sodium Potassium Chloride Carbon Dioxide Anion Gap BUN Creatinine Est GFR ( Amer) Est GFR (Non-Af Amer) BUN/Creatinine Ratio Glucose Lactic Acid Calcium Total Bilirubin AST ALT Alkaline Phosphatase Troponin I 0.00 0.01 B-Natriuretic Peptide Total Protein Albumin Globulin Albumin/Globulin Ratio TSH Urine Color Urine Appearance Urine pH Ur Specific Lawrence Urine Protein Urine Ketones Urine Blood Urine Nitrate Urine Bilirubin Urine Urobilinogen Ur Leukocyte Esterase Urine WBC (Auto) Urine RBC (Auto) Urine Bacteria Urine Glucose A/p Full dictation to follow. The patient appears acutely ill, in distress. Mentation/delerium new, marked change in mentation. ?acute abdominal process, check KUB, discussed with hospitalists to work up further. THe patient was seen by me in my office earlier this year and my recollection is she was on antidepressants, per hospitalists non on med list now. 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 The patient's clinical exam is out of proportion to lab findings above, further evaluation/diagnosis is needed. For afib, RVR, I think the RVR is secondary to the acute process/illness. I recommend diltiazem gtt and titrate to keep HR 80- 120, sbp >110 (start 10 mg IVP, 5 mg/hour gtt, increase to 10 mg / hr gtt prn) INR theraputic.
--- NOTE | 2017-10-04 20:56 | ECHO ---
Patient: GABBY DARLING [facility] Rec#: [id number] : 1935 Date: 10/04/2017 Age: 81y Height: 167.6 cm / 66.0 in Weight: 68.5 kg / 151.0 lbs Sex: F BSA: 1.8 Room#: ED 16 Admit Date#: 10/04/2017 Type: Inpatient Referring: Keven Lopez Reading: Shirley Arreaga MD [place] Chief: Malissa Lombardi RN RDCS CC: Gabby Feliciano MD Transthoracic Echocardiogram Indication: Atrial fibrillation BP: 144/99 HR: 115 Rhythm: A-Fib Findings History: CAD, PCI, bioprosthetic AVR 2009, HTN, HLD, obstructive sleep apnea, former smoker, dementia Technical Comments: The study quality is fair. The study is technically limited due to the patient's smoking history. Left Ventricle: The left ventricular chamber size is normal. Mild to moderate concentric left ventricular hypertrophy is observed. There is increased basal septal hypertrophy noted without evidence of an increased gradient across the left ventricular outflow tract. There is global hypokinesis of the left ventricle with minor regional variation. There is mildly decreased left ventricular systolic function. The estimated ejection fraction is 45-50%. Post surgical hypokinesis of the interventricular septum is observed consistent with valve replacement. Abnormal left ventricular diastolic function is observed. The left ventricular diastolic filling pattern is consistent with elevated left ventricular end-diastolic pressure. Left Atrium: The left atrium is moderate to severely dilated. Right Ventricle: The right ventricular cavity size is normal. The right ventricular global systolic function is low normal. Right Atrium: The right atrium is mild to moderately dilated. Aortic Valve: The aortic valve structure is not well visualized. There is a trace of aortic regurgitation. The mean gradient of the aortic valve is 7.8 mmHg. The peak instantaneous gradient of the aortic valve is 12.5 mmHg. A bovine bio-prosthetic aortic valve is present. The bio-prosthetic aortic valve appears to be functioning normally. Mitral Valve: Moderate mitral annular calcification present. The mitral valve leaflets are moderately thickened. Mitral valve leaflet mobility is mildly restricted. There is mild mitral regurgitation. The mitral regurgitant jet is posteriorly directed. The mitral regurgitant jet is laterally directed. There is borderline mitral stenosis. The mean gradient across the mitral valve is 3.1 mmHg. Tricuspid Valve: The tricuspid valve leaflets are normal. There is mild to moderate tricuspid regurgitation. The right ventricular systolic pressure is estimated at 35 mmHg. There is evidence of borderline pulmonary hypertension. There is no tricuspid stenosis. Pulmonic Valve: The pulmonic valve structure is not well visualized. There is no evidence of pulmonic regurgitation. There is no pulmonic stenosis. Pericardium: There is no significant pericardial effusion. A pericardial fat pad is visualized. Aorta: There is mild dilatation of the ascending aorta. There is no dilatation of the aortic arch. There is no dilation of the aortic root. Pulmonary Artery: The main pulmonary artery is not well visualized. Venous: The venous system is not well visualized. The inferior vena cava is not visualized. Conclusions The left ventricular chamber size is normal. Mild to moderate concentric left ventricular hypertrophy is observed. There is global hypokinesis of the left ventricle with minor regional variation, dysychrony of the interventricular septum consistent with valve replacement. LVEF 45-50% The right ventricular global systolic function is low normal. Bi atrial enlargement, expected in chronic afib. The bovine bio-prosthetic aortic valve appears to be functioning normally. The mean gradient of the aortic valve is 7.8 mmHg, trace aortic insufficiency. Moderate mitral annular calcification present and the mitral valve leaflets are moderately thickened and calcified. Mitral valve leaflet mobility is mildly restricted. There is mild mitral regurgitation. There is borderline mitral stenosis, the mean gradient is 3.1 mmHg. There is mild to moderate tricuspid regurgitation. There is evidence of borderline pulmonary hypertension: 35 mmHg. Compared with prior echo of 07/06/16, EF has decreased from 50-55%, AVR function is stable, MAC and mild MR seen previously, TR has increased from trace, aorta diameter not significantly changed. Measurements Name Value Normal Range RVDdMajor (2D) 3.5 cm (2.2 - 4.4) RAd ISD 4CH 5.5 cm (3.4 - 4.9) RA (A4C)W 3.6 cm (2.9 - 4.6) IVSd (2D) 1.3 cm (0.6 - 1) LVPWd (2D) 1.3 cm (0.6 - 1) LVIDd (2D) 3.6 cm (3.6 - 5.4) LVIDs (2D) 2.6 cm - LV FS (2D) 28 % (25 - 45) Aortic Annulus 1.8 cm (1.4 - 2.6) Ao root diameter (2D) 3.4 cm (2.1 - 3.5) Ascending Ao 3.6 cm (2.1 - 3.4) Aortic arch 2.5 cm (1.8 - 3.4) LA dimension (AP) 2D 4.2 cm (2.3 - 3.8) LAd ISD 4CH 5.8 cm (2.9 - 5.3) LA ISD 4CH W 5 cm (2.5 - 4.5) Name Value Normal Range LA ESV SP 4CH (A/L) 106 ml - LA ESV SP 2CH (A/L) 69 ml - LA ESV BP (A/L) 90 ml - LA ESV BP (A/L) index 50.8 ml/m2 - LA ESV SP 4CH (MOD) 103 ml - LA ESV SP 2CH (MOD) 67 ml - Name Value Normal Range MV E-wave Vmax 1.2 m/sec - MV deceleration time 179 msec - LV septal e' Vmax 0.07 m/sec - LV lateral e' Vmax 0.08 m/sec - LV E:e' septal ratio 17.1 ratio - LV E:e' lateral ratio 15 ratio - Name Value Normal Range AV Vmax 1.8 m/sec - AV VTI 27.5 cm - AV peak gradient 12.5 mmHg - AV mean gradient 7.8 mmHg - LVOT diameter 2 cm - LVOT Vmax 0.99 m/sec - LVOT VTI 17.3 cm - LVOT peak gradient 3.9 mmHg - LVOT mean gradient 2.2 mmHg - DOI (VTI) 0.63 ratio - DOI (Vmax) 0.55 ratio - YOLI (continuity Vmax) 1.7 cm2 - YOLI (continuity VTI) 2 cm2 - Name Value Normal Range MV Vmax 1.4 m/sec - MV VTI 21.3 cm - MV peak gradient 8.1 mmHg - MV mean gradient 3.1 mmHg - MV PHT 62 msec - MVA (PHT) 3.5 cm2 - MVA (continuity VTI) 2.6 cm2 - Name Value Normal Range TR Vmax 2.6 m/sec - TR peak gradient 27 mmHg - RAP 8 mmHg - RVSP 35 mmHg - Name Value Normal Range PV Vmax 0.6 m/sec -
[2017-10-04] MEDS ORDERED: niCARdipine 0.1MG/ML IVPREMIX* 20 MG/200 ML BAG ONE (21:20)
--- NOTE | 2017-10-04 21:33 | RAD ---
Indication: Altered mental status. Comparison: August 08, 2017 CT. Technique: Noncontrast CT vertex of skull through foramen magnum. Report: New large intra-axial hematoma at the cerebellum involving the LEFT greater than RIGHT hemisphere measuring up to 3.7 cm AP by 6.0 cm transverse by 4.1 cm cephalocaudal. Intraventricular extension to to the fourth, third, and lateral ventricles. Effacement of the basal cisterns including the cerebellopontine angles and quadrigeminal plate cistern. No appreciable midline shift. 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 Atria of the LEFT lateral ventricle measures 2.5 cm transverse compared with 1.9 cm previously. Negative for sulcal effacement with pre-existing atrophy mitigating against more significant mass effect. Decreased density in the periventricular and subcortical white matter while non-specific is most likely due to chronic microangiopathy. No calvarial or skull base fracture or scalp hematoma. IMPRESSION: #. New large intra-axial hemorrhage at the cerebellum with intraventricular extension and associated obstructive hydrocephalus due to mass effect at the posterior fossa. #. Results discussed with nurse Reid in the ICU 10/04/2017 9:29 PM EDT
[2017-10-04] MEDS ORDERED: Propofol* 100 ML ONE (21:35)
[2017-10-04] MEDS ORDERED: fentaNYL* 50 MCG/ML 5 ML VIAL (250 MCG VIAL) ONE (21:37)
[2017-10-04] MEDS ORDERED: Rocuronium* 10 MG/ML VIAL ONE (21:42)
[2017-10-04] MEDS ORDERED: Succinylcholine* 20 MG/ML 10 ML VIAL ONE (21:43)
[2017-10-04] MEDS ORDERED: levETIRAcetam IV* 1,000 MG in NS 100 mL IVPB ONE (21:45)
[2017-10-04] MEDS ORDERED: Phytonadione IV (Adult)* 10 MG/ML 1 ML AMP ONE (21:56)
[2017-10-04] MEDS ORDERED: niCARdipine 0.1MG/ML IVPREMIX* 20 MG/200 ML BAG IV SCH (22:00)
[2017-10-04] MEDS ORDERED: Phytonadione 10 mg in 50 mL NS over 30 min IV ONE (22:00)
[2017-10-04] MEDS ORDERED: Phytonadione SUBCUT/IM Adult* 10 MG/ML AMP (IM or SQ not preferred route) IM ONE (22:00)
[2017-10-04] MEDS ORDERED: fentaNYL* 50 MCG/ML 2 ML VIAL (100 MCG VIAL) ONE (22:20)
--- NOTE | 2017-10-04 23:12 | PN ---
Hospitalist Progress Note Date of Service: 10/04/17 Called to bedside to evaluate AMS. PT examined in CT at 2019. PT noted to be lethargic responding to pain only and non verbal. Patient underwent CT scan and noted that patient had significant posterior hemorrhage. Patient tx emergently to ICu. Neurosurgery called to bedside. Patient given Kcentra, keppra 1 gram iv, vitamin K. Patient started on nicardipine drip to lower BP as bp had been running 170/100.Family called at this point HCP states perseve life until she can get to hospital. Patient emergently intubated. At this point Neursrug at bedside. After intubation and patient stabilized call placed to Dr. Ibrahim to update him of new patient and condition. now at bedside and speaking with neurosurgery. Given severity of bleed and poor prognosis family decided to forgo surgery given poor prognosis. I discussed with that without surgery pt would likely not survive. Patient BP now in 70's nicardipine stopped. and HCP states she wants patient comfortable and DNR. I updated Dr. Ibrahim about this change will no esculate care will contact [facility] will ordered PRN vladimirly and keep comfortable. Critical care time spent exclusive of procedures 110 minutes.
[2017-10-04] MEDS ORDERED: Propofol* 100 ML IV SCH (23:45)
[2017-10-05] MEDS: fentaNYL* 50 MCG/ML 2 ML VIAL (100 MCG VIAL) IV SLOW PU PRN ×3 (00:55→06:31)
--- NOTE | 2017-10-05 02:01 | CONS ---
CC: Dr. Feliciano; Hospitalist Service * CARDIOLOGY CONSULTATION REPORT: DATE OF CONSULT: 10/04/17 REASON FOR CONSULT: Rate control of chronic atrial fibrillation. CHIEF COMPLAINT: The patient's chief complaint on arrival to the emergency department at 11 this morning was weakness, nausea, and vomiting. HISTORY OF PRESENT ILLNESS: The patient is unable to provide a history at the time I saw her. In reviewing emergency department notes from this morning, the patient arrived at [facility] by ambulance with weakness, nausea , vomiting since 2 in the morning and headaches since 9 this morning. She has had weakness, trouble ambulating, and dizziness. Yesterday she had some nausea and vomiting that they thought might have been food poisoning from lunch. I was asked about 8 o'clock tonight to see the patient because her chronic atrial fibrillation, ventricular rate was very fast and I was asked to assist with rate control. On arriving to the patient's room, the patient was lying flat, appeared extremely ill, she was not able to talk, delirious, tachypneic, skin was flushed , but at the same time appeared agitated and uncomfortable. The patient had an aide with her, she said this was the most comfortable she had seen her since she has been sitting with her. PAST MEDICAL HISTORY: 1. Chronic atrial fibrillation with rapid ventricular rate and difficulty with rate control. 2. Aortic valve replacement for aortic stenosis in 2009 (tissue valve). 3. Coronary artery disease, history of stenting. 4. Dyslipidemia. 5. Hypertension. 6. Hyponatremia. 7. Depression. 8. Sleep apnea. 9. Vitamin D and vitamin B12 deficiencies. 10. Degenerative arthritis. PAST SURGICAL HISTORY: Include: 1. Aortic valve replacement, 2009. 2. Cystocele repair, 2006. 3. Tonsillectomy. 4. Tubal ligation. 5. Coronary stents, 2001 and 2009. OUTPATIENT MEDICATIONS: Include, 1. Coumadin. 2. Lipitor 20 mg a day. 3. Aspirin 81 mg a day. 4. Vitamin D 1000 units a day. 5. Cyanocobalamin 500 mcg a day. 6. Tylenol p.r.n. 7. Diltiazem CD 240 mg a day. 8. Sertraline 100 mg a day. 9. Vitamin B12. CURRENT INPATIENT MEDICATIONS: Include: 1. Tylenol p.r.n. 2. Maalox p.r.n. 3. Albuterol nebulizer. 4. Lipitor 20 mg a day. 5. Vitamin D 1000 units in the morning. 6. Vitamin B12 of 500 mcg a day. 7. Cardizem CD 240 mg a day. 8. Milk of magnesia p.r.n. 9. She received IV Lopressor 5 mg q. 6 hours p.r.n. 10. Zofran 4 mg q. 4 hours p.r.n., nausea and vomiting. 11. Normal saline. ALLERGIES: Include MORPHINE and CODEINE. FAMILY HISTORY: Significant for a son with Kateryna's chorea. Her father had a heart attack at age 59. Her mother had a history of colon cancer and hypertension. SOCIAL HISTORY: The patient lives with her . Prior to that, she has had two divorces and three children. She is retired. She smoked for 18 years, two- and-a half pack per day, but has quit over 40 years. No history of alcohol use or abuse. REVIEW OF SYSTEMS: Unable to be obtained as the patient was unable to talk. PHYSICAL EXAM: On exam, the patient is 5 feet 6 inches, weighs 150 pounds with a BMI of 24. Her blood pressure was 175/97, pulse was 160, in AFib, oxygen saturation 94% on room air, respiratory rate 20. General appearance: Elderly woman lying flat in bed, appearing acutely ill. She was tachypneic. Her skin was erythematous and she appeared uncomfortable with mild delirious type agitation. HEENT: Skin was erythematous. Neck: Without increased JVP. Coronary: S1, S2. Irregularly irregular and very tachycardic. I heard her heart sounds. Abdomen: Diminished. I did not hear bowel sounds. The abdomen was non-distended. No evidence of guarding or increased discomfort with palpation. Lower extremities show some changes of chronic venous stasis but were warm and well-perfused. Skin: Hot, dry, and hyperemic. Formal neurological exam not done but her baseline is normal mentation, able to follow commands. Aurora did not respond to calling out her name, did not open her eyes, did not follow any commands. DIAGNOSTIC STUDIES/LAB DATA: Labs show white count 11.4, hemoglobin 16.3, hematocrit 47, platelets 247, increase in neutrophils. INR 3.05. Sodium 131, potassium 3.6. Glucose 192. BUN 10, creatinine 0.55. AST of 20, ALT 20. Troponin #1, 0.00, troponin #2, 0.00. BNP of 406. TSH 1.07. Urinalysis shows specific gravity 1.007, 2+ protein, trace white cells, nitrite negative, esterase negative. Echocardiogram from today showed mild global hypokinesis with an ejection fraction of 45-50%, moderate thickening of the mitral valve leaflets and mitral annular calcification with mild mitral insufficiency, borderline mitral stenosis , mild to moderate tricuspid insufficiency and PA pressure of 35 mmHg. IMPRESSION AND PLAN: In summary, Aurora Santiago is an 81-year-old woman whom I last saw on 08/24/17, who although has some depression and early dementia has been mentating normally with a good quality of life. The patient now presents with history concerning for food poisoning yesterday, followed by weakness, dizziness, nausea, vomiting. In reviewing my notes of 08/24/17, the patient had a fall in April 2017. The patient appears to have deteriorated significantly from her presentation to the ED at 11 this morning. Her mentation is vastly different than her baseline. I am concerned there is an acute medical process that has not yet been diagnosed. I have recommended a KUB for her lack of bowel sounds and evidence of distress along with mentation changes and then discussing with the hospitalist which included discussions about the possibility of cerebellar stroke presenting with nausea, vomiting. A CT scan was ordered by the hospitalist. This revealed a large LOOP SEWER bleed in the cerebellar region. See hospitalist note on transfer. Regarding the patient's atrial fibrillation and rapid ventricular rate which I was consulted for, the rapid ventricular rate is secondary to the underlying acute process. I had originally recommended the diltiazem drip while she was on the floor when she was undergoing additional workup with the parameters. I had recommended blood pressure guidelines of keeping blood pressure above 110. In light of the subdural hematoma, the hospitalist and Neurosurgery and Neurology can make decisions regarding blood pressure guidelines. Again, the tachycardia is appropriate, any rate lowering agent can be used, beta-blockers were avoided in the past due to her depression but not to any actual allergy. Aurora's presentation is grave. We will follow more distantly at this point. We are available at any point in time if consulted. [id number]/[facility] #: [id number] E.J. NOBLE HOSPITALBernardo
--- NOTE | 2017-10-05 02:26 | CONS ---
CONSULTATION NOTE: DATE OF CONSULT: 10/04/17 HISTORY OF PRESENT ILLNESS: The patient is a very pleasant 81-year-old female with significant past medical history of atrial fibrillation, on Coumadin; hypertension, who was admitted after presenting to the emergency room with complaints of nausea and vomiting. As patient's , Chelsea, reported the patient and her being dining out, the patient started having nausea since 2 o' clock in the morning. Initially, it was thought that she had food poisoning, but because of difficulty with ambulation as well as altered mental status, she was brought to the emergency room. The patient has history of dementia, but she was able to live with her and able to ambulate and perform some of her daily chores. Requested to see the patient because of abrupt change in her mental status and CT scan findings consistent with large cerebellar intracranial hemorrhage with intraventricular extension and hydrocephalus. The patient was intubated in the intensive care unit and was given Kcentra for INR of 3.05. History was obtained from the patient's chart and the patient's , Chelsea. PAST MEDICAL HISTORY: AFib; hypertension; aortic valve replacement secondary to aortic stenosis; coronary artery disease; anxiety; osteoarthritis; obstructive sleep apnea, on CPAP; lumbar stenosis; chronic hyponatremia. HOME MEDICATIONS: The patient is on: 1. Tylenol. 2. Aspirin. 3. Atorvastatin. 4. Vitamin D. 5. Vitamin B12. 6. Cardizem. 7. Coumadin. ALLERGIES: CODEINE and MORPHINE. FAMILY HISTORY: Noncontributory. SOCIAL HISTORY: Tobacco: Negative. Alcohol: Negative. Recreational drugs: Negative. 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 She has 3 children that live away. PHYSICAL EXAM: The patient is status post intubation. She does not open her eyes to pain. She does not follow commands. She would flex upper extremities to pain, right more than left, would extend the lower extremities. She does not grimace to pain. Her pupils are 2 mm and nonreactive. She has corneal reflexes and she has weak gag and cough. Deep tendon reflexes are +2 bilaterally. She has spasticity in the lower extremities. No clonus. No Babinski. DIAGNOSTIC STUDIES/LAB DATA: The patient had a CT scan of the brain revealing large cerebellar hemorrhage involving mostly the left cerebral hemisphere with extension in the intraventricular space and significant hydrocephalus. ASSESSMENT: The patient is a very pleasant 81-year-old female with significant past medical history including atrial fibrillation, on Coumadin with altered mental status and CT scan finding consistent with large cerebellar intracranial hemorrhage and hydrocephalus. PLAN: The patient at this point is intubated. After discussing in extent with the patient's , Chelsea, who is her healthcare proxy, regarding the patient' s prognosis and treatment options, surgical intervention in the form of posterior craniectomy and evacuation of intracranial hemorrhage and possible placement of ventriculostomy was offered to the patient's . Based on the patient's pre- event comorbidities, age as well as dementia and patient's prior wishes, the patient's decided to continue with conservative measurements and to not proceed with surgical intervention understanding the grim prognosis. The patient's code status will be addressed by the Internal Medicine and ICU team. Thank you very much for allowing us to participate in the care of this patient. Please do not hesitate to contact our office in case you have further questions or concerns regarding this patient. [id number]/[facility] #: [id number] MICHAEL
--- NOTE | 2017-10-05 03:33 | PRO ---
CC: Dr. Rosado; Dr. Feliciano * DATE OF PROCEDURE: 10/04/17 - ROOM #ICU-05 SERVICE: Critical Care Medicine. LOCATION OF PROCEDURE: ICU. PROCEDURE PERFORMED: Endotracheal intubation. PROCEDURALIST: Sherri Barber NP being supervised with Dr. Rosado from the ER. Consent obtained, no. Procedure performed emergently. Time-out held, not indicated. INDICATIONS: Acute respiratory failure secondary to posterior intracranial hemorrhage and declining mental status. DESCRIPTION OF PROCEDURE: Oxygenation was maintained and vital signs were monitored. The patient was placed in a supine position. The patient was premedicated with 50 of fentanyl. She was given 100 of succinylcholine and 2.5 mg of rocuronium. GlideScope #4 blade was inserted with a grade 1 view. An 8- 0 endotracheal tube was inserted to 26 at the lip. Good chest rise with breath sounds were appreciated in bilateral lung jung, end-tidal CO2 initially was 25. The patient tolerated the procedure well. Chest x-ray is pending at this point. SHERRI BARBER NP [id number]/[facility] #: [id number] I supervised the procedure by the physician medical office assistant instructor. I participated in the procedure including ordering the RSI medications. - Dr. Rosado. MICHAEL
[2017-10-05] MEDS ORDERED: fentaNYL PCA* 20 ML PCA SCH (05:00)
[2017-10-05] MEDS ORDERED: fentaNYL* 50 MCG/ML 2 ML VIAL (100 MCG VIAL) ONE (05:53)
[2017-10-05 06:22] VITALS: BP 90/70
--- NOTE | 2017-10-05 06:24 | PN ---
Hospitalist Progress Note Date of Service: 10/05/17 0500 received call from nurse that patient family requesting extubation. Family requesting to extubate at sunrise. 0545 patient examined no corneal reflex, no gag reflux and no spont resp over vent. Pt stating that patient would not want to be on ventilator and that she would like to stop the ventilator as she feels its prolonging the patients suffering. Pt started on fent drip for comfort. Patient terminally extubated at 0600 per family wishes and requests. Family and wive aware that patient will likely after extubation and again requesting comfort measures only.
--- NOTE | 2017-10-05 07:23 | RAD ---
INDICATION: Status post intubation. COMPARISON: Comparison is made to prior study from 10 hours earlier of the same date. TECHNIQUE: 2 portable films of the chest were obtained. FINDINGS: The patient is status post intubation. The endotracheal tube tip is located approximately 2 cm above the red at the level of the clavicular heads. The left costophrenic angle is cut off on both films. The patient is status post sternotomy and cardiac valve surgery. The heart is within normal limits in size. The lungs are clear. No pleural effusion is seen. IMPRESSION: 1. STATUS POST INTUBATION. 2. POSTSURGICAL CHANGES, CLEAR LUNGS.
[2017-10-05] MEDS ORDERED: Cholecalciferol TAB* 1000 UNITS PO SCH (09:00)
[2017-10-05] MEDS ORDERED: Aspirin EC TAB* 81 MG TAB.EC PO SCH (09:00)
--- NOTE | 2017-10-05 11:39 | DS ---
AMENDED REPORT NOW INCLUDES COSIGNER DESIGNATION CC: Dr. Feliciano; Dr. Arreaga * DISCHARGE/ SUMMARY: DATE OF ADMISSION: 10/04/17 DATE OF EXPIRATION: 10/05/17 TIME OF EXPIRATION: 6:31 in the morning. MY ATTENDING PHYSICIAN WHILE IN THE HOSPITAL: Dr. Ghosh.* (DICTATED BY SHERRI TOMLINSON NP) HISTORY OF PRESENTING ILLNESS: Ms. Santiago was an 81-year-old female patient, who carried a history of atrial fibrillation, fkmc-ma-iphkslll dementia, CAD, KAVON. She had a history of coming in yesterday with complaints of nausea with vomiting, found to be in AFib with RVR. There was a concern that the nausea and vomiting may have been related to gastroenteritis, possible dehydration. She was admitted for the AFib with RVR. This was rate controlled; however, unfortunately while she was here, it was noted that she was becoming more drowsy and lethargic, and was brought to my attention around 8 o'clock last night. A stat CT scan was ordered. CT scan at that point did reveal a large cerebellar hemorrhage. The patient was emergently transferred to the ICU. She underwent intubation and the family was notified. They initially requested everything be done to preserve life. Dr. Hartman was called to the bedside. Long discussion was had with the family about the poor prognosis and the fact that she most likely will not have a meaningful recovery. The and healthcare proxy said that Aurora would not want to be confined to a alf and would not want to have a long rehabilitation, both of which were real possibilities and most likely the course that would happen if she even survived the ordeal after surgery. Ultimately, the patient's and healthcare proxy felt that she did not want surgery, she opted for comfort measures only. At that point, we decided not to escalate care, we kept her comfortable. At sunrise today, around 6 o'clock in the morning, the patient's decided that Aurora would not want to even be intubated. Her neurological status had declined throughout the night. She had lost her corneal reflexes. She was not breathing over the vent. She had no gag or cough reflexes. The patient at 6 this morning was terminally extubated. At 6:31, she was found to be asystole, she was pronounced . Autopsy was declined by the family and the case was referred to the ME given the fact that she was admitted within 24 hours. Autopsy, again by the ME, was not requested given the fact that the cause of is known. The patient again was pronounced at 6:31. She remained comfortable. All questions posed by the patient's were answered. TIME SPENT: On this discharge was less than 30 minutes, greater than half of time was spent [id number] with the patient going over the cause of ; other half time spent implementing and doing the certificate. I did discuss this with my attending, Dr. Ghosh, he was in agreement. SHERRI TOMLINSON, LISA [id number]/[facility] #: [id number] MTDBernardo
== END 2017-10-05 06:31 | disposition expired | DRG 308 ==
LOC: ED 10:22 → MEDTELE 12:47 → ICU 21:13
PROVIDERS: ADMIT Internal Medicine; ATTEND Internal Medicine
PROC: 0BH17EZ Insertion of Endotracheal Airway into Trachea, Via Natural or Artificial Opening (ICD-10-PCS; principal; 2017-10-04)
PROC: 5A1935Z Respiratory Ventilation, Less than 24 Consecutive Hours (ICD-10-PCS; 2017-10-04)
PROC: 30283B1 Transfusion of Nonautologous 4-Factor Prothrombin Complex Concentrate into Vein, Percutaneous Approach (ICD-10-PCS; 2017-10-04)
DX: I48.0 Paroxysmal atrial fibrillation (principal); I61.4 Nontraumatic intracerebral hemorrhage in cerebellum; E87.1 Hypo-osmolality and hyponatremia; G91.9 Hydrocephalus, unspecified; K52.9 Noninfective gastroenteritis and colitis, unspecified; I48.2 Chronic atrial fibrillation; R79.1 Abnormal coagulation profile; I25.10 Atherosclerotic heart disease of native coronary artery without angina pectoris; E78.00 Pure hypercholesterolemia, unspecified; I10 Essential (primary) hypertension; M19.90 Unspecified osteoarthritis, unspecified site; H91.90 Unspecified hearing loss, unspecified ear; M48.061 Spinal stenosis, lumbar region without neurogenic claudication; F03.90 Unspecified dementia, unspecified severity, without behavioral disturbance, psychotic disturbance, mood disturbance, and anxiety; I08.1 Rheumatic disorders of both mitral and tricuspid valves; E86.0 Dehydration; G47.33 Obstructive sleep apnea (adult) (pediatric); F41.9 Anxiety disorder, unspecified; F32.9 Major depressive disorder, single episode, unspecified; J96.00 Acute respiratory failure, unspecified whether with hypoxia or hypercapnia; Z88.5 Allergy status to narcotic agent; Z87.01 Personal history of pneumonia (recurrent); Z95.2 Presence of prosthetic heart valve; Z95.5 Presence of coronary angioplasty implant and graft; Z97.4 Presence of external hearing-aid; Z87.891 Personal history of nicotine dependence; Z82.49 Family history of ischemic heart disease and other diseases of the circulatory system; Z80.0 Family history of malignant neoplasm of digestive organs; Z91.81 History of falling
CPT/HCPCS: 36415; 36600; 70450; 71045; 80053; 81003; 81015; 82803; 83605; 83880; 84443; 84484; 85025; 85610; 86140; 87040; 87086; 93005; 93306; 94002; 99283; A9270-GY; C9132; J0330; J2704; J3010; J3430; J3490